=== PATIENT | female | born 1935 | race Hispanic/Latino ===

== ENCOUNTER 2017-02-15 15:05 | Observation (INO) | payer MEDICARE, OTHER ==
[2017-02-15 15:12] VITALS: BMI 25.4
[2017-02-15 16:07] LABS: ADD MANUAL DIFF? NO
--- NOTE | 2017-02-15 16:09 | ED PDOC ---
Arrival/HPI - General Historian: Patient - History of Present Illness Time/Duration: Other (2 weeks of cough) Symptom Onset: Gradual Symptom Course: Improving Severity Level: 3 - General Chief Complaint: Cough, Cold, Congestion Time Seen by Provider: 02/15/17 15:07 - History of Present Illness Narrative History of Present Illness (Text): 02/15/17 15:32 81YR old female presents today with 2 week history of productive cough, 3 day history of right ear pain and 1 week history of throat pain. no vomiting/ diarrhea. no abdominal pain. pt states she was feeling better but then today she felt for a brief moment that she couldnt catch her breath. c/o upper back pain left sided. pt also states she has been having intermittent pain to the left side of the chest that she attributes to her hx of post herpetic neuralgia. (Esther Garg) Past Medical History - Provider Review Nursing Documentation Reviewed: Yes - Travel History Have you recently traveled outside [place] w/in the past 3 mons?: No - Infectious Disease Hx of Infectious Diseases: None - Tetanus Immunization Tetanus Immunization: Unknown - Reproductive Menopause: Yes - Cardiac Hx Cardiac Disorders: Yes Hx Pacemaker: No - Pulmonary Hx Respiratory Disorders: Yes Hx Tuberculosis: Yes - Neurological Hx Neurological Disorder: No Hx Paralysis: No - HEENT Hx HEENT Disorder: Yes (pain in left ear) - Renal Hx Renal Disorder: No - Endocrine/Metabolic Hx Endocrine Disorders: Yes Hx Diabetes Mellitus Type 2: Yes Hx Hypothyroidism: Yes - Hematological/Oncological Hx Blood Transfusions: No Hx Blood Transfusion Reaction: No - Integumentary Hx Dermatological Disorder: Yes (lesion on nose removed, unsure if cancerous) - Musculoskeletal/Rheumatological Hx Musculoskeletal Disorders: No - Psychiatric Hx Emotional Abuse: No Hx Physical Abuse: No Hx Substance Use: No - Past Surgical History Past Surgical History: No Previous - Surgical History Other/Comment: sinus surgery - Anesthesia Hx Anesthesia: Yes Hx Anesthesia Reactions: No Hx Malignant Hyperthermia: No - Suicidal Assessment Feels Threatened In Home Enviroment: No Family/Social History - Physician Review Nursing Documentation Reviewed: Yes Family/Social History: Unknown Family HX Smoking Status: Never Smoked Hx Alcohol Use: No Hx Substance Use: No Hx Substance Use Treatment: No Allergies/Home Meds Allergies/Adverse Reactions: Allergies No Known Allergies Allergy (Verified 02/15/17 15:12) Home Medications: Home Meds Medication Instructions Recorded Confirmed Fenofibrate, Micronized 54 mg PO DAILY 07/29/12 02/15/17 [Fenofibrate Micronized] Levothyroxine Sodium 0.075 mg PO DAILY 07/29/12 02/15/17 Metformin Hydrochloride [Metformin 1,000 mg PO BID 07/29/12 02/15/17 HCl] Glimepiride 1 mg PO DAILY 07/15/14 02/15/17 Simvastatin 40 mg PO DAILY 07/15/14 02/15/17 Review of Systems - Review of Systems Constitutional: absent: Fatigue, Fevers ENT: Sore Throat, Sinus Congestion Respiratory: SOB, Cough Cardiovascular: absent: Chest Pain, Palpitations, Syncope Gastrointestinal: absent: Abdominal Pain, Nausea, Vomiting Musculoskeletal: absent: Arthralgias Skin: absent: Rash, Pruritis Neurological: absent: Headache, Dizziness Psychiatric: absent: Anxiety, Depression Physical Exam Vital Signs Reviewed: Yes Temperature: Afebrile Blood Pressure: Hypertensive Pulse: Regular Respiratory Rate: Normal Appearance: Positive for: Well-Appearing, Non-Toxic, Comfortable Pain Distress: None Mental Status: Positive for: Alert and Oriented X 3 - Systems Exam Head: Present: Atraumatic Conjunctiva: Present: Normal Ears: Present: Other (no mastoid tenderness or erythema .). No: Normal (B/l cerumen impactions. ) Mouth: Present: Moist Mucous Membranes, Normal Tounge, Normal Teeth. No: Drooling, Trismus Pharnyx: Present: Normal. No: ERYTHEMA, EXUDATE, TONSILS ENLARGED, Peritonsilar Swelling, Uvular Deviation, Muffled/Hoarse Voice, Strider Nose (External): Present: Atraumatic Nose (Internal): Present: Normal Inspection Neck: Present: Normal Range of Motion, Trachea Midline. No: Lymphadenopathy Respiratory/Chest: Present: Clear to Auscultation, Good Air Exchange. No: Respiratory Distress, Accessory Muscle Use, Wheezes, Retracting, Tachypneic Cardiovascular: Present: Regular Rate and Rhythm Abdomen: Present: Normal Bowel Sounds. No: Tenderness, Distention, Peritoneal Signs Neurological: Present: GCS=15 Skin: Present: Warm, Dry, Normal Color. No: Rashes Psychiatric: Present: Alert, Oriented x 3 Medical Decision Making ED Course and Treatment: 02/15/17 16:12 81yr old female with cough x 2 weeks with sore throat and earache. developed a moment of sob today. resolved. cxr:FINDINGS: LUNGS: Mild patchy opacities at the left lung base and right perihilar region. Please note that chest x-ray has limited sensitivity for the detection of pulmonary masses. PLEURA: No significant pleural effusion identified. No definite pneumothorax . CARDIOVASCULAR: Heart size appears within normal limits. Atherosclerotic calcifications of the aorta. OSSEOUS STRUCTURES: Degenerative changes. VISUALIZED UPPER ABDOMEN: Unremarkable. OTHER FINDINGS: None. IMPRESSION: Mild patchy opacities at the left lung base and right perihilar region. Developing infiltrate cannot be excluded. cbc: wnl cmp: glucose; 58, ca; 11.5 trop: wnl BNP: 512 ekg;normal sinus rhythm at 86 bpm normal intervals no ST elevations normal axis 02/15/17 18:01 pt reassessment; feeling better; discussed all results with patient in depth; will admit patient observational status for CP, SOB, abnormal xray, elevated bnp. will add rocephin and zithromax to cover for developing Infiltrate as patient with cough x 2 weeks. case discussed with dr. sanchez in depth. PT's PMD; dr. dodd. case discussed with dr. pena covering for dr. beaulieu; accepts observational status admission; she would like CT of chest without contrast. impression; Chest pain, shortness of breath, elevated bnp, abnormal xray admit observational status to tele; (Esther Garg) - Lab Interpretations Lab Results: 02/15/17 16:00 02/15/17 16:00 Lab Results 02/15/17 18:40: Urine Color Yellow, Urine Appearance Clear, Urine pH 6.0, Ur Specific [place] 1.025, Urine Protein Negative, Urine Glucose (UA) Negative, Urine Ketones Negative, Urine Blood Trace-intact H, Urine Nitrate Negative, Urine Bilirubin Negative, Urine Urobilinogen 0.2, Ur Leukocyte Esterase Trace H , Urine RBC 0 - 2, Urine WBC 5 - 10, Ur Epithelial Cells 0 - 2, Urine Bacteria Small 02/15/17 16:00: WBC 9.7 D, RBC 3.98, Hgb 13.1, Hct 38.7, MCV 97.2, MCH 32.9, MCHC 33.9, RDW 12.3, Plt Count 275, MPV 9.3, Gran % 65.1, Lymph % (Auto) 25.8, [place] % (Auto) 8.2 H, Eos % (Auto) 0.8 L, Baso % (Auto) 0.1, Gran # 6.31, Lymph # 2.5, [place] # 0.8 H, Eos # 0.1, Baso # 0.01 02/15/17 16:00: Sodium 141, Potassium 4.3, Chloride 104, Carbon Dioxide 28, Anion Gap 13, BUN 19, Creatinine 0.9, Est GFR ( Amer) > 60, Est GFR (Non- Af Amer) 60, Random Glucose 58 L, Calcium 11.5 H, Total Bilirubin 0.5, AST 41 H , ALT 31, Alkaline Phosphatase 67, Lactate Dehydrogenase 403, Total Creatine Kinase 54, Troponin I < 0.01, NT-Pro-B Natriuret Pep 512 H, Total Protein 8.3, Albumin 4.4, Globulin 3.8, Albumin/Globulin Ratio 1.2 - RAD Interpretation Radiology Orders: 02/15/17 15:31 CHEST TWO VIEWS (PA/LAT) [RAD] Stat 02/15/17 18:34 CHEST W/O CONTRAST [CT] Stat - Medication Orders Current Medication Orders: Acetaminophen (Tylenol 325mg Tab) 650 mg PO Q6H PRN PRN Reason: Fever >100.4 F Albuterol/Ipratropium (Duoneb 3 Mg/0.5 Mg (3 Ml) Ud) 3 ml IH [id number] [facility] Last Admin: 02/15/17 20:30 Dose: 3 ml Aspirin (Aspirin Chewable) 81 mg PO DAILY GRACE Atorvastatin Calcium (Lipitor) 20 mg PO HS GRACE Fenofibrate (Tricor) 48 mg PO DAILY GRACE Glimepiride (Amaryl) 1 mg PO BRK [facility] Ceftriaxone Sodium (Rocephin 1 Gram Ivpb) 1 g in 100 mls @ 100 mls/hr IVPB DAILY GRACE PRN Reason: Protocol Azithromycin (Zithromax 500mg In Ns) 500 mg in 250 mls @ 167 mls/hr IVPB DAILY GRACE PRN Reason: Protocol Insulin Human Regular (Humulin R Med) 0 units SC ACHS GRACE PRN Reason: Protocol Levothyroxine Sodium (Synthroid) 75 mcg PO ACB GRACE Metoprolol Succinate (Toprol Xl) 25 mg PO BRK GRACE Last Admin: 02/15/17 20:29 Dose: 25 mg Non-Formulary Medication (Metformin Hydrochloride [Metformin Hcl]) 1,000 mg PO BRKDIN GRACE Pantoprazole Sodium (Protonix Ec Tab) 40 mg PO 0630 GRACE Discontinued Medications Aspirin (Aspirin) 325 mg PO STAT STA Stop: 02/15/17 17:59 Last Admin: 02/15/17 19:41 Dose: 325 mg Ceftriaxone Sodium (Rocephin 1 Gram Ivpb) 1 g in 100 mls @ 200 mls/hr IVPB STAT STA PRN Reason: Protocol Stop: 02/15/17 18:26 Last Admin: 02/15/17 19:21 Dose: 200 mls/hr Azithromycin (Zithromax 500mg In Ns) 500 mg in 250 mls @ 167 mls/hr IVPB STAT STA PRN Reason: Protocol Stop: 02/15/17 19:26 Disposition/Present on Arrival - Present on Arrival Any Indicators Present on Arrival: No History of DVT/PE: No History of Uncontrolled Diabetes: No Urinary Catheter: No History of Decub. Ulcer: No History Surgical Site Infection Following: None - Disposition Have Diagnosis and Disposition been Completed?: Yes Disposition Time: 18:05 Patient Plan: Observation - Disposition Diagnosis: Chest pain, Abnormal chest x-ray, Elevated brain natriuretic peptide (BNP) level, Cough Disposition: HOSPITALIZED Patient Problems: Current Active Problems Problem Status Onset Abnormal chest x-ray Acute Chest pain Acute Cough Acute Elevated brain natriuretic peptide (BNP) level Acute Condition: FAIR
[2017-02-15 16:25] LABS: BASO # 0.01 K/mm3 (0.0-2.0); BASO % 0.1 % (0.0-3.0); EOS # 0.1 (0.0-0.7); EOS % 0.8 % (1.5-5.0); GRAN # 6.31 (1.4-6.5); GRAN % 65.1 % (50.0-68.0); HEMATOCRIT 38.7 % (36.0-48.0); LYMPH # 2.5 (1.2-3.4); LYMPH % 25.8 % (22.0-35.0); MEAN CELL VOLUME 97.2 fL (80.0-105.0); MEAN CORPUSCULAR HEMOGLOBIN 32.9 pg (25.0-35.0); MEAN CORPUSCULAR HGB CONC 33.9 g/dl (31.0-37.0); MEAN PLATELET VOLUME 9.3 fl (7.0-11.0); MONO # 0.8 (0.1-0.6); MONO % 8.2 % (1.0-6.0); PLATELET COUNT 275 10^3/uL (120.0-450.0); RED CELL DISTRIBUTION WIDTH 12.3 % (11.5-14.5); WHITE BLOOD COUNT 9.7 10^3/ul (4.5-11.0)
[2017-02-15 16:34] LABS: ALB/GLOB RATIO 1.2 (1.1-1.8); ALKALINE PHOSPHATASE 67 U/L (38-133); ALT/SGPT 31 U/L (7-56); AST/SGOT 41 U/L (15-39); BILIRUBIN,TOTAL 0.5 mg/dL (0.2-1.3); BLOOD UREA NITROGEN 19 mg/dL (7-21); CALCIUM 11.5 mg/dL (8.4-10.5); CARBON DIOXIDE 28 mmol/L (21-33); CHLORIDE 104 mmol/L (98-107); GFR AFRICAN-AMERICAN > 60; GLUCOSE,RANDOM 58 mg/dL (70-110); POTASSIUM 4.3 mmol/L (3.6-5.0); SODIUM 141 mmol/L (132-148); TOTAL PROTEIN 8.3 g/dL (5.8-8.3)
--- NOTE | 2017-02-15 16:57 | RAD ---
HISTORY: COUGH COMPARISON: Chest x-ray performed 07/15/14 TECHNIQUE: Chest PA and lateral FINDINGS: LUNGS: Mild patchy opacities at the left lung base and right perihilar region. Please note that chest x-ray has limited sensitivity for the detection of pulmonary masses. PLEURA: No significant pleural effusion identified. No definite pneumothorax . CARDIOVASCULAR: Heart size appears within normal limits. Atherosclerotic calcifications of the aorta. OSSEOUS STRUCTURES: Degenerative changes. VISUALIZED UPPER ABDOMEN: Unremarkable. OTHER FINDINGS: None. IMPRESSION: Mild patchy opacities at the left lung base and right perihilar region. Developing infiltrate cannot be excluded.
[2017-02-15 17:07] LABS: TROPONIN I < 0.01 ng/mL
[2017-02-15] MEDS ORDERED: cefTRIAXone 1 gm 1 G/100 ML BAG IVPB STA (17:57)
[2017-02-15] MEDS ORDERED: Azithromycin 500MG/NS 250ml 500 MG/250 ML BAG IVPB STA (17:57)
[2017-02-15 18:57] LABS: URINE APPEARANCE CLEAR (CLEAR); URINE BILIRUBIN NEGATIVE (NEGATIVE); URINE BLOOD TRACE-INTACT (NEGATIVE); URINE COLOR YELLOW (YELLOW); URINE GLUCOSE (UA) NEGATIVE (NEGATIVE); URINE KETONE NEGATIVE (NEGATIVE); URINE LEUKOCYTE ESTERASE TRACE Leu/uL (NEGATIVE); URINE PROTEIN NEGATIVE mg/dL (<30 mg/dL); URINE UROBILINOGEN 0.2 E.U./dL (<1 E.U./dL)
[2017-02-15 19:21] LABS: URINE BACTERIA SMALL (NEG); URINE EPITHELIAL CELLS 0 - 2 /hpf (0-5); URINE RBC 0 - 2 /hpf (0-2)
--- NOTE | 2017-02-15 19:50 | CT ---
EXAM: CT Chest Without Intravenous Contrast CLINICAL HISTORY: 81 years old, female; Abnormal findings; Abnormal radiologic exam of lung or chest; Additional info: Cough/ R/O infiltrate TECHNIQUE: Axial computed tomography images of the chest without intravenous contrast. This CT exam was performed using one or more of the following dose reduction techniques: automated exposure control, adjustment of the mA and/or kV according to patient size, and/or use of iterative reconstruction technique. MIP reconstructed images were created and reviewed. Coronal and sagittal reformatted images were created and reviewed. EXAM DATE/TIME: 02/15/2017 6:34 PM COMPARISON: CR - CHEST TWO VIEWS (PA/LAT) 02/15/2017 4:22:35 PM FINDINGS: Lungs and pleural spaces: Trachea and main bronchi are patent. There is apical scarring bilaterally left greater than right. There asymmetric groundglass opacities bilaterally. There is dependent atelectasis greatest in the lower lobes and at the lung bases. There is atelectasis/scarring in the lingula. There is a peripheral nodular opacity in the lingula, 9 x 14 mm. There is focal thickening of the minor fissure. There is no lobar or segmental consolidation. There are small blebs at the left base. There are no effusions Heart and vasculature: Heart size is normal.There is fluid in the pericardial recesses. There is mild prominence of the aortic root, 3.8 cm in diameter. There is tapering in the ascending aorta and arch. There the arch and great vessels. Main pulmonary artery is normal in caliber. Mediastinum: The esophagus is unremarkable. There is a small hiatal hernia. There are shotty mediastinal nodes.Love are not optimally evaluated without contrast material. Thyroid: Thyroid is not optimally demonstrated. Bones/joints: There are no acute osseous abnormalities Soft tissues: unremarkable Upper abdomen: There are no acute abnormalities in the visualized portion of the abdomen. There are multiple small calcifications in the liver. IMPRESSION: No lobar or segmental consolidation; atelectasis and scarring greatest at the lung bases; 9 x 14 mm nodular opacity in the lingula scarring versus true nodule; mildly dilated aortic root Additional findings as described above. Footer: As per Fleischner Society guidelines for follow-up and management of pulmonary nodules: Recommend initial follow-up chest CT at 3, 9 and 24 months. Consider contrast enhanced chest CT, PET scan and/or biopsy as clinically warranted.
[2017-02-15] MEDS: Metoprolol Succinate 25 mg XL Tab PO SCH (20:29)
[2017-02-15] MEDS: Albuterol-Ipratrop 3 mg / 0.5 (3 ml) UD IH SCH (20:30)
[2017-02-15] MEDS ORDERED: Pneumococcal 23-Valent Vaccine IM ONE (22:41)
--- NOTE | 2017-02-15 23:27 | HP ---
HISTORY OF PRESENT ILLNESS: The patient is an 81-year-old female who came to Emergency Room because of cough, congestion, shortness of breath, chest pain, back pain, sinus pressure and she has been hav ing sore throat. This morning developed chest pain that was radiating towards the back, so she got c oncerned. Because her shortness of breath increased, she came to Emergency Room for further evaluati on. She states the pain has been intermittent, more so on the left side of the chest. Denies any he moptysis, no hematemesis. Does have a history of shingles in the remote past and intermittently gets chest discomfort on the left side herpetic neuralgia. PAST MEDICAL HISTORY: Is significant for: 1. Non-insulin dependent diabetes. 2. Hypertension. 3. Hyperparathyroidism. 4. Hypothyroidism. 5. Hypercalcemia. ALLERGIES: She is not allergic to any medication. SOCIAL HISTORY: She denies smoking, drinking or alcohol use. FAMILY HISTORY: Not relevant. MEDICATIONS AT HOME: She is on simvastatin 40 mg daily, metformin 1000 twice a day, levothyroxine 75 mcg daily, glimepiride 1 mg daily, fenofibrate 145 mg daily. REVIEW OF SYSTEMS: Significant for chest discomfort, cough, congestion and back pain. PHYSICAL EXAMINATION: GENERAL: She is awake and alert, communicative. VITAL SIGNS: She is afebrile, pulse 89, respirations 19, blood pressure 154/89. LUNGS: Bilateral fair airflow, no rhonchi or crackle. HEART: S1, S2 audible. ABDOMEN: Soft, nontender, no rebound, no guarding. NEUROLOGIC: She is awake and alert, communicative. LABORATORY DATA: WBC is 9.7, hemoglobin 13, hematocrit 38, platelet 275. Chemistry: Sodium 141, po tassium 4.3, chloride 104, CO2 of 28, BUN 19, creatinine 0.9, blood sugar was , was given D50; calcium is 11.5, AST 41, ALT 31. BNP 512, troponin 0.01. X-ray of chest was done that shows mild pa tchy opacity in the left lung base and right perihilar region, possible developing infiltrate. ASSESSMENT AND PLAN: 1. Chest pain, rule out coronary artery disease, rule out underlying pneumonia. 2. History of hypertension. 3. Hyperlipidemia. 4. Non-insulin dependent diabetes. 5. Hypothyroidism. PLAN: The patient will be admitted on telemetry. Will start IV antibiotic. Blood culture and urine cultures are sent. Empirically start her on antibiotic, nebulizer treatment and will resume her med ications. Follow up blood sugar and order for CT scan of the chest and will make further recommendat ion once that is available. aCmpbell Pruett MD cc: [phone] TT: 02/15/2017 23:26:21 dn
[2017-02-15] MEDS: Insulin Reg-MEDIUM-Coverage SC SCH (23:28)
[2017-02-16] MEDS: Pantoprazole 40 mg EC Tab PO SCH (05:55)
[2017-02-16 06:55] LABS: ADD MANUAL DIFF? NO
[2017-02-16 07:12] LABS: ALB/GLOB RATIO 1.1 (1.1-1.8); ALKALINE PHOSPHATASE 69 U/L (38-133); ALT/SGPT 32 U/L (7-56); AST/SGOT 38 U/L (15-39); BILIRUBIN,TOTAL 0.3 mg/dL (0.2-1.3); BLOOD UREA NITROGEN 16 mg/dL (7-21); CALCIUM 10.7 mg/dL (8.4-10.5); CARBON DIOXIDE 27 mmol/L (21-33); CHLORIDE 106 mmol/L (98-107); GFR AFRICAN-AMERICAN > 60; GLUCOSE,RANDOM 82 mg/dL (70-110); MAGNESIUM 1.8 mg/dL (1.7-2.2); PHOSPHOROUS 2.8 mg/dL (2.5-4.5); POTASSIUM 4.7 mmol/L (3.6-5.0); SODIUM 141 mmol/L (132-148); TOTAL PROTEIN 7.5 g/dL (5.8-8.3)
[2017-02-16 07:19] LABS: BASO # 0.01 K/mm3 (0.0-2.0); BASO % 0.1 % (0.0-3.0); EOS # 0.1 (0.0-0.7); EOS % 1.3 % (1.5-5.0); GRAN # 6.28 (1.4-6.5); GRAN % 67.5 % (50.0-68.0); HEMATOCRIT 37.5 % (36.0-48.0); LYMPH % 21.5 % (22.0-35.0); MEAN CELL VOLUME 96.6 fL (80.0-105.0); MEAN CORPUSCULAR HEMOGLOBIN 32.5 pg (25.0-35.0); MEAN CORPUSCULAR HGB CONC 33.6 g/dl (31.0-37.0); MEAN PLATELET VOLUME 9.4 fl (7.0-11.0); MONO # 0.9 (0.1-0.6); MONO % 9.6 % (1.0-6.0); PLATELET COUNT 284 10^3/uL (120.0-450.0); RED CELL DISTRIBUTION WIDTH 12.4 % (11.5-14.5); WHITE BLOOD COUNT 9.3 10^3/ul (4.5-11.0)
[2017-02-16 07:25] LABS: FREE T4 1.11 ng/dL (0.78-2.19)
[2017-02-16] MEDS: Albuterol-Ipratrop 3 mg / 0.5 (3 ml) UD IH SCH ×3 (07:35→19:14)
[2017-02-16 07:39] LABS: THYROID STIMULATING HORMONE 1.58 mIU/mL (0.46-4.68)
[2017-02-16] MEDS: Insulin Reg-MEDIUM-Coverage SC SCH ×4 (08:37→22:24)
[2017-02-16] MEDS: METFORMIN HYDROCHLORIDE 1000 MG PO SCH ×2 (09:02→17:41)
[2017-02-16] MEDS: Levothyroxine 75 MCG TAB PO SCH (09:03)
[2017-02-16] MEDS: Azithromycin 500MG/NS 250ml 500 MG/250 ML BAG IVPB SCH (09:03)
[2017-02-16] MEDS: Metoprolol Succinate 25 mg XL Tab PO SCH (09:03)
[2017-02-16] MEDS: cefTRIAXone 1 gm 1 G/100 ML BAG IVPB SCH (09:03)
--- NOTE | 2017-02-16 11:59 | PN ---
DATE: 02/16/2017 SUBJECTIVE: The patient is an 81-year-old who was brought in because of cough, congestion, chest dis comfort. The patient states she feels a lot better since she came last night. PHYSICAL EXAMINATION: VITAL SIGNS: She is afebrile. Pulse 70, respirations 20, blood pressure 158/74. LUNGS: Bilateral fair airflow, no rhonchi or crackle. HEART: S1, S2 audible. ABDOMEN: Soft, obese, nontender, no rebound, no guarding. NEUROLOGIC: The patient is awake and alert. Able to communicate. No focal deficit. EXTREMITIES: Bilateral leg, no edema. LABORATORY EXAM: Sodium 141, potassium 4.7, chloride 106, CO2 of 27, BUN 16, creatinine 0.8, blood s ugar 182, calcium is 10.7. LFTs are within normal limits. Urinalysis is unremarkable. Cultures are pending. CT scan of the chest was done that shows low lobar segmental consolidation, atelectasis an d scarring, greatest in the lung base. There is a 9 14 mm nodular opacity in the lingular scar ring versus pulmonary nodule, mildly dilated aortic root and additional finding as described above. ASSESSMENT AND PLAN: 1. Chest pain seems to be noncardiac. 2. Asthmatic bronchitis. 3. History of hypertension. 4. Insulin-dependent diabetes. 5. Hyperlipidemia. 6. Hypothyroidism. PLAN: Currently patient is asymptomatic. Continue to monitor the blood pressure. She has been empi rically started on antibiotic because initially impressions on x-ray was possible pneumonia; however, CT scan is negative. I will request for cardiology evaluation. At this point, did not seem to be h ad chest pain, did not seem to be coronary ischemia. We will follow up her troponin and I will reque st for cardiology evaluation. If patient is cleared from cardiology point of view, she can be discha rged on oral antibiotic at home. Campbell Pruett MD cc: [phone] TT: 02/16/2017 11:58:22 Confirmation # [id number] Dictation # [id number] shelbie
--- NOTE | 2017-02-16 16:11 | CON ---
DATE: 02/16/2017 REASON FOR CONSULTATION: Chest pain. HISTORY OF PRESENT ILLNESS: The patient is a 81-year-old female who stated that she has no prior car diac history. She has suffered a herpes zoster infection recently in the left lower abdominal wall q uadrant. She presented because of what she described to me as pain between the shoulder blades. The patient denies any diaphoresis or chest pain. The patient reported to the ER physician that she has a history of a sore throat and right ear pain. The patient was very uncooperative during the histor y taking. SOCIAL HISTORY: The patient is a nonsmoker, nondrinker. She lost her after an open heart avalos rgery recently. MEDICATIONS: Amaryl 1 mg p.o. once a day, aspirin 81 mg once a day, albuterol inhaler q. 6 hours, Li pitor 20 mg once a day, metformin 1 gram twice a day, Protonix 40 mg once a day, Rocephin 1 g daily, Synthroid 75 mcg daily, Toprol-XL 25 mg once a day, Tricor 48 mg once a day, Zithromax 500 mg intrave nously daily. REVIEW OF SYSTEMS: No nausea or vomiting. No fever or chills. The patient does report a recurrence of left lower abdominal pain related to her recent shingles. PHYSICAL EXAMINATION: GENERAL: The patient is an elderly female who does not appear to be in any distress. VITAL SIGNS: Blood pressure 132/70, heart rate 77, temperature 97.1, respirations 20. HEENT: Normocephalic. NECK: No JVD. CHEST: Clear. HEART: S1, S2 regular. EXTREMITIES: No edema. EKG revealed sinus rhythm, LVH by voltage. Chest x-ray revealed normal cardiac silhouette, prominent bronchovascular markings. LABORATORY DATA: Hemoglobin and hematocrit 12.6 and 37.5, white count and platelet count are within normal limits. SMA-7 is within normal limits. Calcium on admission was 11.5 and today is 10.7. Two sets of troponins are negative. TSH level and free T4 were within normal limits. Chest CT scan wit hout contrast revealed apical scarring bilaterally, left greater than right. There is asymmetric pinky und glass opacity bilaterally. There is dependent atelectasis, greatest in the lower lobe at the ashley g bases. There is atelectasis/scarring in the lingula, and there is peripheral irregular opacity in the lingula 9 mm x 14 mm. There is focal thickening of the minor fissure and there is no lobar or seg mental consolidation. There are small blebs at the left base, no effusion. ASSESSMENT: 1. Chest pain, myocardial infarction is ruled out. 2. Hypercalcemia. 3. Bilateral ground-glass opacities on chest CT scan as well as apical scarring and peripheral lung nodule. 4. Hypothyroidism. 5. Diabetes mellitus and hypertension. RECOMMENDATIONS: Continue current aspirin 81 mg once a day, Lipitor 20 mg once a day, Synthroid 75 m cg once a day. Continue IV Rocephin and IV Zithromax. Continue Tricor at 40 mg daily. Obtain an ec hocardiogram. Optimize intravenous hydration in view of hypercalcemia and workup for hypercalcemia s hould be initiated keeping in mind ruling out malignancy. Sohail Emerson MD cc: [id number] TT: 02/16/2017 16:10:24 Confirmation # [id number] Dictation # [id number] mn
--- NOTE | 2017-02-16 22:11 | CARD ---
APPROVED REPORT EKG Measurement Heart [id number] <Conclusion> Normal sinus rhythm Voltage criteria for left ventricular hypertrophy ST abnormality, possible digitalis effect Abnormal ECG
[2017-02-17] MEDS: Albuterol-Ipratrop 3 mg / 0.5 (3 ml) UD IH SCH ×3 (02:44→14:03)
[2017-02-17] MEDS: Pantoprazole 40 mg EC Tab PO SCH (05:39)
[2017-02-17 06:12] VITALS: O2SAT 97
[2017-02-17 07:16] LABS: TROPONIN I < 0.01 ng/mL
[2017-02-17 07:21] LABS: ALB/GLOB RATIO 1.1 (1.1-1.8); ALKALINE PHOSPHATASE 67 U/L (38-133); ALT/SGPT 28 U/L (7-56); AST/SGOT 37 U/L (15-39); BILIRUBIN,TOTAL 0.4 mg/dL (0.2-1.3); BLOOD UREA NITROGEN 20 mg/dL (7-21); CALCIUM 11.1 mg/dL (8.4-10.5); CARBON DIOXIDE 26 mmol/L (21-33); CHLORIDE 108 mmol/L (98-107); GFR AFRICAN-AMERICAN > 60; GLUCOSE,RANDOM 97 mg/dL (70-110); POTASSIUM 4.9 mmol/L (3.6-5.0); SODIUM 143 mmol/L (132-148); TOTAL PROTEIN 7.4 g/dL (5.8-8.3)
[2017-02-17] MEDS: Insulin Reg-MEDIUM-Coverage SC SCH ×2 (07:45→12:50)
[2017-02-17] MEDS ORDERED: Budesonide 0.5 mg/2 ml Inhal Susp UD IH SCH (08:00)
--- NOTE | 2017-02-17 08:15 | CON ---
DATE: 02/17/2017 REASON FOR PULMONARY CONSULTATION: Pulmonary nodule. REFERRING PHYSICIAN: Dr. Stephane Ortiz. HISTORY OF PRESENT ILLNESS: The patient is an 81-year-old female, with past medical history significant for nbd-tuohdzj-rtraxmeyw diabetes mellitus, hypertension, hyperparathyroidism, hypothyroidism, who presented to [facility] - originally on 02/15/2017 - with main complaints of dyspnea on exertion, cough, and sputum production for the past week. The patient is not short of breath at rest. After repeated questioning, the patient denies chest pain, coughing up of blood or chest pain - made worse with deep respirations. The patient does state to some mid upper back pain - resolved at this point in time. There is no history of temperatures, chills or infectious exposure. There is no history of night sweats, weight loss or appetite change prior to the above events. No history of leg or calf pains. No history of syncope or diaphoresis. No history of recent travel or trauma. REVIEW OF SYSTEMS: No history of nausea, vomiting or diarrhea. No acute urinary symptoms. No new neurological complaints. Rest of the review of systems is negative. ALLERGIES: No known allergies. SOCIAL HISTORY: Negative for tobacco, negative for alcohol. FAMILY HISTORY: No inheritable diseases. HOME MEDICATIONS: Include simvastatin, Glucophage, levothyroxine, glimepiride, Tricor. PHYSICAL EXAMINATION: GENERAL: The patient is comfortable at rest. She is not short of breath. She is not using accessory muscles for breathing. VITAL SIGNS: Temperature is 98.4, pulse 69, respirations 18, blood pressure 157 /89. Oxygen saturation on room air is 97%. HEENT: Normocephalic, atraumatic. NECK: No JVD. CARDIOVASCULAR: Systolic ejection murmur at the lower left sternal border. No S3 gallop. LUNGS: Decreased breath sounds at the bases. Minimal bilateral rhonchi. No wheezing. EXTREMITIES: No clubbing, cyanosis, or edema. Calves are nontender to palpation. GASTROINTESTINAL: Abdomen is soft, nontender, nondistended. Bowel sounds are positive. SKIN: No acute rash. NEUROLOGIC: Limited at the present time. PERTINENT LABORATORY DATA: CAT scan of the chest was done on 02/15/2017. There are minimal, chronic appearing, ground glass changes bilaterally. There is also scarring at the lung apices. There is also some scarring/chronic appearing changes noted at both bases. Lastly, there is a small peripheral lingular nodular opacity. There is no significant lymphadenopathy. CBC: White count 9.3, hemoglobin 12.6, hematocrit 37.5, platelets of 284. Complete metabolic profile: Calcium 10.7. Rest of the metabolic profile is within normal limits. Procalcitonin level done on 02/15/2017 - negative - less than 0.05. IMPRESSION: 1. Acute bronchitis. 2. Left lingular nodule. 3. Back pain - resolved. 4. Diabetes mellitus. PLAN: The patient presents to [facility] with increasing pulmonary symptoms for the past week. The patient also stated to upper back pain - which is now resolved. I did review the CAT scan of the chest - as above. There is some minimal chronic appearing ground glass changes bilaterally. There is also scarring at the apices and probably also at the lung bases. Lastly, there is a small nodular density - peripherally in the left lingular lobe. There is no significant lymphadenopathy. On physical exam, the patient is in mild bronchospasm. There is no significant alveolar arterial gradient. Oxygen saturation on room air is now 97%. I will continue with the current nebulizer treatments and add inhaled steroids this morning. The patient is also on intravenous antibiotic therapy. Given the negative procalcitonin, and above CAT scan, we can probably de-escalate the antibiotic coverage at this point in time. Input by cardiology - Dr. Emerson - is also noted. I did discuss the CAT scan with the patient at length. I also gave her my card/information to follow up with me - as an outpatient. She fully agrees. Additional pulmonary intervention will be based on the clinical status of the patient. I will discuss the above with Dr. Ortiz this morning. Thank you very much for this pulmonary consultation. Ede Gilbert MD cc: [id number] TT: 02/17/2017 08:14:43 Confirmation # [id number] Dictation # [id number] mahnaz STONE
[2017-02-17] MEDS: cefTRIAXone 1 gm 1 G/100 ML BAG IVPB SCH (09:46)
[2017-02-17] MEDS: Levothyroxine 75 MCG TAB PO SCH (09:46)
[2017-02-17] MEDS: Metoprolol Succinate 25 mg XL Tab PO SCH (09:46)
[2017-02-17] MEDS: Azithromycin 500MG/NS 250ml 500 MG/250 ML BAG IVPB SCH (09:47)
[2017-02-17 12:26] VITALS: BP 131/82; PULSE 75; RESP 19; TEMP 97.1
[2017-02-17] MEDS ORDERED: Pneumococcal 23-Valent Vaccine IM ONE (13:38)
--- NOTE | 2017-02-17 16:10 | PN ---
DATE: 02/17/2017 REASON FOR CONSULTATION AND FOLLOWUP: Chest pain. BRIEF CLINICAL HISTORY: This is an 81-year-old female with no prior cardiac history who suffered her pes zoster infection recently, left lower quadrant. Presented because she described has pain in the shoulder blade. Denies any chest pain, denies any shortness of breath, denies any dyspnea on exertio n. PHYSICAL EXAMINATION: VITAL SIGNS: Temperature afebrile, heart rate 75, blood pressure 130/82. HEENT: PERRLA. Extraocular muscles intact. NECK: Supple. No carotid bruits. No thyromegaly. CHEST: Clear to auscultation. HEART: S1, S2 regular. ABDOMEN: Soft. EXTREMITIES: Clubbing and cyanosis negative. BLOOD WORKUP: As follows: WBC 9.3, hemoglobin 12.6, hematocrit 37.5, platelet count 284. Chemistry shows sodium 143, potassium 4.9, chloride 108, carbon dioxide 26, anion gap of 14, BUN 20, creatinin e 0.9, troponin 0.01. IMPRESSION: Atypical chest pain, no evidence of acute myocardial infarction, ____ bilateral opacitie s on the chest scan with apical scarring and peripheral lung nodule; hypothyroidism, diabetes, herpes zoster. RECOMMENDATION: Continue antibiotic. No evidence of acute [place]. Discussed with the patient, for risk stratification, suggest stress test as outpatient. Will follow with you. Thank you, Dr. Ortiz, for providing the opportunity in taking care of the patient. Bartolo Franklin MD cc: [id number] TT: 02/17/2017 16:09:39 Confirmation # [id number] Dictation # [id number] mn
--- NOTE | 2017-02-18 08:36 | DS ---
This is an 81-year-old female who came in to the hospital with chest pain. The patient was seen by tobi bender. She had troponins, which were negative. Her chest pain does not seem to be cardiac in or igin. She has no complaints of any chest pain, no shortness of breath, no nausea, no vomiting, no he adaches. She had a CT of the chest done that showed a 9 mm x 14 mm nodule opacity in the lingula. PHYSICAL EXAMINATION: VITAL SIGNS: Temperature is 98.4, pulse of 69. Blood pressure is 157/89, respirations 20, O2 satura tion 97. GENERAL: The patient is comfortable, in no acute distress. HEENT: Anicteric sclerae. Moist mucosa. NECK: No JVD or adenopathy. CARDIAC: S1/S2. No murmurs. No rubs. Regular. RESPIRATORY: Clear to auscultation bilaterally. No wheezes, rales, or rhonchi. Good air entry. ABDOMEN: Bowel sounds are positive, soft, nontender, and nondistended. EXTREMITIES: No edema. Has 1+ pulses. ASSESSMENT: 1. Chest pain, atypical. 2. A 9 mm x 14 mm nodular opacity. The patient advised to follow up with primary doctor for repeat chest CT in 3 months. 3. Asthma. 4. Hypertension. 5. Diabetes type 2. 6. Dyslipidemia. 7. Hypothyroidism. PLAN: The patient is currently comfortable. She had blood cultures, which were negative. Her TSH i s normal. She is going to be on her Lipitor for dyslipidemia. She is on aspirin. [facility] She is on Synthroid for hypothyroidism. She is on Tricor for her dysl ipidemia. She is on Rocephin for antibiotics. An echo has been ordered that is pending. She is on a heart-healthy diet. Stephane Ortiz MD cc: [id number] TT: 02/17/2017 09:16:47 shelbie
== END 2017-02-17 15:47 | disposition home or self-care (01) ==
LOC: ED 15:05 → ERH 18:41 → 2RNO 23:02
PROVIDERS: ADMIT Internal Medicine; ATTEND Internal Medicine Nephrology
DX: R07.89 Other chest pain (principal); I10 Essential (primary) hypertension; E11.9 Type 2 diabetes mellitus without complications; E78.5 Hyperlipidemia, unspecified; J45.909 Unspecified asthma, uncomplicated; E03.9 Hypothyroidism, unspecified; E83.52 Hypercalcemia; E21.3 Hyperparathyroidism, unspecified; J20.9 Acute bronchitis, unspecified; R91.1 Solitary pulmonary nodule; Z79.84 Long term (current) use of oral hypoglycemic drugs; B02.29 Other postherpetic nervous system involvement; M54.89 Other dorsalgia; Z23 Encounter for immunization
CPT/HCPCS: 36415; 71020; 71250; 80053; 81001; 82550; 82948; 83036; 83615; 83735; 83880; 83970; 84100; 84145; 84439; 84443; 84484; 85025; 87040; 87086; 90732; 93005; 94640; 94760; 96365; 97116; 97161; 99285; G0009; G0378; G8978; G8979; G8980; J0456; J0696

== ENCOUNTER 2017-04-08 12:04 | Inpatient (IN) | payer MEDICARE, OTHER ==
--- NOTE | 2017-04-08 12:46 | ED PDOC ---
Arrival/HPI - General Historian: Patient, Family - History of Present Illness Time/Duration: < week Quality: Aching Context: Home - General Chief Complaint: Back Pain Time Seen by Provider: 04/08/17 12:27 - History of Present Illness Narrative History of Present Illness (Text): 04/08/17 12:43 This 81 yo female with pmh dm, hyperparathyroididm and shingles, presents to this ED c/o right flank pain, and b/l lower back pain x 7 days. Patient stated pain initially improved, but pain has worsen last 2 days. Patient denies trauma , fever, weakness, paresthesias, GI/ incontinence, saddle anesthesia, urinary retention, urinary symptoms, or abnormal gait. Patient noted intermittent diarrhea for few weeks. (Klever Gonzalez) Past Medical History - Provider Review Nursing Documentation Reviewed: Yes - Infectious Disease Hx of Infectious Diseases: None - Tetanus Immunization Tetanus Immunization: Unknown - Cardiac Hx Cardiac Disorders: Yes Hx Hypertension: Yes - Pulmonary Hx Respiratory Disorders: Yes Hx Tuberculosis: Yes (62 years ago) - Neurological Hx Neurological Disorder: No Hx Paralysis: No - HEENT Hx HEENT Disorder: Yes (pain in left ear) - Renal Hx Renal Disorder: No - Endocrine/Metabolic Hx Endocrine Disorders: Yes Hx Diabetes Mellitus Type 2: Yes Hx Hypothyroidism: Yes - Hematological/Oncological Hx Blood Disorders: No Hx Blood Transfusions: No Hx Blood Transfusion Reaction: No - Integumentary Hx Dermatological Disorder: Yes (lesion on nose removed, unsure if cancerous) - Musculoskeletal/Rheumatological Hx Musculoskeletal Disorders: No - Gastrointestinal Hx Gastrointestinal Disorders: No - Genitourinary/Gynecological Hx Genitourinary Disorders: No - Psychiatric Hx Psychophysiologic Disorder: No Hx Emotional Abuse: No Hx Physical Abuse: No Hx Substance Use: No - Past Surgical History Past Surgical History: No Previous - Surgical History Other/Comment: sinus surgery - Anesthesia Hx Anesthesia: Yes Hx Anesthesia Reactions: No Hx Malignant Hyperthermia: No - Suicidal Assessment Feels Threatened In Home Enviroment: No Family/Social History - Physician Review Nursing Documentation Reviewed: Yes Family/Social History: No Known Family HX Smoking Status: Never Smoked Hx Alcohol Use: No Hx Substance Use: No Hx Substance Use Treatment: No Allergies/Home Meds Allergies/Adverse Reactions: Allergies No Known Allergies Allergy (Verified 04/08/17 12:19) Home Medications: Home Meds Medication Instructions Recorded Confirmed Levothyroxine Sodium 0.075 mg PO DAILY 07/29/12 04/08/17 Fenofibrate [Tricor] 54 mg PO DAILY 02/15/17 04/08/17 Glimepiride 1 mg PO DAILY 02/15/17 04/08/17 Metformin HCl [Glucophage] 1,000 mg PO BID 02/15/17 04/08/17 Simvastatin 40 mg PO DAILY 02/15/17 04/08/17 Review of Systems - Review of Systems Constitutional: Normal. absent: Fatigue, Weight Change, Fevers Eyes: Normal ENT: Normal Respiratory: Normal Cardiovascular: Normal Gastrointestinal: Abdominal Pain (right flank pain). absent: Nausea, Vomiting Genitourinary Female: Normal. absent: Dysuria Musculoskeletal: Back Pain Skin: Normal Neurological: Normal Endocrine: Normal Hemo/Lymphatic: Normal Psychiatric: Normal Physical Exam Temperature: Afebrile Blood Pressure: Normal Pulse: Regular Respiratory Rate: Normal Appearance: Positive for: Well-Appearing, Non-Toxic, Comfortable Pain Distress: None Mental Status: Positive for: Alert and Oriented X 3 - Systems Exam Head: Present: Atraumatic, Normocephalic Pupils: Present: PERRL Extroacular Muscles: Present: EOMI Conjunctiva: Present: Normal Mouth: Present: Moist Mucous Membranes Neck: Present: Normal Range of Motion Respiratory/Chest: Present: Clear to Auscultation, Good Air Exchange. No: Respiratory Distress, Accessory Muscle Use Cardiovascular: Present: Regular Rate and Rhythm, Normal S1, S2. No: Murmurs Abdomen: Present: Tenderness (mild tenderness on mid line of abdomen on deep palpation), Normal Bowel Sounds. No: Distention, Peritoneal Signs, Rebound, Guarding Back: Present: Normal Inspection, Paraspinal Tenderness (Mild right paravertebral tenderness. No vertebral point tenderness. No vertebtal step off.). No: CVA Tenderness, Midline Tenderness, Pain with Leg Raise Upper Extremity: Present: Normal Inspection, Normal ROM, NORMAL PULSES, Neurovascularly Intact, Capillary Refill < 2s. No: Cyanosis, Edema Lower Extremity: Present: Normal Inspection, NORMAL PULSES, Normal ROM, Neurovascularly Intact, Capillary Refill < 2 s. No: Edema, CALF TENDERNESS Neurological: Present: GCS=15, CN II-XII Intact, Speech Normal Skin: Present: Warm, Dry, Normal Color. No: Rashes Psychiatric: Present: Alert, Oriented x 3 Vital Signs Temp Pulse Resp BP Pulse Ox 04/08/17 12:22 98.0 F 95 H 19 150/90 97 Medical Decision Making Re-evaluation Time: 17:47 Reassessment Condition: Re-examined, Improving,but remains with symptoms - Lab Interpretations I have reviewed the lab results: Yes Interpretation: No clinic. lab abnormalty ED Course and Treatment: I was available for consultation during PA evaluation. The chart was reviewed by me, and I agree with disposition. The documented history was done by the physician cashier office. The documented physical exam was done by the physician cashier office. The documented procedures were done by the physician cashier office. (Randall Fatima) 04/08/17 14:[address] Daniel Minor regarding CT finding for abdominal dissection. He stated he will come to ED to examine patient. 04/08/17 17:[address] Daniel Minor. He reviewed the CT scan report. He said he will see patient very soon. He agrees with plan for observation. He said he will call Dr. Locke himself. 04/08/17 17:[address] Ortiz who is covering for Dr. Locke. I reviewed labs, and CT scan with him. I also informed Dr. Ortiz that Dr. Minor will be coming to ED to examine patient, and Dr. Garzon agrees with observation. Dr. Matute agreed with plan for observation. 04/08/17 18:12 Dr. Daniel Minor came to see patient. He stated patient may need Endovascular Stent Graft, possible tomorrow. He recommends Telemetry. NPO after midnight ( Gonzalez,Nahbrenda P) - Lab Interpretations Lab Results: 04/08/17 13:10 04/08/17 13:10 Lab Results 04/08/17 13:10: Sodium 143, Potassium 4.7, Chloride 104, Carbon Dioxide 27, Anion Gap 17, BUN 23 H, Creatinine 0.9, Est GFR ( Amer) > 60, Est GFR ( Non-Af Amer) 60, Random Glucose 75, Calcium 11.3 H, Total Bilirubin 0.5, AST 39 , ALT 27, Alkaline Phosphatase 58, Total Protein 8.5 H, Albumin 4.8, Globulin 3.7, Albumin/Globulin Ratio 1.3 04/08/17 13:10: WBC 7.8, RBC 4.27, Hgb 14.0, Hct 40.7, MCV 95.3, MCH 32.8, MCHC 34.4, RDW 12.6, Plt Count 262, MPV 9.4, Gran % 63.3, Lymph % (Auto) 27.9, Boyle % (Auto) 7.7 H, Eos % (Auto) 1.0 L, Baso % (Auto) 0.1, Gran # 4.93, Lymph # 2.2 , Boyle # 0.6, Eos # 0.1, Baso # 0.01 04/08/17 13:10: Urine Color Yellow, Urine Appearance Clear, Urine pH 6.0, Ur Specific [place] 1.020, Urine Protein Negative, Urine Glucose (UA) Negative, Urine Ketones Negative, Urine Blood Negative, Urine Nitrate Negative, Urine Bilirubin Negative, Urine Urobilinogen 0.2, Ur Leukocyte Esterase Negative - RAD Interpretation Narrative RAD Interpretations (Text): 04/08/17 16:33 Accession No. : [id number] Patient Name / ID : DIAMOND BAHENA / [id number] Exam Date : 04/08/2017 14:55:53 ( Approved ) Study Comment : Sex / Age : F / 81Y Creator : Daniel Burciaga MD Dictator : Daniel Burciaga MD Resistor Coater : Brand Protection Manager : Daniel Burciaga MD Approver2 : Report Date : 04/08/2017 16:07:28 My Comment : PROCEDURE: CT Abdomen and Pelvis with contrast HISTORY: dissection of abdominal artery COMPARISON: 04/08/[address] abdomen/pelvis TECHNIQUE: Contrast dose: 100 mL Visipaque 320 Please note that examination was performed with rapid bolus injection and acquired during the arteriographic phase. Radiation dose: Total exam DLP = 590.51 mGy-cm. This CT exam was performed using one or more of the following dose reduction techniques: Automated exposure control, adjustment of the mA and/or kV according to patient size, and/or use of iterative reconstruction technique. FINDINGS: LOWER THORAX: Unremarkable. LIVER: Unremarkable. No gross lesion or ductal dilatation. GALLBLADDER AND BILE DUCTS: Unremarkable. PANCREAS: There is a 6 mm low-density mass in the body of the pancreas, possibly a small cyst or cystic neoplasm common not directly adjacent to the pancreatic duct. There is no other pancreatic mass identified. There is no pancreatic ductal dilatation. There are multiple punctate pancreatic calcifications again identified. This may reflect chronic pancreatitis. SPLEEN: Unremarkable. ADRENALS: Unremarkable. No mass. KIDNEYS AND URETERS: Unremarkable. No hydronephrosis. No solid mass. VASCULATURE: There is what is either a short segment dissection of the abdominal aorta or a pseudoaneurysm of the infrarenal abdominal aorta along its left lateral aspect. This measures approximately 4 cm craniocaudal. The false lumen/aneurysm contains peripheral thrombus. There is no differential in enhancement between the true abdominal aortic lumen and the enhancing portion of the false lumen or aneurysm sac. There is no clear separate entry and exit point of contrast material into this false lumen. There is no fusiform abdominal aortic aneurysm. There is no stenosis of the celiac and superior mesenteric artery nor of the renal arteries. Common iliac, internal and external iliac arteries are all unremarkable in appearance. BOWEL: Descending and sigmoid diverticulosis without evidence diverticulitis. APPENDIX: Normal appendix. PERITONEUM: Unremarkable. No free fluid. No free air. LYMPH NODES: Unremarkable. No enlarged lymph nodes. BLADDER: Unremarkable. REPRODUCTIVE: Unremarkable uterus BONES: No acute fracture. OTHER FINDINGS: None. 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 Incidental 6 mm low-density mass in the pancreatic body, possibly a cyst or cystic neoplasm. Followup advised with contrast-enhanced CT. Additional minor findings as above. 04/08/17 18:20 CXR: NAD (Klever Gonzalez) Radiology Orders: 04/08/17 12:39 ABD & PELVIS W/O PO OR IV CONT [CT] Stat 04/08/17 14:31 ANGIO ABDOMEN & PELVIS W/CONT [CT] Stat - Medication Orders Current Medication Orders: Discontinued Medications Hydromorphone HCl (Dilaudid) 0.5 mg IVP STAT STA Stop: 04/08/17 15:48 Last Admin: 08/08/17 16:25 Dose: 0.5 mg Sodium Chloride (Sodium Chloride 0.9%) 500 mls @ 999 mls/hr IV .Q31M STA Stop: 04/08/17 15:02 Last Admin: 04/08/17 15:26 Dose: 999 mls/hr Iodixanol (Visipaque 320 Mg/Ml 100 Ml) Confirm Administered Dose 100 ml IV .STK- MED ONE Stop: 04/08/17 15:00 Morphine Sulfate (Morphine) 2 mg IVP STAT STA Stop: 04/08/17 14:39 Last Admin: 04/08/17 15:26 Dose: 2 mg Re-Assess: PAULA Pain Assessment Document 04/08/17 16:25 HI (Rec: 04/08/17 16:34 HI [id number]) Pain Reassessment Is this a pain reassessment? Yes Sleep Is patient sleeping during reassessment? No Presence of Pain Presence of Pain Yes Pain Scale Used Pain Scale Used Numeric Ondansetron HCl (Zofran Inj) 4 mg IVP STAT STA Stop: 04/08/17 14:39 Last Admin: 04/08/17 15:26 Dose: 4 mg Disposition/Present on Arrival - Present on Arrival Any Indicators Present on Arrival: No History of DVT/PE: No History of Uncontrolled Diabetes: No Urinary Catheter: No History of Decub. Ulcer: No History Surgical Site Infection Following: None - Disposition Have Diagnosis and Disposition been Completed?: Yes Disposition Time: 18:21 Patient Plan: Admission - Disposition Diagnosis: Dissecting AAA (abdominal aortic aneurysm), Intractable back pain Disposition: HOSPITALIZED Patient Problems: Current Active Problems Problem Status Onset Dissecting AAA (abdominal aortic aneurysm) Acute Intractable back pain Acute Condition: STABLE
[2017-04-08 13:33] LABS: URINE BILIRUBIN NEGATIVE (NEGATIVE); URINE BLOOD NEGATIVE (NEGATIVE); URINE GLUCOSE (UA) NEGATIVE (NEGATIVE); URINE LEUKOCYTE ESTERASE NEGATIVE Leu/uL (NEGATIVE); URINE NITRATE NEGATIVE (NEGATIVE); URINE PROTEIN NEGATIVE mg/dL (<30 mg/dL); URINE UROBILINOGEN 0.2 E.U./dL (<1 E.U./dL)
[2017-04-08 13:34] LABS: BASO # 0.01 K/mm3 (0.0-2.0); BASO % 0.1 % (0.0-3.0); EOS # 0.1 (0.0-0.7); GRAN # 4.93 (1.4-6.5); GRAN % 63.3 % (50.0-68.0); LYMPH # 2.2 (1.2-3.4); LYMPH % 27.9 % (22.0-35.0); MEAN CELL VOLUME 95.3 fl (80.0-105.0); MEAN CORPUSCULAR HEMOGLOBIN 32.8 pg (25.0-35.0); MEAN CORPUSCULAR HGB CONC 34.4 g/dl (31.0-37.0); MEAN PLATELET VOLUME 9.4 fl (7.0-11.0); MONO # 0.6 (0.1-0.6); MONO % 7.7 % (1.0-6.0); PLATELET COUNT 262 10^3/uL (120.0-450.0); RBC 4.27 10^6/uL (3.5-6.1); RED CELL DISTRIBUTION WIDTH 12.6 % (11.5-14.5); URINE APPEARANCE CLEAR (CLEAR); URINE COLOR YELLOW (YELLOW); WHITE BLOOD COUNT 7.8 10^3/ul (4.5-11.0)
[2017-04-08 13:43] LABS: ALB/GLOB RATIO 1.3 (1.1-1.8); ALBUMIN 4.8 g/dL (3.0-4.8); ALT/SGPT 27 U/L (7-56); AST/SGOT 39 U/L (15-39); BLOOD UREA NITROGEN 23 mg/dL (7-21); CALCIUM 11.3 mg/dL (8.4-10.5); GFR AFRICAN-AMERICAN > 60; GFR NON-AFRICAN AMERICAN 60
[2017-04-08] MEDS ORDERED: Sodium Chloride 0.9% 500 ML IV STA (14:32)
--- NOTE | 2017-04-08 14:32 | CT ---
PROCEDURE: CT Abdomen and Pelvis without intravenous contrast HISTORY: right flank pain COMPARISON: None. TECHNIQUE: Without contrast.. Contrast Dose: 0 Radiation dose: Total exam DLP = 553.82 mGy-cm. This CT exam was performed using one or more of the following dose reduction techniques: Automated exposure control, adjustment of the mA and/or kV according to patient size, and/or use of iterative reconstruction technique. FINDINGS: LOWER THORAX: Unremarkable. LIVER: Normal size and contour. Multiple punctate calcifications likely calcified granulomas. No mass. No biliary dilatation GALLBLADDER AND BILE DUCTS: Unremarkable. PANCREAS: No mass. Few punctate calcifications and coarse calcification in the pancreatic head, nonspecific. No pancreatic ductal dilatation. . SPLEEN: Unremarkable. ADRENALS: Unremarkable. No mass. KIDNEYS AND URETERS: No mass. 2 mm cortical calcification in the posterior mid left kidney. No renal calculus. No hydronephrosis. No hydroureter or ureteral calculus. VASCULATURE: Possible short-segment dissection of the infrarenal abdominal aorta with displaced calcified intima. The length of this possible dissection is 3.9 cm. No evidence of abdominal aortic aneurysm. Consider further evaluation with CT angiography of the abdominal aorta. Consider vascular surgery consultation. BOWEL: Sigmoid diverticulosis. No evidence of diverticulitis. Diverticulosis also involving the descending colon. No bowel obstruction. APPENDIX: Unremarkable. Normal appendix. PERITONEUM: Unremarkable. No free fluid. No free air. LYMPH NODES: Unremarkable. No enlarged lymph nodes. BLADDER: Nondistended. REPRODUCTIVE: Unremarkable uterus. BONES: No acute fracture. OTHER FINDINGS: None. IMPRESSION: Possible short-segment aortic dissection in the infrarenal abdominal aorta. No evidence of renal or ureteral calculus or urinary tract obstruction. Additional minor findings as above. This finding was discussed by telephone with ELISSA Montez at 2:30 p.m. on 04/08/2017.
[2017-04-08] MEDS ORDERED: Morphine 2 mg/ml ISec IVP STA (14:38)
[2017-04-08] MEDS ORDERED: Iodixanol 320 MG/ML 100 ML BOTTLE IV ONE (14:59)
[2017-04-08] MEDS ORDERED: HYDROmorphone 0.5 mg/0.5 ml ISec IVP STA (15:47)
--- NOTE | 2017-04-08 16:09 | CT ---
PROCEDURE: CT Abdomen and Pelvis with contrast HISTORY: dissection of abdominal artery COMPARISON: 04/08/[address] abdomen/pelvis TECHNIQUE: Contrast dose: 100 mL Visipaque 320 Please note that examination was performed with rapid bolus injection and acquired during the arteriographic phase. Radiation dose: Total exam DLP = 590.51 mGy-cm. This CT exam was performed using one or more of the following dose reduction techniques: Automated exposure control, adjustment of the mA and/or kV according to patient size, and/or use of iterative reconstruction technique. FINDINGS: LOWER THORAX: Unremarkable. LIVER: Unremarkable. No gross lesion or ductal dilatation. GALLBLADDER AND BILE DUCTS: Unremarkable. PANCREAS: There is a 6 mm low-density mass in the body of the pancreas, possibly a small cyst or cystic neoplasm common not directly adjacent to the pancreatic duct. There is no other pancreatic mass identified. There is no pancreatic ductal dilatation. There are multiple punctate pancreatic calcifications again identified. This may reflect chronic pancreatitis. SPLEEN: Unremarkable. ADRENALS: Unremarkable. No mass. KIDNEYS AND URETERS: Unremarkable. No hydronephrosis. No solid mass. VASCULATURE: There is what is either a short segment dissection of the abdominal aorta or a pseudoaneurysm of the infrarenal abdominal aorta along its left lateral aspect. This measures approximately 4 cm craniocaudal. The false lumen/aneurysm contains peripheral thrombus. There is no differential in enhancement between the true abdominal aortic lumen and the enhancing portion of the false lumen or aneurysm sac. There is no clear separate entry and exit point of contrast material into this false lumen. There is no fusiform abdominal aortic aneurysm. There is no stenosis of the celiac and superior mesenteric artery nor of the renal arteries. Common iliac, internal and external iliac arteries are all unremarkable in appearance. BOWEL: Descending and sigmoid diverticulosis without evidence diverticulitis. APPENDIX: Normal appendix. PERITONEUM: Unremarkable. No free fluid. No free air. LYMPH NODES: Unremarkable. No enlarged lymph nodes. BLADDER: Unremarkable. REPRODUCTIVE: Unremarkable uterus BONES: No acute fracture. OTHER FINDINGS: None. 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 Incidental 6 mm low-density mass in the pancreatic body, possibly a cyst or cystic neoplasm. Followup advised with contrast-enhanced CT. Additional minor findings as above.
--- NOTE | 2017-04-08 18:47 | RAD ---
HISTORY: Admission. Portable study 17:58. COMPARISON: 02/15/2017. FINDINGS: LUNGS: No active pulmonary disease. PLEURA: No significant pleural effusion identified, no pneumothorax apparent. CARDIOVASCULAR: No radiographic findings to suggest acute or significant cardiovascular disease. OSSEOUS STRUCTURES: No significant abnormalities. VISUALIZED UPPER ABDOMEN: Normal. OTHER FINDINGS: None. IMPRESSION: No active disease. No significant interval change compared to the prior examination(s). Concordant results with the preliminary interpretation rendered by the emergency department physician procedure.
[2017-04-08] MEDS ORDERED: Esmolol Hcl 2500mg/250ml NAC 250 ML IV SCH (20:15)
[2017-04-08] MEDS ORDERED: Sodium Chloride 0.45% 1,000 ML IV SCH (20:30)
[2017-04-08] MEDS ORDERED: HYDROmorphone 0.5 mg/0.5 ml ISec IVP PRN (20:45)
[2017-04-08] MEDS ORDERED: Nicardipine 20 MG/200 ML 20 MG/200 ML BAG IV PRN (22:18)
--- NOTE | 2017-04-08 22:52 | CP.PCM.CON ---
<Awa Xiong - Last Filed: 04/08/17 23:00> History of Present Illness - History of Present Illness History of Present Illness: ICU Consult Note 81 F with PMHx of DM, HLD, hypothyroidism, presenting to the [facility] [place] [facility] ED with complaints of diffuse low back pain radiating to the right flank. The pain started 7 days ago, intermittent in nature and exacerbated by sitting or lying flat and relieved mildly by standing and walking. Pt described the pain as becoming more frequent and more intense in nature which prompted her to seek medical attention. Pt denied any trauma to the area. 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 IR, Dr. Daniel Minor was consulted for Endovascular Stent Graft, possible tomorrow. At this time ICU was consulted to evaluate the pt for ICU admission. Pt was seen and examined at bedside with daughter present. Pt has complaints of diffuse low back pain. Pt is hypertensive with SBP in the 170s. Pt denied fever, chills, dizziness, sob, chest pains, palpitations, abdominal pains, n/v/d/c or urinary symptoms. PMHx: As above PSHx: hysterectomy, sinus surgery SHx: Denied tobacco/etoh/illicits abuse Family Hx; Noncontributory Meds: MAR reviewed Allergies: NKDA PMD: Dr. Locke/Dr. Matute covering Review of Systems - Review of Systems Review of Systems: as per hpi otherwise negative Past Patient History - Infectious Disease Hx of Infectious Diseases: None - Tetanus Immunizations Tetanus Immunization: Unknown - Past Social History Smoking Status: Never Smoked - CARDIAC Hx Cardiac Disorders: Yes Hx Hypertension: Yes - PULMONARY Hx Respiratory Disorders: Yes Hx Tuberculosis: Yes (62 years ago) - NEUROLOGICAL Hx Neurological Disorder: No Hx Paralysis: No - HEENT Hx HEENT Problems: Yes (pain in left ear) - RENAL Hx Chronic Kidney Disease: No - ENDOCRINE/METABOLIC Hx Endocrine Disorders: Yes Hx Diabetes Mellitus Type 2: Yes Hx Hypothyroidism: Yes - HEMATOLOGICAL/ONCOLOGICAL Hx Blood Disorders: No Hx Blood Transfusions: No Hx Blood Transfusion Reaction: No - INTEGUMENTARY Hx Dermatological Problems: Yes (lesion on nose removed, unsure if cancerous) - MUSCULOSKELETAL/RHEUMATOLOGICAL Hx Musculoskeletal Disorders: No - GASTROINTESTINAL Hx Gastrointestinal Disorders: No - GENITOURINARY/GYNECOLOGICAL Hx Genitourinary Disorders: No - PSYCHIATRIC Hx Psychophysiologic Disorder: No Hx Emotional Abuse: No Hx Physical Abuse: No Hx Substance Use: No - SURGICAL HISTORY Other/Comment: sinus surgery - ANESTHESIA Hx Anesthesia: Yes Hx Anesthesia Reactions: No Hx Malignant Hyperthermia: No Meds Allergies/Adverse Reactions: Allergies Allergy/AdvReac Type Severity Reaction Status Date / Time No Known Allergies Allergy Verified 04/08/17 12:19 - Medications Medications: Current Medications Hydralazine HCl (Apresoline) 5 mg IVP Q4H PRN PRN Reason: Systolic Blood Pressure Last Admin: 04/08/17 21:43 Dose: 5 mg Hydralazine HCl (Apresoline) 10 mg IVP Q4H PRN PRN Reason: Systolic Blood Pressure Hydromorphone HCl (Dilaudid) 0.5 mg IVP Q3H PRN PRN Reason: Pain, severe (8-10) Sodium Chloride (Sodium Chloride 0.45%) 1,000 mls @ 80 mls/hr IV .[id number] GRACE Famotidine 20 mg/ Sodium (Chloride) 52 mls @ 100 mls/hr IV DAILY GRACE Nicardipine HCl (Cardene Iv Premix) 20 mg in 200 mls @ 50 mls/hr IV .Q4H PRN; Protocol; 5 MG/HR PRN Reason: TITRATE PER MD ORDER Insulin Human Regular (Humulin R Low) 0 units SC ACHS GRACE PRN Reason: Protocol Levothyroxine Sodium (Synthroid) 37.5 mcg IVP DAILY GRACE Morphine Sulfate (Morphine) 2 mg IVP Q3H PRN PRN Reason: Pain, moderate (4-7) Ondansetron HCl (Zofran Inj) 4 mg IVP Q6H PRN PRN Reason: Nausea/Vomiting Physical Exam - Constitutional Appears: No Acute Distress - Head Exam Head Exam: ATRAUMATIC, NORMAL INSPECTION, NORMOCEPHALIC - Eye Exam Eye Exam: EOMI, Normal appearance, PERRL Pupil Exam: NORMAL ACCOMODATION, PERRL - ENT Exam ENT Exam: Mucous Membranes Moist, Normal Exam - Neck Exam Neck exam: Positive for: Normal Inspection - Respiratory Exam Respiratory Exam: Clear to Auscultation Bilateral, NORMAL BREATHING PATTERN - Cardiovascular Exam Cardiovascular Exam: REGULAR RHYTHM, +S1, +S2 - GI/Abdominal Exam GI & Abdominal Exam: Normal Bowel Sounds, Soft. absent: Tenderness - Extremities Exam Extremities exam: Positive for: normal inspection. Negative for: pedal edema, tenderness - Back Exam Back exam: NORMAL INSPECTION, paraspinal tenderness, tenderness - Neurological Exam Neurological exam: Alert, CN II-XII Intact, Normal Gait, Oriented x3, Reflexes Normal - Psychiatric Exam Psychiatric exam: Normal Affect, Normal Mood - Skin Skin Exam: Dry, Intact, Normal Color, Warm Results - Vital Signs Recent Vital Signs: Last Vital Signs Temp 98.0 F 04/08/17 12:22 Pulse 71 04/08/17 21:43 Resp 16 04/08/17 21:24 BP 171/95 H 04/08/17 21:43 Pulse Ox 96 04/08/17 21:24 - Labs Result Diagrams: 04/08/17 13:10 04/08/17 13:10 Assessment & Plan - Assessment and Plan (Free Text) Assessment: 81 F with PMHx of DM, hypothyroidism and HLD admitted to ICU for close HD monitoring in the setting of short segment abdominal aortic dissection. 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 IR, Dr. Daniel Minor was consulted for Endovascular Stent Graft, possible tomorrow Titrate cardene drip to Maintain SBP 110-150, hydralazine prn continue to monitor, IVF NS @80ml/hr Maintain MAP >65 q1 vital signs GI: NPO for Endovascular Stent Graft procedure in AM Pepcid Renal: stable continue to monitor renal fcn continue to monitor and replete electrolytes as needed strict I&Os Heme: Hgb stable cross and screen continue to monitor Endo: maintain bg 140-180 ISS low continue home synthroid, fu tsh, t4 GI DVT ppx reviewed seen reviewed and discussed with attending <Florentin Rosen Q - Last Filed: 04/08/17 23:52> Meds - Medications Medications: Current Medications Hydralazine HCl (Apresoline) 5 mg IVP Q4H PRN PRN Reason: Systolic Blood Pressure Last Admin: 04/08/17 21:43 Dose: 5 mg Hydralazine HCl (Apresoline) 10 mg IVP Q4H PRN PRN Reason: Systolic Blood Pressure Hydromorphone HCl (Dilaudid) 0.5 mg IVP Q3H PRN PRN Reason: Pain, severe (8-10) Sodium Chloride (Sodium Chloride 0.45%) 1,000 mls @ 80 mls/hr IV .[id number] GRACE Last Admin: 04/08/17 21:30 Dose: 80 mls/hr Famotidine 20 mg/ Sodium (Chloride) 52 mls @ 100 mls/hr IV DAILY GRACE Nicardipine HCl (Cardene Iv Premix) 20 mg in 200 mls @ 50 mls/hr IV .Q4H PRN; Protocol; 5 MG/HR PRN Reason: TITRATE PER MD ORDER Insulin Human Regular (Humulin R Low) 0 units SC ACHS GRACE PRN Reason: Protocol Levothyroxine Sodium (Synthroid) 37.5 mcg IVP DAILY GRACE Morphine Sulfate (Morphine) 2 mg IVP Q3H PRN PRN Reason: Pain, moderate (4-7) Ondansetron HCl (Zofran Inj) 4 mg IVP Q6H PRN PRN Reason: Nausea/Vomiting Results - Vital Signs Recent Vital Signs: Last Vital Signs Temp 98.0 F 04/08/17 12:22 Pulse 81 04/08/17 23:01 Resp 18 04/08/17 23:01 BP 144/77 04/08/17 23:01 Pulse Ox 95 04/08/17 23:01 - Labs Result Diagrams: 04/08/17 13:10 04/08/17 13:10 Attending/Attestation - Attestation I have personally seen and examined this patient.: Yes I have fully participated in the care of the patient.: Yes I have reviewed all pertinent clinical information: Yes Notes (Text): 04/08/17 23:48 I agree with the above mentioned note and exam by the Resident with the addition /exception of the following: Meds: synthroid 75mcg po daily metformin 1000mg po bid Simvasatin 40mg po qhs Tricor 54mg po daily glimepiride 1mg po daily 81 y/o female with hypothyroid/DM2 presented to the ED with 7-10days of lower back pain. CT found to have an infrarenal AAA. Patient is currently maintaining adequate hemodynamics. Initially planned to start her on an esmolol drip, however her HR is already in the high 60's, so she was placed on a cardene drip. Patient is hemodynamically stable at this time; will aim to keep her euvolemic and keep the SBP less than 140mmHg. Case discussed with Dr. Minor who plans on taking the patient for [facility]AR with a stent graft at 7am along with Vascular surgery. all labs and imaging available to me thus far has been reviewed personally total time of care: 45 minutes
[2017-04-09 00:46] LABS: INR 1.03 (0.93-1.08); MAGNESIUM 1.7 mg/dL (1.7-2.2); PARTIAL THROMBOPLASTIN TIME 25.8 Seconds (23.7-30.8); PROTHROMBIN TIME 11.1 Seconds (9.9-11.8)
[2017-04-09 01:02] LABS: TROPONIN I < 0.01 ng/mL
[2017-04-09 01:50] VITALS: BMI 24.7
--- NOTE | 2017-04-09 03:12 | CON ---
DATE: 04/08/2017 CHIEF COMPLAINT/HISTORY OF PRESENT ILLNESS: This is an 81-year-old healthy female who presents with a 7 day history of severe flank and abdominal pain. She has had some associated diarrhea. She denies fevers, sweats or chills. A CT scan with contrast reveals a dissection and penetrating ulcer versus pseudoaneurysm of the infrarenal abdominal aorta. The aneurysm measures 4 cm. The patient is tender to deep palpation of the abdominal aorta. Her lower extremity pulses are normal. She denies hypertension, but her blood pressure is 170/90. She denies chest pain or shortness of breath. PAST MEDICAL HISTORY: Significant for diabetes and hypothyroidism. She has had previous shingles. LABORATORY DATA: Unremarkable. ALLERGIES: SHE HAS NO KNOWN DRUG ALLERGIES. 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 She is currently hemodynamically stable. I explained at length the stent graft repair of the abdominal aortic aneurysm to the patient and her daughter. They wish to proceed. The risks and alternatives were explained. The patient's systolic blood pressure will be controlled over night and the patient observed in the ICU. Emergent stent graft repair will be performed in the a.m. Vascular surgery has been contacted. Daniel Minor MD MTDJennifer
[2017-04-09] MEDS ORDERED: Lidocaine 2% Inj (20ml) ONE (06:00)
[2017-04-09] MEDS ORDERED: Nitroglycerin 50mg in D5W 50 MG/250 ML BOTTLE IV ONE (06:01)
[2017-04-09] MEDS ORDERED: Iodixanol 320 MG/ML 100 ML BOTTLE IV ONE (06:01)
[2017-04-09] MEDS ORDERED: Iodixanol 320 MG/ML 200 ML BOTTLE IV ONE (06:01)
[2017-04-09] MEDS ORDERED: Etomidate 20 mg/10ml Inj IV ONE (06:46)
[2017-04-09] MEDS ORDERED: ePHEDrine 50 mg/ml Inj ONE (06:48)
[2017-04-09] MEDS: Midazolam 2 MG/2 ML VIAL ONE ×2 (06:53→10:26)
[2017-04-09 07:08] LABS: ALB/GLOB RATIO 1.3 (1.1-1.8); ALBUMIN 4.1 g/dL (3.0-4.8); ALT/SGPT 26 U/L (7-56); AST/SGOT 39 U/L (15-39); BASO # 0.02 K/mm3 (0.0-2.0); BASO % 0.2 % (0.0-3.0); BLOOD UREA NITROGEN 21 mg/dL (7-21); CALCIUM 10.4 mg/dL (8.4-10.5); EOS # 0.1 (0.0-0.7); EOS % 0.7 % (1.5-5.0); GFR AFRICAN-AMERICAN > 60; GFR NON-AFRICAN AMERICAN > 60; GRAN # 6.41 (1.4-6.5); GRAN % 71.1 % (50.0-68.0); HEMOGLOBIN 13.3 g/dL (12.0-16.0); LYMPH # 1.8 (1.2-3.4); LYMPH % 19.4 % (22.0-35.0); MEAN CELL VOLUME 95.6 fl (80.0-105.0); MEAN CORPUSCULAR HEMOGLOBIN 32.4 pg (25.0-35.0); MEAN CORPUSCULAR HGB CONC 33.8 g/dl (31.0-37.0); MEAN PLATELET VOLUME 9.4 fl (7.0-11.0); MONO # 0.8 (0.1-0.6); MONO % 8.6 % (1.0-6.0); PLATELET COUNT 233 10^3/uL (120.0-450.0); RBC 4.11 10^6/uL (3.5-6.1); RED CELL DISTRIBUTION WIDTH 12.8 % (11.5-14.5)
[2017-04-09 07:24] LABS: TROPONIN I < 0.01 ng/mL
[2017-04-09 07:38] LABS: FREE T4 1.29 ng/dL (0.78-2.19)
[2017-04-09] MEDS: Insulin Reg-LOW-Coverage SC SCH ×4 (08:00→22:47)
[2017-04-09] MEDS ORDERED: Midazolam 2 MG/2 ML VIAL ONE (08:26)
--- NOTE | 2017-04-09 09:22 | VASCULAR ---
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 PHYSICIAN(S): Daniel Minor MD. Darryl Fam MD TECHNIQUE: he relative risks and indications for the procedure were explained to the patient and her daughter and informed written consent obtained. The patient was placed supine on the arteriography table and the abdomen and groins prepped and draped in the usual sterile fashion. Conscious sedation and monitoring were provided throughout the procedure by the anesthesia department Two perclose devices were pre deployed at the right groin puncture site. The left groin was puncture percutaneously and a 7 Fr. sheath placed. The 17 Fr. sheath placed over a support guidewire. The 25-90-16-30 [employer] bifurcated main body was placed on the support wire. The sure pass wire was advanced through the right sheath and snared with a 30 mm vascular snare via the left groin. The main body was advanced in the abdominal aorta. The limbs of the graft were aligned with fluoroscopy and the entire system pulled down to the aortic bifurcation. The 0.014 guidewire was advanced through the sure pass wire and contralateral limb. The main body was deployed at the bifurcation. Angiography revealed persistent opacification of the penetrating ulcer. A CODA balloon was utilized at the proximal neck. The aneurysm remained opacified. It was elected to place a proximal extension. The delivery system was advanced to the renal arteries. The renal arteries were carefully localized with contrast via a flush catheter from the left groin. The 28-75 suprarenal aortic extension was deployed just below the renal arteries. Completion aortograms were obtain. No opacification of the penetrating ulcer was noted and the renal arteries and iliac arteries are patent with normal flow. The Perclose devices were utilized bilaterally and hemostasis was obtained. The patient tolerated the procedure well. IMPRESSION: 1) [employer]ologics bifurcated AAA stent graft repair as described above.
[2017-04-09] MEDS ORDERED: Levothyroxine 100 mcg (0.1 mg) Inj IVP SCH (10:00)
[2017-04-09] MEDS: Morphine 2 mg/ml ISec IVP PRN ×2 (10:22→14:29)
--- NOTE | 2017-04-09 14:04 | CP.PCM.PN ---
Subjective - Date & Time of Evaluation Date of Evaluation: 04/09/17 Time of Evaluation: 10:30 - Subjective Subjective: 81 y/o female with hypothyroid/DM2 presented to the ED with 7-10days of lower back pain. CT found to have an infrarenal AAA, s/p endovascular AAA stent graft repair. Patient seen and examined. Reports to be doing well. No major complaints. Reports back pain has resolved. Objective - Vital Signs/Intake and Output Vital Signs (last 24 hours): Temp Pulse Resp BP Pulse Ox 97.7 F 68 13 110/56 L 99 04/09/17 04:00 04/09/17 09:20 04/09/17 09:20 04/09/17 08:46 04/09/17 09:20 Intake and Output: 04/09/17 04/09/17 06:59 18:59 Intake Total 990 Output Total 200 Balance 790 - Medications Medications: Current Medications Amlodipine Besylate (Norvasc) 5 mg PO DAILY GRACE Famotidine (Pepcid) 20 mg PO 1000,2200 GRACE Hydromorphone HCl (Dilaudid) 0.5 mg IVP Q3H PRN PRN Reason: Pain, severe (8-10) Insulin Human Regular (Humulin R Low) 0 units SC ACHS GRACE PRN Reason: Protocol Levothyroxine Sodium (Synthroid) 75 mcg PO 0600 [facility]ACE Morphine Sulfate (Morphine) 2 mg IVP Q3H PRN PRN Reason: Pain, moderate (4-7) Last Admin: 04/09/17 10:22 Dose: 2 mg Ondansetron HCl (Zofran Inj) 4 mg IVP Q6H PRN PRN Reason: Nausea/Vomiting - Labs Labs: 04/09/17 06:00 04/09/17 06:00 PT 11.1 Seconds (9.9-11.8) 04/08/17 23:45 INR 1.03 (0.93-1.08) 04/08/17 23:45 APTT 25.8 Seconds (23.7-30.8) 04/08/17 23:45 - Constitutional Appears: Well - Head Exam Head Exam: ATRAUMATIC - Eye Exam Eye Exam: EOMI - Neck Exam Neck Exam: Full ROM - Respiratory Exam Respiratory Exam: Clear to Ausculation Bilateral - Cardiovascular Exam Cardiovascular Exam: RRR, +S1, +S2 - GI/Abdominal Exam GI & Abdominal Exam: Soft, Normal Bowel Sounds - Extremities Exam Extremities Exam: Normal Capillary Refill, Normal Inspection Assessment and Plan - Assessment and Plan (Free Text) Assessment: 81 y/o female with hypothyroid/DM2 presented to the ED with 7-10days of lower back pain. CT found to have an infrarenal AAA, s/p endovascular repair. - currently afebrile, HD stable, comfortable on room air, with no major complaints - SBP stable 120-130s off Cardene, last BP 133/65 - patient tolerated diet Infrarenal AAA s/p endovascular stent repair Hypothyroidism DM HTN Recommend: - cont with supp o2 - no resp issues - BP control, BP stable, would start Norvasc 5mg daily, patient not on any PO outpatient meds - insulin sliding scale - monitor renal function - resume diet - DC IVF - Synthroid 75mcg daily - DVT ppx
--- NOTE | 2017-04-09 16:26 | CP.PCM.PN ---
<MAYAYOBANI - Last Filed: 04/09/17 15:58> Subjective - Date & Time of Evaluation Date of Evaluation: 04/09/17 Time of Evaluation: 06:45 - Subjective Subjective: Yobani Griffin DO PGY1 - ICU Progress Note Patient seen and examined at bedside, after returning from vascular lab. No acute events reported overnight. Patient is s/p endovascular stenting for infrarenal aortic aneurysm. Patient is complaining of some mild/moderate back pain, but similar to chronic back pain which she has had for years, and dissimilar to the acute abdomen/back pain that brought her in to the hospital. She denies abdominal pain, n/v/d/c, CP, SOB. Objective - Vital Signs/Intake and Output Vital Signs (last 24 hours): Temp Pulse Resp BP Pulse Ox 97.7 F 74 13 134/69 99 04/09/17 04:00 04/09/17 15:16 04/09/17 09:20 04/09/17 15:16 04/09/17 09:20 Intake and Output: 04/09/17 04/09/17 06:59 18:59 Intake Total 990 Output Total 200 Balance 790 - Medications Medications: Current Medications Amlodipine Besylate (Norvasc) 5 mg PO DAILY GRACE Last Admin: 04/09/17 15:16 Dose: 5 mg Famotidine (Pepcid) 20 mg PO 1000,2200 [facility]ACE Hydromorphone HCl (Dilaudid) 0.5 mg IVP Q3H PRN PRN Reason: Pain, severe (8-10) Insulin Human Regular (Humulin R Low) 0 units SC ACHS GRACE PRN Reason: Protocol Last Admin: 04/09/17 11:30 Dose: Not Given Levothyroxine Sodium (Synthroid) 75 mcg PO 0600 [facility]ACE Morphine Sulfate (Morphine) 2 mg IVP Q3H PRN PRN Reason: Pain, moderate (4-7) Last Admin: 04/09/17 14:29 Dose: 2 mg Ondansetron HCl (Zofran Inj) 4 mg IVP Q6H PRN PRN Reason: Nausea/Vomiting - Labs Labs: 04/09/17 06:00 04/09/17 06:00 PT 11.1 Seconds (9.9-11.8) 04/08/17 23:45 INR 1.03 (0.93-1.08) 04/08/17 23:45 APTT 25.8 Seconds (23.7-30.8) 04/08/17 23:45 - Constitutional Appears: Non-toxic, No Acute Distress - Head Exam Head Exam: ATRAUMATIC, NORMOCEPHALIC - Eye Exam Eye Exam: EOMI, Normal appearance, PERRL - ENT Exam ENT Exam: Mucous Membranes Moist, Normal Exam - Respiratory Exam Respiratory Exam: Clear to Ausculation Bilateral. absent: Rales, Rhonchi, Wheezes - Cardiovascular Exam Cardiovascular Exam: RRR, +S1, +S2 Additional comments: Distal extremities pulses palpable bilaterally - GI/Abdominal Exam GI & Abdominal Exam: Soft. absent: Tenderness, Mass, Pulsatile Mass - Extremities Exam Extremities Exam: Full ROM. absent: Calf Tenderness, Pedal Edema - Back Exam Back Exam: paraspinal tenderness - Neurological Exam Neurological Exam: Alert, Awake, CN II-XII Intact, Oriented x3 - Psychiatric Exam Psychiatric exam: Normal Affect, Normal Mood - Skin Skin Exam: Dry, Intact, Normal Color Assessment and Plan - Assessment and Plan (Free Text) Assessment: 81 F with PMHx of DM, hypothyroidism and HLD admitted to ICU for close HD monitoring in the setting of short segment abdominal aortic dissection. Neuro: - AAOx3. 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 - s/p endovascular stent graft placement today, tolerated procedure well with no complications - d/c cardene drip, start norvasc 5 - continue to monitor, IVF NS @80ml/hr - Maintain MAP >65 - q1 vital signs GI: - Tolerating PO - Pepcid for GI ppx Renal: - stable - continue to monitor renal fcn - continue to monitor and replete electrolytes as needed - strict I&Os Heme: - Hgb stable - continue to monitor Endo: - maintain bg 140-180 - ISS low, accucheck ACHS - continue home synthroid GI DVT ppx seen reviewed and discussed with attending <Rodriguez Hanson - Last Filed: 04/09/17 18:04> Objective - Vital Signs/Intake and Output Vital Signs (last 24 hours): Temp Pulse Resp BP Pulse Ox 97.7 F 74 13 134/69 99 04/09/17 04:00 04/09/17 15:16 04/09/17 09:20 04/09/17 15:16 04/09/17 09:20 - Medications Medications: Current Medications Amlodipine Besylate (Norvasc) 5 mg PO DAILY [facility] Last Admin: 04/09/17 15:16 Dose: 5 mg Famotidine (Pepcid) 20 mg PO 1000,2200 [facility]ACE Hydromorphone HCl (Dilaudid) 0.5 mg IVP Q3H PRN PRN Reason: Pain, severe (8-10) Insulin Human Regular (Humulin R Low) 0 units SC ACHS GRACE PRN Reason: Protocol Last Admin: 04/09/17 11:30 Dose: Not Given Levothyroxine Sodium (Synthroid) 75 mcg PO 0600 [facility] Morphine Sulfate (Morphine) 2 mg IVP Q3H PRN PRN Reason: Pain, moderate (4-7) Last Admin: 04/09/17 14:29 Dose: 2 mg Ondansetron HCl (Zofran Inj) 4 mg IVP Q6H PRN PRN Reason: Nausea/Vomiting - Labs Labs: PT 11.1 Seconds (9.9-11.8) 04/08/17 23:45 INR 1.03 (0.93-1.08) 04/08/17 23:45 APTT 25.8 Seconds (23.7-30.8) 04/08/17 23:45 Assessment and Plan - Assessment and Plan (Free Text) Assessment: Please see my note for the day
[2017-04-09] MEDS ORDERED: Oxycodone/Acetaminophen 5/325 mg Tab PO PRN (19:27)
--- NOTE | 2017-04-10 01:10 | CARD ---
APPROVED REPORT EKG Measurement Heart [id number] <Conclusion> Normal sinus rhythm ST abnormality, possible digitalis effect Abnormal ECG
[2017-04-10] MEDS: Levothyroxine 75 MCG TAB PO SCH (06:06)
[2017-04-10 06:54] LABS: EOS % 0.1 % (1.5-5.0); GRAN # 7.98 (1.4-6.5); LYMPH # 0.7 (1.2-3.4); MEAN CELL VOLUME 94.1 fl (80.0-105.0); MEAN PLATELET VOLUME 9.3 fl (7.0-11.0); MONO # 0.6 (0.1-0.6); MONO % 5.9 % (1.0-6.0); PLATELET COUNT 199 10^3/uL (120.0-450.0); RBC 3.75 10^6/uL (3.5-6.1); RED CELL DISTRIBUTION WIDTH 12.6 % (11.5-14.5); WHITE BLOOD COUNT 9.3 10^3/ul (4.5-11.0)
[2017-04-10 07:08] LABS: ALB/GLOB RATIO 1.2 (1.1-1.8); ALBUMIN 3.7 g/dL (3.0-4.8); ALT/SGPT 26 U/L (7-56); AST/SGOT 37 U/L (15-39); BLOOD UREA NITROGEN 17 mg/dL (7-21); CALCIUM 9.8 mg/dL (8.4-10.5); GFR AFRICAN-AMERICAN > 60; GFR NON-AFRICAN AMERICAN > 60
--- NOTE | 2017-04-10 07:16 | CP.PCM.HP ---
<Magda Hess - Last Filed: 04/10/17 09:14> History of Present Illness - History of Present Illness History of Present Illness: CC: Back pain and flank pain Patient is an 81 y/o with pmh of NIDDM2, hypothyroidism, htn, h/o shingles, h/o back pain whom [place] [facility] [place] with worsening back pain and flank pain for 7 days, along with an episode of diarrhea. Patient at the time denies fever, chills, nausea or vomiting. Patient was hypertensive on presentation, but denied h/o htn. CT scan in the ED revealed possible short-segment aortic dissection in the infrarenal abdominal aorta. 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 Incidental 6 mm low-density mass in the pancreatic body, possibly a cyst or cystic neoplasm. IR, Dr Daniel Minor was consulted, whom recommended BP control and endovascular procedure. Patient was admitted to ICU for monitoring. Patient underwent successful endovascular repair of the AAA with stent graft yesterday, and is currently feeling better. Patient states she was giving morphine last night, and had an episode of vomiting afterward. Patient c/o constipation, no bowel movement for almost a week. Patient c/o back pain, patient states it has improved overall. Patient denies fever, chills, no n.v.d at this moment. Denies cp, sob, dizziness, headache or lightheadedness. PMH: NIDDM2, Hypothyroidism, hld, h/o shingles, basal cell carcinoma s/p surgery PSH: Basal cell carcinoma repair, 2 years ago. Social: denies any h/o tobacco, alcohol or illicit drug use. Present on Admission - Present on Admission Any Indicators Present on Admission: No History of DVT/PE: No History of Uncontrolled Diabetes: No Urinary Catheter: No Decubitus Ulcer Present: No History Surgical Site Infection Following: None Review of Systems - Review of Systems All systems: reviewed and no additional remarkable complaints except Review of Systems: 12 point ROS reviewed, all negative except as per HPI. Past Patient History - Infectious Disease Hx of Infectious Diseases: None - Tetanus Immunizations Tetanus Immunization: Unknown - Past Social History Smoking Status: Never Smoked Alcohol: None Drugs: Denies Home Situation {Lives}: With Family - CARDIAC Hx Cardiac Disorders: Yes Hx Hypertension: Yes - PULMONARY Hx Respiratory Disorders: Yes Hx Tuberculosis: Yes (62 years ago) - NEUROLOGICAL Hx Neurological Disorder: No - HEENT Hx HEENT Problems: Yes (pain in left ear) - RENAL Hx Chronic Kidney Disease: No - ENDOCRINE/METABOLIC Hx Endocrine Disorders: Yes Hx Diabetes Mellitus Type 2: Yes Hx Hypothyroidism: Yes - HEMATOLOGICAL/ONCOLOGICAL Hx Blood Disorders: No - INTEGUMENTARY Hx Dermatological Problems: Yes (lesion on nose removed, unsure if cancerous) - MUSCULOSKELETAL/RHEUMATOLOGICAL Hx Falls: No - GASTROINTESTINAL Hx Gastrointestinal Disorders: No - GENITOURINARY/GYNECOLOGICAL Hx Genitourinary Disorders: No - PSYCHIATRIC Hx Psychophysiologic Disorder: No Hx Emotional Abuse: No Hx Physical Abuse: No - SURGICAL HISTORY Other/Comment: sinus surgery - ANESTHESIA Hx Anesthesia: Yes Hx Anesthesia Reactions: No Hx Malignant Hyperthermia: No Meds Allergies/Adverse Reactions: Allergies Allergy/AdvReac Type Severity Reaction Status Date / Time No Known Allergies Allergy Verified 04/08/17 12:19 Physical Exam - Constitutional Appears: No Acute Distress - Head Exam Head Exam: ATRAUMATIC, NORMAL INSPECTION, NORMOCEPHALIC - Eye Exam Eye Exam: EOMI, Normal appearance, PERRL. absent: Scleral icterus Pupil Exam: NORMAL ACCOMODATION, PERRL - ENT Exam ENT Exam: Mucous Membranes Moist - Neck Exam Neck exam: Positive for: Normal Inspection - Respiratory Exam Respiratory Exam: Clear to Auscultation Bilateral, NORMAL BREATHING PATTERN. absent: Rales, Rhonchi, Wheezes, Respiratory Distress, Stridor - Cardiovascular Exam Cardiovascular Exam: REGULAR RHYTHM, +S1, +S2. absent: Bradycardia, Tachycardia - GI/Abdominal Exam GI & Abdominal Exam: Normal Bowel Sounds, Soft. absent: Distended, Firm, Guarding, Rigid, Tenderness - Extremities Exam Extremities exam: Positive for: normal inspection. Negative for: pedal edema Additional comments: + 2 dorsalis pedis and posterior tibial; pulses b/l. - Back Exam Back exam: NORMAL INSPECTION - Neurological Exam Neurological exam: Alert, CN II-XII Intact, Oriented x3, Reflexes Normal - Psychiatric Exam Psychiatric exam: Normal Affect, Normal Mood - Skin Skin Exam: Dry, Intact, Normal Color, Warm Results - Vital Signs Recent Vital Signs: Last Vital Signs Temp 98.5 F 04/10/17 04:00 Pulse 86 04/10/17 04:00 Resp 12 04/10/17 04:00 BP 146/79 04/10/17 02:27 Pulse Ox 95 04/10/17 04:00 - Labs Result Diagrams: 04/10/17 05:30 04/10/17 05:30 Labs: Laboratory Results - last 24 hr 04/09/17 04/09/17 04/10/17 18:31 22:35 05:30 WBC 9.3 RBC 3.75 Hgb 12.0 Hct 35.3 L MCV 94.1 MCH 32.0 MCHC 34.0 RDW 12.6 Plt Count 199 MPV 9.3 Gran % 86.0 H Lymph % (Auto) 8.0 L [place] % (Auto) 5.9 Eos % (Auto) 0.1 L Baso % (Auto) 0.0 Gran # 7.98 H Lymph # 0.7 L [place] # 0.6 Eos # 0.0 Baso # 0.00 Sodium Potassium Chloride Carbon Dioxide Anion Gap BUN Creatinine Est GFR ( Amer) Est GFR (Non-Af Amer) POC Glucose (mg/dL) 162 H 210 H Random Glucose Calcium Total Bilirubin AST ALT Alkaline Phosphatase Total Protein Albumin Globulin Albumin/Globulin Ratio 04/10/17 05:30 WBC RBC Hgb Hct MCV MCH MCHC RDW Plt Count MPV Gran % Lymph % (Auto) [place] % (Auto) Eos % (Auto) Baso % (Auto) Gran # Lymph # [place] # Eos # Baso # Sodium 139 Potassium 4.2 Chloride 105 Carbon Dioxide 25 Anion Gap 13 BUN 17 Creatinine 0.8 Est GFR ( Amer) > 60 Est GFR (Non-Af Amer) > 60 POC Glucose (mg/dL) Random Glucose 139 H Calcium 9.8 Total Bilirubin 0.5 AST 37 ALT 26 Alkaline Phosphatase 46 Total Protein 6.7 Albumin 3.7 Globulin 3.0 Albumin/Globulin Ratio 1.2 Assessment & Plan - Assessment and Plan (Free Text) Assessment: 1) Infrarenal AAA s/p endovascular repair day 1. 2) HTN 3) Constipation 4) Hypothyroidism 5) HLD 6) NIDDM2 7) Pancreatic cyst on CT 8) Back pain Plan: Patient to be transferred out of ICU to tele floor. PT for deconditioning state. Will give miralax for constipation. Will continue Norvasc for htn, zofran prn for nausea, synthroid for hypothyroidism, ISS for DM. Patient is on Pepcid for Gi prophyalxis and SCDs for dvt prophylaxis. Will add lipid panel and hgba1c to the am lab. Patient seen, examined and case discussed with Dr Ortiz. - Date & Time Date: 04/10/17 Time: 07:30 <Stephane Ortiz S - Last Filed: 04/10/17 16:50> Results - Vital Signs Recent Vital Signs: Last Vital Signs Temp 97.3 F L 04/10/17 16:00 Pulse 74 04/10/17 16:30 Resp 21 04/10/17 16:30 BP 130/89 04/10/17 16:27 Pulse Ox 98 04/10/17 16:30 - Labs Result Diagrams: 04/10/17 05:30 04/10/17 05:30 Labs: Laboratory Results - last 24 hr 04/09/17 04/09/17 04/10/17 18:31 22:35 05:30 WBC 9.3 RBC 3.75 Hgb 12.0 Hct 35.3 L MCV 94.1 MCH 32.0 MCHC 34.0 RDW 12.6 Plt Count 199 MPV 9.3 Gran % 86.0 H Lymph % (Auto) 8.0 L [place] % (Auto) 5.9 Eos % (Auto) 0.1 L Baso % (Auto) 0.0 Gran # 7.98 H Lymph # 0.7 L [place] # 0.6 Eos # 0.0 Baso # 0.00 Sodium Potassium Chloride Carbon Dioxide Anion Gap BUN Creatinine Est GFR ( Amer) Est GFR (Non-Af Amer) POC Glucose (mg/dL) 162 H 210 H Random Glucose Hemoglobin A1c Calcium Total Bilirubin AST ALT Alkaline Phosphatase Total Protein Albumin Globulin Albumin/Globulin Ratio Triglycerides Cholesterol LDL Cholesterol Direct HDL Cholesterol 04/10/17 04/10/17 04/10/17 05:30 05:30 05:30 WBC RBC Hgb Hct MCV MCH MCHC RDW Plt Count MPV Gran % Lymph % (Auto) [place] % (Auto) Eos % (Auto) Baso % (Auto) Gran # Lymph # [place] # Eos # Baso # Sodium 139 Potassium 4.2 Chloride 105 Carbon Dioxide 25 Anion Gap 13 BUN 17 Creatinine 0.8 Est GFR ( Amer) > 60 Est GFR (Non-Af Amer) > 60 POC Glucose (mg/dL) Random Glucose 139 H Hemoglobin A1c 5.7 Calcium 9.8 Total Bilirubin 0.5 AST 37 ALT 26 Alkaline Phosphatase 46 Total Protein 6.7 Albumin 3.7 Globulin 3.0 Albumin/Globulin Ratio 1.2 Triglycerides 142 Cholesterol 116 L LDL Cholesterol Direct 57 HDL Cholesterol 34 04/10/17 04/10/17 04/10/17 08:12 11:18 16:02 WBC RBC Hgb Hct MCV MCH MCHC RDW Plt Count MPV Gran % Lymph % (Auto) [place] % (Auto) Eos % (Auto) Baso % (Auto) Gran # Lymph # [place] # Eos # Baso # Sodium Potassium Chloride Carbon Dioxide Anion Gap BUN Creatinine Est GFR ( Amer) Est GFR (Non-Af Amer) POC Glucose (mg/dL) 115 H 129 H 171 H Random Glucose Hemoglobin A1c Calcium Total Bilirubin AST ALT Alkaline Phosphatase Total Protein Albumin Globulin Albumin/Globulin Ratio Triglycerides Cholesterol LDL Cholesterol Direct HDL Cholesterol Assessment & Plan - Assessment and Plan (Free Text) Plan: Pt seen and examined. Resident note reviewed and agree with. I evaluated the pt myself and discussed it with the resident. She is going to be transferred out of the ICU. I was not able to see her yesterday as she was on the table for the AAA graft insertion. I was able to speak to Dr Daniel Minor just prior to the procedure.
[2017-04-10] MEDS: Insulin Reg-LOW-Coverage SC SCH ×3 (08:21→22:55)
[2017-04-10] MEDS: POLYETHYLENE GLYCOL 3350 17 GM/Dose PACKET PO SCH (09:51)
[2017-04-10 10:09] LABS: HDL CHOLESTEROL 34 mg/dL (29-60)
[2017-04-10 10:19] LABS: LDL CHOLESTEROL 57 mg/dL (0-129)
--- NOTE | 2017-04-10 11:18 | CP.PCM.PN ---
Subjective - Date & Time of Evaluation Date of Evaluation: 04/10/17 Time of Evaluation: 11:16 - Subjective Subjective: Patient seen and examined. Reports improving back pain, and mild nausea without vomiting. Otherwise doing well. Objective - Vital Signs/Intake and Output Vital Signs (last 24 hours): Temp Pulse Resp BP Pulse Ox 98.2 F 86 18 149/73 98 04/10/17 08:00 04/10/17 11:00 04/10/17 09:50 04/10/17 09:27 04/10/17 09:50 Intake and Output: 04/10/17 04/10/17 06:59 18:59 Intake Total 200 Output Total 150 Balance 50 - Medications Medications: Current Medications Amlodipine Besylate (Norvasc) 5 mg PO DAILY [facility] Last Admin: 04/10/17 09:51 Dose: Not Given Famotidine (Pepcid) 20 mg PO 1000,2200 [facility] Last Admin: 04/10/17 09:51 Dose: Not Given Insulin Human Regular (Humulin R Low) 0 units SC ACHS [facility] PRN Reason: Protocol Last Admin: 04/10/17 08:21 Dose: Not Given Levothyroxine Sodium (Synthroid) 75 mcg PO 0600 [facility] Last Admin: 04/10/17 06:06 Dose: 75 mcg Ondansetron HCl (Zofran Inj) 4 mg IVP Q4H PRN PRN Reason: Nausea/Vomiting Last Admin: 04/10/17 06:06 Dose: 4 mg Oxycodone/Acetaminophen (Percocet 5/325 Mg Tab) 1 tab PO Q6H PRN PRN Reason: Pain, moderate (4-7) Stop: 04/12/17 19:28 Polyethylene Glycol (Miralax) 17 gm PO DAILY [facility] Last Admin: 04/10/17 09:51 Dose: 17 gm - Labs Labs: 04/10/17 05:30 04/10/17 05:30 PT 11.1 Seconds (9.9-11.8) 04/08/17 23:45 INR 1.03 (0.93-1.08) 04/08/17 23:45 APTT 25.8 Seconds (23.7-30.8) 04/08/17 23:45 - Constitutional Appears: Well - Head Exam Head Exam: ATRAUMATIC - Eye Exam Eye Exam: Normal appearance - Respiratory Exam Respiratory Exam: Clear to Ausculation Bilateral, NORMAL BREATHING PATTERN - Cardiovascular Exam Cardiovascular Exam: REGULAR RHYTHM, +S1, +S2 - GI/Abdominal Exam GI & Abdominal Exam: Normal Bowel Sounds - Extremities Exam Extremities Exam: Normal Inspection Assessment and Plan - Assessment and Plan (Free Text) Assessment: 81 y/o female with hypothyroid/DM2 presented to the ED with 7-10days of lower back pain. CT found to have an infrarenal AAA, s/p endovascular repair. - currently afebrile, HD stable, comfortable on room air, - BP stable Infrarenal AAA s/p endovascular stent repair Hypothyroidism DM HTN Recommend: - no resp issues - BP control, BP stable, continue Norvasc 5mg daily - insulin sliding scale - Synthroid 75mcg daily - DVT ppx - transfer to regular medical floor
[2017-04-10 18:05] VITALS: RESP 20
[2017-04-11] MEDS: Levothyroxine 75 MCG TAB PO SCH (05:13)
[2017-04-11 07:54] LABS: BASO # 0.01 K/mm3 (0.0-2.0); BASO % 0.1 % (0.0-3.0); EOS # 0.1 (0.0-0.7); GRAN # 5.39 (1.4-6.5); GRAN % 70.2 % (50.0-68.0); HEMOGLOBIN 11.6 g/dL (12.0-16.0); LYMPH # 1.4 (1.2-3.4); LYMPH % 18.6 % (22.0-35.0); MEAN CELL VOLUME 95.6 fl (80.0-105.0); MEAN CORPUSCULAR HEMOGLOBIN 32.1 pg (25.0-35.0); MEAN CORPUSCULAR HGB CONC 33.6 g/dl (31.0-37.0); MEAN PLATELET VOLUME 9.5 fl (7.0-11.0); MONO # 0.8 (0.1-0.6); MONO % 10.1 % (1.0-6.0); PLATELET COUNT 187 10^3/uL (120.0-450.0); RBC 3.61 10^6/uL (3.5-6.1); RED CELL DISTRIBUTION WIDTH 12.6 % (11.5-14.5); WHITE BLOOD COUNT 7.7 10^3/ul (4.5-11.0)
[2017-04-11 08:06] LABS: ALB/GLOB RATIO 1.2 (1.1-1.8); ALBUMIN 3.6 g/dL (3.0-4.8); ALT/SGPT 25 U/L (7-56); AST/SGOT 34 U/L (15-39); BLOOD UREA NITROGEN 18 mg/dL (7-21); CALCIUM 10.2 mg/dL (8.4-10.5); GFR AFRICAN-AMERICAN > 60; GFR NON-AFRICAN AMERICAN 60
[2017-04-11] MEDS: Insulin Reg-LOW-Coverage SC SCH ×4 (09:13→22:10)
[2017-04-11] MEDS: Lidocaine 5% Patch TD SCH (09:14)
[2017-04-11] MEDS: POLYETHYLENE GLYCOL 3350 17 GM/Dose PACKET PO SCH (09:14)
--- NOTE | 2017-04-11 09:30 | CP.PCM.PN ---
<Magda Hess - Last Filed: 04/11/17 09:27> Subjective - Date & Time of Evaluation Date of Evaluation: 04/11/17 Time of Evaluation: 07:15 - Subjective Subjective: Progress note for Dr Ortiz service Patient c/o right sided hip pain, states this is new. Patient denied h/o falls. Patient denied radiation to the lower extremities. Admits to constipation, denies abdominal pain, denies n.v.d, denies fever or chills. No cp or sob. Objective - Vital Signs/Intake and Output Vital Signs (last 24 hours): Temp Pulse Resp BP Pulse Ox 97.9 F 79 20 145/70 97 04/11/17 08:10 04/11/17 09:14 04/11/17 08:10 04/11/17 09:14 04/11/17 08:10 Intake and Output: 04/11/17 04/11/17 06:59 18:59 Intake Total 360 Output Total 600 Balance -240 - Medications Medications: Current Medications Amlodipine Besylate (Norvasc) 5 mg PO DAILY [facility] Last Admin: 04/11/17 09:14 Dose: 5 mg Famotidine (Pepcid) 20 mg PO 1000,2200 [facility] Last Admin: 04/11/17 09:15 Dose: 20 mg Insulin Human Regular (Humulin R Low) 0 units SC ACHS [facility] PRN Reason: Protocol Last Admin: 04/11/17 09:13 Dose: Not Given Levothyroxine Sodium (Synthroid) 75 mcg PO 0600 [facility] Last Admin: 04/11/17 05:13 Dose: 75 mcg Lidocaine (Lidoderm) 1 ea TD DAILY [facility] Last Admin: 04/11/17 09:14 Dose: 1 ea Ondansetron HCl (Zofran Inj) 4 mg IVP Q4H PRN PRN Reason: Nausea/Vomiting Last Admin: 04/10/17 06:06 Dose: 4 mg Oxycodone/Acetaminophen (Percocet 5/325 Mg Tab) 1 tab PO Q6H PRN PRN Reason: Pain, moderate (4-7) Stop: 04/12/17 19:28 Polyethylene Glycol (Miralax) 17 gm PO DAILY [facility] Last Admin: 04/11/17 09:14 Dose: 17 gm - Labs Labs: 04/11/17 07:00 04/11/17 07:00 PT 11.1 Seconds (9.9-11.8) 04/08/17 23:45 INR 1.03 (0.93-1.08) 04/08/17 23:45 APTT 25.8 Seconds (23.7-30.8) 04/08/17 23:45 - Constitutional Appears: No Acute Distress - Head Exam Head Exam: ATRAUMATIC, NORMAL INSPECTION, NORMOCEPHALIC - Eye Exam Eye Exam: EOMI, Normal appearance, PERRL. absent: Scleral icterus - ENT Exam ENT Exam: Mucous Membranes Moist - Neck Exam Neck Exam: Full ROM, Normal Inspection - Respiratory Exam Respiratory Exam: Clear to Ausculation Bilateral, NORMAL BREATHING PATTERN. absent: Rales, Rhonchi, Wheezes, Respiratory Distress, Stridor - Cardiovascular Exam Cardiovascular Exam: REGULAR RHYTHM, +S1, +S2. absent: Murmur - GI/Abdominal Exam GI & Abdominal Exam: Soft, Normal Bowel Sounds. absent: Distended, Firm, Guarding, Rigid, Tenderness Additional comments: + 2 femoral pulses b/l. - Back Exam Back Exam: NORMAL INSPECTION, tenderness. absent: muscle spasm, paraspinal tenderness, rash noted, vertebral tenderness Additional comments: No rashes noted, patient is tender at the right hip. - Neurological Exam Neurological Exam: Alert, Awake, Oriented x3 Neuro motor strength exam: Left Upper Extremity: 5, Right Upper Extremity: 5, Left Lower Extremity: 5, Right Lower Extremity: 5 - Psychiatric Exam Psychiatric exam: Normal Affect, Normal Mood - Skin Skin Exam: Dry, Intact, Warm Additional comments: a growth on the right middle finger. Assessment and Plan - Assessment and Plan (Free Text) Assessment: 1) Infrarenal AAA s/p endovascular repair day 2. 2) HTN 3) Constipation 4) Hypothyroidism 5) HLD 6) NIDDM2 7) Pancreatic cyst on CT 8) Right hip pain 9) Deconditioned state. Plan: Will give lidoderm patch for right hip pain, miralax for constipation. On Norvasc for htn, ISS for DM, synthroid for hypothyroidism. Patient also has prn zofran for n/v, and percocet for pain. Pending TCU eval and transfer for PT. Patient seen, and examined, case discussed with Dr Ortiz. <Stephane Ortiz S - Last Filed: 04/12/17 18:38> Objective - Vital Signs/Intake and Output Vital Signs (last 24 hours): Temp Pulse Resp BP Pulse Ox 98 F 79 20 157/94 H 99 04/12/17 08:23 04/12/17 09:04 04/12/17 08:23 04/12/17 09:04 04/12/17 08:23 Intake and Output: 04/12/17 04/12/17 06:59 18:59 Intake Total 0 Balance 0 - Labs Labs: 04/12/17 06:10 04/12/17 06:10 PT 11.1 Seconds (9.9-11.8) 04/08/17 23:45 INR 1.03 (0.93-1.08) 04/08/17 23:45 APTT 25.8 Seconds (23.7-30.8) 04/08/17 23:45 Assessment and Plan - Assessment and Plan (Free Text) Plan: Pt was seen and examined. Resident note reviewed and I agree with. The case was discussed with the resident. Pt has no pain. PT eval. meds reviewed
--- NOTE | 2017-04-11 11:43 | CP.PCM.CON ---
<Estrellita Banerjee - Last Filed: 04/11/17 11:44> History of Present Illness - History of Present Illness History of Present Illness: Seen and examined at the bedside, chart was reviewed. Request for consult is for pancreatic mass. HPI: This is an 82-year-old female with a past medical history of diabetes mellitus type 2, hypothyroidism, shingles and hypertension came to the emergency room complaining of worsening pain for past several for at least 7 days and episodes of diarrhea. On admission the patient had a CT scan in the emergency room which reported a possible short segment aortic dissection in the infrarenal abdominal aorta. 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 Also found a 6 mm low-density mass in the pancreatic body, possibly a cyst or cystic neoplasm. The patient recently underwent a endovascular repair of the abdominal aortic aneurysm with stent graft on . She she does report weight loss over a year ago about 10 pounds when she moved in with her daughter, currently her weight is 146 and has been steady. She complains of occasional nausea but mainly secondary to the morphine that she was given, several episodes of vomiting. She still reports no bowel movement for the past 4 days, denies passing any flatus. She normally moves her bowels regularly and consumes a diet high in fiber. No reports of any melena or bright red blood per rectum. Denies ever having endoscopy or colonoscopy. Currently she does complain of lower back pain mostly right-sided and describes it as spasms. Patient does report a good appetite. No complaints of shortness of breath, chest pain, fever or chills. PMH: [id number] diabetes mellitus type 2, history of shingles, hyperlipidemia, hypothyroidism, basal cell carcinoma status post surgery PSH:basal cell carcinoma repair, denies abdominal or cardiac procedures Social history: Denies smoking, EtOH or substance abuse. Family history: Denies contributing factors Allergies: No known drug allergies Medications: Reviewed as per MAR ROS: Systems reviewed a positive finding see HPI. Past Patient History - Infectious Disease Hx of Infectious Diseases: None - Tetanus Immunizations Tetanus Immunization: Unknown - Past Social History Smoking Status: Never Smoked Alcohol: None Drugs: Denies Home Situation {Lives}: With Family - CARDIAC Hx Cardiac Disorders: Yes Hx Hypertension: Yes - PULMONARY Hx Respiratory Disorders: Yes Hx Tuberculosis: Yes (62 years ago) - NEUROLOGICAL Hx Neurological Disorder: No - HEENT Hx HEENT Problems: Yes (pain in left ear) - RENAL Hx Chronic Kidney Disease: No - ENDOCRINE/METABOLIC Hx Endocrine Disorders: Yes Hx Diabetes Mellitus Type 2: Yes Hx Hypothyroidism: Yes - HEMATOLOGICAL/ONCOLOGICAL Hx Blood Disorders: No - INTEGUMENTARY Hx Dermatological Problems: Yes (lesion on nose removed, unsure if cancerous) - MUSCULOSKELETAL/RHEUMATOLOGICAL Hx Falls: No - GASTROINTESTINAL Hx Gastrointestinal Disorders: No - GENITOURINARY/GYNECOLOGICAL Hx Genitourinary Disorders: No - PSYCHIATRIC Hx Psychophysiologic Disorder: No Hx Emotional Abuse: No Hx Physical Abuse: No - SURGICAL HISTORY Other/Comment: sinus surgery - ANESTHESIA Hx Anesthesia: Yes Hx Anesthesia Reactions: No Hx Malignant Hyperthermia: No Meds Allergies/Adverse Reactions: Allergies Allergy/AdvReac Type Severity Reaction Status Date / Time No Known Allergies Allergy Verified 04/08/17 12:19 - Medications Medications: Current Medications Amlodipine Besylate (Norvasc) 5 mg PO DAILY [facility] Last Admin: 04/11/17 09:14 Dose: 5 mg Famotidine (Pepcid) 20 mg PO 1000,2200 [facility] Last Admin: 04/11/17 09:15 Dose: 20 mg Insulin Human Regular (Humulin R Low) 0 units SC ACHS [facility] PRN Reason: Protocol Last Admin: 04/11/17 09:13 Dose: Not Given Levothyroxine Sodium (Synthroid) 75 mcg PO 0600 [facility] Last Admin: 04/11/17 05:13 Dose: 75 mcg Lidocaine (Lidoderm) 1 ea TD DAILY [facility] Last Admin: 04/11/17 09:14 Dose: 1 ea Ondansetron HCl (Zofran Inj) 4 mg IVP Q4H PRN PRN Reason: Nausea/Vomiting Last Admin: 04/10/17 06:06 Dose: 4 mg Oxycodone/Acetaminophen (Percocet 5/325 Mg Tab) 1 tab PO Q6H PRN PRN Reason: Pain, moderate (4-7) Stop: 04/12/17 19:28 Polyethylene Glycol (Miralax) 17 gm PO DAILY [facility] Last Admin: 04/11/17 09:14 Dose: 17 gm Physical Exam - Constitutional Appears: No Acute Distress - Head Exam Head Exam: NORMOCEPHALIC - Eye Exam Eye Exam: absent: Scleral icterus - ENT Exam ENT Exam: Mucous Membranes Moist - Neck Exam Neck exam: Positive for: Normal Inspection - Respiratory Exam Respiratory Exam: Decreased Breath Sounds, NORMAL BREATHING PATTERN. absent: Rales, Wheezes - Cardiovascular Exam Cardiovascular Exam: +S1, +S2 - GI/Abdominal Exam GI & Abdominal Exam: Normal Bowel Sounds, Soft. absent: Distended, Guarding, Organomegaly, Rebound, Tenderness - Extremities Exam Extremities exam: Positive for: pedal pulses present. Negative for: calf tenderness, pedal edema - Back Exam Back exam: absent: CVA tenderness (L), CVA tenderness (R), paraspinal tenderness - Neurological Exam Neurological exam: Alert, Oriented x3 - Skin Skin Exam: Dry, Warm Results - Vital Signs Recent Vital Signs: Last Vital Signs Temp 97.9 F 04/11/17 08:10 Pulse 79 04/11/17 09:14 Resp 20 04/11/17 08:10 BP 145/70 04/11/17 09:14 Pulse Ox 97 04/11/17 08:10 - Labs Result Diagrams: 04/11/17 07:00 04/11/17 07:00 Labs: Laboratory Results - last 24 hr 04/10/17 04/10/17 04/10/17 05:30 11:18 16:02 WBC RBC Hgb Hct MCV MCH MCHC RDW Plt Count MPV Gran % Lymph % (Auto) [place] % (Auto) Eos % (Auto) Baso % (Auto) Gran # Lymph # [place] # Eos # Baso # Sodium Potassium Chloride Carbon Dioxide Anion Gap BUN Creatinine Est GFR ( Amer) Est GFR (Non-Af Amer) POC Glucose (mg/dL) 129 H 171 H Random Glucose Hemoglobin A1c 5.7 Calcium Total Bilirubin AST ALT Alkaline Phosphatase Total Protein Albumin Globulin Albumin/Globulin Ratio 04/10/17 04/11/17 04/11/17 22:42 07:00 07:00 WBC 7.7 RBC 3.61 Hgb 11.6 L Hct 34.5 L MCV 95.6 MCH 32.1 MCHC 33.6 RDW 12.6 Plt Count 187 MPV 9.5 Gran % 70.2 H Lymph % (Auto) 18.6 L Sol[place] % (Auto) 10.1 H Eos % (Auto) 1.0 L Baso % (Auto) 0.1 Gran # 5.39 Lymph # 1.4 Solano # 0.8 H Eos # 0.1 Baso # 0.01 Sodium 142 Potassium 4.2 Chloride 107 Carbon Dioxide 26 Anion Gap 13 BUN 18 Creatinine 0.9 Est GFR ( Amer) > 60 Est GFR (Non-Af Amer) 60 POC Glucose (mg/dL) 148 H Random Glucose 117 H Hemoglobin A1c Calcium 10.2 Total Bilirubin 0.5 AST 34 ALT 25 Alkaline Phosphatase 51 Total Protein 6.7 Albumin 3.6 Globulin 3.1 Albumin/Globulin Ratio 1.2 04/11/17 07:23 WBC RBC Hgb Hct MCV MCH MCHC RDW Plt Count MPV Gran % Lymph % (Auto) Sol[place] % (Auto) Eos % (Auto) Baso % (Auto) Gran # Lymph # Sol[place] # Eos # Baso # Sodium Potassium Chloride Carbon Dioxide Anion Gap BUN Creatinine Est GFR ( Amer) Est GFR (Non-Af Amer) POC Glucose (mg/dL) 126 H Random Glucose Hemoglobin A1c Calcium Total Bilirubin AST ALT Alkaline Phosphatase Total Protein Albumin Globulin Albumin/Globulin Ratio Assessment & Plan - Assessment and Plan (Free Text) Assessment: Assessment: Infrarenal abdominal aortic aneurysm status post endovascular stent graft Constipation Pancreatic cyst on CT, r/o neoplasm Diabetes mellitus type 2 Hypertension Hypothyroidism History of shingles Plan: Continue MiraLAX daily Will give dose of Dulcolax suppository Request for MRCP with and without contrast with MRI further evaluate pancreatic cyst on heart healthy Continue Pepcid DVT prophylaxis, has SCDs and patient is out of bed Thank you for this consult and for allowing us to participate in your patient's care, we will make further recommendations based upon clinical course. Seen and discussed with Dr. Servin. <Brandi Servin V - Last Filed: 04/12/17 00:47> Meds - Medications Medications: Current Medications Amlodipine Besylate (Norvasc) 5 mg PO DAILY [facility] Last Admin: 04/11/17 09:14 Dose: 5 mg Famotidine (Pepcid) 20 mg PO 1000,2200 [facility] Last Admin: 04/11/17 21:32 Dose: 20 mg Insulin Human Regular (Humulin R Low) 0 units SC ACHS [facility] PRN Reason: Protocol Last Admin: 04/11/17 17:07 Dose: 2 units Levothyroxine Sodium (Synthroid) 75 mcg PO 0600 [facility] Last Admin: 04/11/17 05:13 Dose: 75 mcg Lidocaine (Lidoderm) 1 ea TD DAILY [facility] Last Admin: 04/11/17 09:14 Dose: 1 ea Ondansetron HCl (Zofran Inj) 4 mg IVP Q4H PRN PRN Reason: Nausea/Vomiting Last Admin: 04/10/17 06:06 Dose: 4 mg Oxycodone/Acetaminophen (Percocet 5/325 Mg Tab) 1 tab PO Q6H PRN PRN Reason: Pain, moderate (4-7) Stop: 04/12/17 19:28 Polyethylene Glycol (Miralax) 17 gm PO DAILY [facility] Last Admin: 04/11/17 09:14 Dose: 17 gm Results - Vital Signs Recent Vital Signs: Last Vital Signs Temp 98.7 F 04/11/17 16:30 Pulse 85 04/11/17 16:30 Resp 20 04/11/17 16:30 BP 157/87 H 04/11/17 16:30 Pulse Ox 97 04/11/17 16:30 - Labs Result Diagrams: 04/11/17 07:00 04/11/17 07:00 Labs: Laboratory Results - last 24 hr 04/11/17 04/11/17 04/11/17 07:00 07:00 07:23 WBC 7.7 RBC 3.61 Hgb 11.6 L Hct 34.5 L MCV 95.6 MCH 32.1 MCHC 33.6 RDW 12.6 Plt Count 187 MPV 9.5 Gran % 70.2 H Lymph % (Auto) 18.6 L [place] % (Auto) 10.1 H Eos % (Auto) 1.0 L Baso % (Auto) 0.1 Gran # 5.39 Lymph # 1.4 Solano # 0.8 H Eos # 0.1 Baso # 0.01 Sodium 142 Potassium 4.2 Chloride 107 Carbon Dioxide 26 Anion Gap 13 BUN 18 Creatinine 0.9 Est GFR ( Amer) > 60 Est GFR (Non-Af Amer) 60 POC Glucose (mg/dL) 126 H Random Glucose 117 H Calcium 10.2 Total Bilirubin 0.5 AST 34 ALT 25 Alkaline Phosphatase 51 Total Protein 6.7 Albumin 3.6 Globulin 3.1 Albumin/Globulin Ratio 1.2 04/11/17 04/11/17 04/11/17 11:21 16:46 22:23 WBC RBC Hgb Hct MCV MCH MCHC RDW Plt Count MPV Gran % Lymph % (Auto) [place] % (Auto) Eos % (Auto) Baso % (Auto) Gran # Lymph # Sol[place] # Eos # Baso # Sodium Potassium Chloride Carbon Dioxide Anion Gap BUN Creatinine Est GFR ( Amer) Est GFR (Non-Af Amer) POC Glucose (mg/dL) 182 H 234 H 211 H Random Glucose Calcium Total Bilirubin AST ALT Alkaline Phosphatase Total Protein Albumin Globulin Albumin/Globulin Ratio Attending/Attestation - Attestation I have personally seen and examined this patient.: Yes I have fully participated in the care of the patient.: Yes I have reviewed all pertinent clinical information: Yes Notes (Text): p
--- NOTE | 2017-04-11 20:09 | CON ---
DATE: 04/11/2017 INDICATIONS: Status post abdominal aortic aneurysm endo stenting. HISTORY OF PRESENT ILLNESS: This is an 81-year-old woman admitted on the with a one week history of back and flank pain, found have an infrarenal aortic dissection, which was evaluated by Dr. Minor. She underwent successful endovascular repair on the . She was recovered in the intensive care unit and currently residing on [facility]. She still has mild residual left flank discomfort, but she states that the symptoms are much improved. There is no chest pain, shortness of breath, orthopnea, PND, syncope, presyncope, lightheadedness, dizziness, vertigo, palpations, edema, fever, chills, cough, sputum production, hemoptysis, abdominal pain, nausea, vomiting, diarrhea, constipation, or melena. Prior to the procedure, she did have diarrhea, and there was an episode of vomiting at one point, possibly related to morphine. PAST MEDICAL HISTORY: Notable for diabetes, hyperlipidemia. She was hypertensive pre-procedure. She has a history of sinus surgery and a hysterectomy. She has a history of shingles and basal cell carcinoma with surgery. CT scanning also disclosed a 6 mm pancreatic mass which will be evaluated. There is no history of rheumatic fever, myocardial infraction, angina, congestive heart failure, arrhythmia, stroke, TIA, or gout. MEDICATION: At this time include amlodipine, insulin, Pepcid, Percocet, Synthroid, and Zofran. There are no known medication allergies. SOCIAL HISTORY: She lives at home. She does smokes cigarettes. She denied drinking alcohol significantly. She is ambulatory. FAMILY HISTORY: Noncontributory. REVIEW OF SYSTEMS: A 10-point review of systems, otherwise unremarkable except as noted above. PHYSICAL EXAMINATION: GENERAL: She is a well-developed woman, lying in her bed on 3-R, in no acute distress. VITAL SIGNS: Notable for a pulse of 79. She is afebrile. Blood pressure 145/70, respirations 20, and O2 sat 97% on room air. HEENT: Reveals no neck pain, distention, thyromegaly or carotid bruits. Mucous membranes moist. Conjunctivae pink. Neck is supple. LUNGS: Lung miller are clear. HEART: Revealed normal first and second heart sounds. ABDOMEN: Soft. Bowel sounds are present. No mass, organomegaly, tenderness, rebound, or guarding. EXTREMITIES: Reveals no cyanosis, clubbing, or edema. NEUROLOGIC: She is awake, alert, and oriented. PSYCHIATRIC: Normal as to mood and affect. LABORATORY AND IMAGING: A portable chest x-ray revealed no active disease. EKG revealed regular sinus rhythm, poor R wave progression, mild nonspecific ST wave changes. CT scanning of the abdomen and pelvis are noted. Interventional report is noted. White count normal. Platelet count normal. Hemoglobin 11.6, hematocrit 34.5, PT/INR and PTT unremarkable. Electrolytes, BUN, creatinine, blood sugar, LFTs unremarkable. Total cholesterol 116, triglycerides 142, HDL 34, and LDL 57. Thyroid function is unremarkable. IMPRESSION: Liv Benítez is an 81-year-old woman who presented with back and flank pain, was found to have an infrarenal abdominal aortic aneurysm, which was endo stented by Dr. Minor on the . She was intermittently hypertensive but her blood pressure is currently well controlled with amlodipine. At this time, I agree with current plans. Her blood pressure medication cane be titrated. She can be out of bed and ambulate. There is residual back pain, which will be evaluated and there was a 6 mm pancreatic mass noted on the CT scanning, which will also of the evaluated. I will follow along with you while she is in the hospital. Agustin Sahu MD [facility]
[2017-04-12] MEDS: Levothyroxine 75 MCG TAB PO SCH (05:11)
[2017-04-12 06:27] LABS: BASO # 0.01 K/mm3 (0.0-2.0); BASO % 0.1 % (0.0-3.0); EOS # 0.1 (0.0-0.7); EOS % 1.3 % (1.5-5.0); GRAN # 5.35 (1.4-6.5); GRAN % 62.3 % (50.0-68.0); HEMOGLOBIN 12.3 g/dL (12.0-16.0); LYMPH # 2.2 (1.2-3.4); MEAN CELL VOLUME 95.7 fl (80.0-105.0); MEAN CORPUSCULAR HEMOGLOBIN 32.7 pg (25.0-35.0); MEAN CORPUSCULAR HGB CONC 34.2 g/dl (31.0-37.0); MEAN PLATELET VOLUME 9.5 fl (7.0-11.0); MONO # 0.9 (0.1-0.6); MONO % 10.3 % (1.0-6.0); PLATELET COUNT 203 10^3/uL (120.0-450.0); RBC 3.76 10^6/uL (3.5-6.1); RED CELL DISTRIBUTION WIDTH 12.5 % (11.5-14.5); WHITE BLOOD COUNT 8.6 10^3/ul (4.5-11.0)
[2017-04-12 06:34] LABS: ALB/GLOB RATIO 1.3 (1.1-1.8); ALT/SGPT 33 U/L (7-56); AST/SGOT 40 U/L (15-39); BLOOD UREA NITROGEN 21 mg/dL (7-21); CALCIUM 10.9 mg/dL (8.4-10.5); GFR AFRICAN-AMERICAN > 60; GFR NON-AFRICAN AMERICAN 60
[2017-04-12] MEDS: Insulin Reg-LOW-Coverage SC SCH ×2 (07:57→12:06)
[2017-04-12 08:24] VITALS: BP 157/94; PULSE 79; TEMP 98; O2SAT 99
[2017-04-12] MEDS: POLYETHYLENE GLYCOL 3350 17 GM/Dose PACKET PO SCH (09:07)
[2017-04-12] MEDS: Lidocaine 5% Patch TD SCH (09:07)
--- NOTE | 2017-04-12 13:48 | PN ---
DATE: 04/12/2017 SUBJECTIVE: The patient is seen lying in bed on 3R. She is resting comfortably. She does state she continues to have some right gluteal discomfort. She denies any abdominal pain. CURRENT MEDICATIONS: Include insulin coverage, Lidoderm patch, MiraLax, Norvasc 5 mg daily, Pepcid, Percocet p.r.n., and Synthroid. OBJECTIVE: GENERAL: She is an elderly woman who is comfortable at rest. VITAL SIGNS: Her blood pressure is 156/86 with pulse of 80 and regular, respirations are 16, and she is afebrile. HEENT: No JVD. CHEST: Few scattered rhonchi heard. HEART: Soft systolic murmur left sternal border. ABDOMEN: Soft and nontender with bowel sounds. EXTREMITIES: No edema. DIAGNOSTIC DATA: Potassium 4.1, BUN and creatinine 21 and 0.9, hemoglobin and hematocrit 12.3 and 36.0, white count of 8.6, platelet count 203,000, and glucose is 134. IMPRESSION: 1. Infrarenal abdominal aortic aneurysm, status post endovascular stent graft, clinically stable, flank pain appears more neuropathic in nature. 2. History of hypertension and diabetes. 3. Pancreatic cyst evaluation in progress. RECOMMENDATIONS: Continue the hypertension control as advised. No specific cardiac evaluation is necessary at this point. We will be happy to follow along as needed. Armand Mclain MD
--- NOTE | 2017-04-13 01:27 | DS ---
HISTORY OF PRESENT ILLNESS: The patient is comfortable. She was initially admitted to the hospital because she had a AAA that was repaired endovascularly, she did well. She has no complaints of any headaches or dizziness. The initial back pain that she was have has improved significantly. She is able to ambulate. She was seen by physical therapy and she did not require subacute or transitional care unit rehab. She is able to walk around. She does have assistance at home. According to her, she has no headaches or dizziness. No nausea or vomiting. She was seen by Dr. Sahu yesterday. PHYSICAL EXAMINATION: VITAL SIGNS: Temperature of 98, pulse of 79, blood pressure 157/94, respirations 20 and O2 saturation 99%. GENERAL: The patient is lying in bed, flat, comfortable. HEENT: No oral lesion. Anicteric sclerae. Moist mucosa. NECK: No JVD, adenopathy, or thyromegaly. CARDIOVASCULAR: S1 and S2, regular. No murmurs, rubs, or gallops. LUNGS: Clear to auscultation bilaterally. No wheeze, rales, or rhonchi. ABDOMEN: Bowel sounds are positive, soft, nontender and nondistended. EXTREMITIES: No cyanosis, clubbing or edema. ASSESSMENT: 1. Infrarenal abdominal aortic aneurysm, status post endovascular repair, day #3. 2. Pancreatic cyst on CT. 3. Hypertension. 4. Constipation. 5. Hypothyroidism. 6. Dyslipidemia. 7. Hypercalcemia. PLAN: The patient is currently comfortable. She is on Dulcolax for constipation and MiraLax. She is going to be on Synthroid for her hypothyroidism. The patient is going to be discharge home. She is going to need followup with Dr. Servin and also Dr. Locke to evaluate the renal cyst. She is on Synthroid for her hypothyroidism. She is also on metformin and glyburide for her diabetes type 2. She is on simvastatin for her dyslipidemia. We will place on lisinopril for her hypertension. Stephane Ortiz MD
--- NOTE | 2017-04-14 14:34 | PQF GENQUE ---
04/14/17 Dr. Ortiz, Please see urine culture dated 04/08/17. Any diagnosis pertaining to this result? Thank you. No new diagnosis Clarification of your documentation is requested to better reflect the severity of illness and intensity of treatment of your patient. Indicators present [] Specify: [] [] Specify: [] [] Specify: [] [] Specify: [] Location in the medical record that reflects the above clinical findings: [] Treatment Provided: [] PHYSICIAN'S RESPONSE Based on your medical judgment of the clinical indicators outlined above please clarify the following: [] Practitioner response [] If unable to determine, please check the box, sign and date. Present On Admission (POA) Indicator: [] Present at the time of admission [] Not present at the time of admission [] Clinically Undetermined In responding to this query, please exercise your independent professional judgment. The fact that a question is asked does not imply that any particular answer is desired or expected. Thank you for your clarification on this documentation. If you have any questions please call:[ ] * Thank you, [ ] steel manager [facility]
== END 2017-04-12 13:13 | disposition home or self-care (01) | DRG 269 ==
LOC: ED 12:04 → ERH 17:41 → CCU 23:33 → OBSVTOIN 04-09 15:11 → 3RNO 04-10 18:00
PROVIDERS: ADMIT Internal Medicine Nephrology; ATTEND Internal Medicine Nephrology
PROC: 04V03D6 (ICD-10-PCS; principal; 2017-04-09)
DX: I71.4 Abdominal aortic aneurysm, without rupture (principal); K86.2 Cyst of pancreas; E83.52 Hypercalcemia; N28.1 Cyst of kidney, acquired; E11.9 Type 2 diabetes mellitus without complications; I10 Essential (primary) hypertension; K59.00 Constipation, unspecified; E03.9 Hypothyroidism, unspecified; E78.5 Hyperlipidemia, unspecified; F17.210 Nicotine dependence, cigarettes, uncomplicated; Z79.84 Long term (current) use of oral hypoglycemic drugs; Z79.899 Other long term (current) drug therapy; Z85.828 Personal history of other malignant neoplasm of skin; Z86.11 Personal history of tuberculosis; Z86.19 Personal history of other infectious and parasitic diseases; M25.551 Pain in right hip; R53.81 Other malaise; M79.2 Neuralgia and neuritis, unspecified; E21.3 Hyperparathyroidism, unspecified; R40.2412 Glasgow coma scale score 13-15, at arrival to emergency department

== ENCOUNTER 2017-05-27 10:02 | Day surgery (SDC) | payer MEDICARE, OTHER ==
[2017-05-19 11:29] VITALS: BMI 26.6
[2017-05-27 10:48] LABS: BASO # 0.01 K/mm3 (0.0-2.0); BASO % 0.1 % (0.0-3.0); EOS # 0.1 (0.0-0.7); EOS % 1.3 % (1.5-5.0); GRAN # 4.6 (1.4-6.5); HEMATOCRIT 38.3 % (36.0-48.0); LYMPH # 2.1 (1.2-3.4); LYMPH % 28.9 % (22.0-35.0); MEAN CELL VOLUME 95.8 fl (80.0-105.0); MEAN CORPUSCULAR HEMOGLOBIN 32.3 pg (25.0-35.0); MEAN CORPUSCULAR HGB CONC 33.7 g/dl (31.0-37.0); MEAN PLATELET VOLUME 9.3 fl (7.0-11.0); MONO # 0.4 (0.1-0.6); MONO % 5.7 % (1.0-6.0); RED CELL DISTRIBUTION WIDTH 12.7 % (11.5-14.5); WHITE BLOOD COUNT 7.2 10^3/ul (4.5-11.0)
[2017-05-27 10:53] LABS: INR 0.99 (0.93-1.08)
[2017-05-27 10:54] LABS: ALB/GLOB RATIO 1.3 (1.1-1.8); ALKALINE PHOSPHATASE 59 U/L (38-126); ALT/SGPT 32 U/L (7-56); AMYLASE 109 U/L (35-125); AST/SGOT 45 U/L (14-36); BILIRUBIN,TOTAL 0.4 mg/dL (0.2-1.3); BLOOD UREA NITROGEN 26 mg/dL (7-21); CALCIUM 10.9 mg/dL (8.4-10.5); CARBON DIOXIDE 29 mmol/L (21-33); CHLORIDE 105 mmol/L (95-110); GFR AFRICAN-AMERICAN > 60; GLUCOSE,RANDOM 92 mg/dL (70-110); LIPASE 320 U/L (23-300); POTASSIUM 4.8 mmol/L (3.6-5.0); SODIUM 145 mmol/L (132-148); TOTAL PROTEIN 7.9 g/dL (5.8-8.3)
[2017-05-27] MEDS ORDERED: Propofol 10 mg/ml Inj (20 ML) ONE (12:53)
[2017-05-27] MEDS ORDERED: Phenylephrine 10 mg/ml Inj ONE (12:58)
[2017-05-27] MEDS ORDERED: Neostigmine Methylsulfate 3mg/3ml Syringe IV ONE (14:06)
[2017-05-27] MEDS ORDERED: Sodium Chloride 0.9% 1,000 ML IV SCH (14:30)
[2017-05-27 14:58] VITALS: RESP 16
[2017-05-27 16:49] VITALS: BP 154/81; PULSE 69; TEMP 98.7; O2SAT 94
== END 2017-05-27 16:05 | disposition home or self-care (01) ==
LOC: ENDO 10:02
PROVIDERS: ATTEND Internal Medicine Gastroenterology
DX: D13.1 Benign neoplasm of stomach (principal); K86.2 Cyst of pancreas; E11.9 Type 2 diabetes mellitus without complications; Z79.84 Long term (current) use of oral hypoglycemic drugs
CPT/HCPCS: 36415; 43237; 43251; 80053; 82150; 82977; 83690; 85025; 85610; 85730; 88305; 88342; J2001; J2370; J2405; J2704; J2710; J3010; J7030; J7040

== ENCOUNTER 2017-09-23 09:47 | Emergency (ER) | payer MEDICARE ==
[2017-09-23 09:48] VITALS: BMI 27.1
[2017-09-23 09:59] VITALS: TEMP 98.1
--- NOTE | 2017-09-23 12:05 | ED PDOC ---
Arrival/HPI - General Historian: Patient, Family - History of Present Illness Symptom Onset: Sudden Symptom Course: Unchanged, Intermittent Quality: Stabbing, Burning Severity Level: Moderate Activities at Onset: Rest, Light, Sleeping Context: Sitting, Standing, Walking <Mariah Giordano - Last Filed: 09/23/17 18:25> <Enzo Ibrahim - Last Filed: 09/23/17 18:41> - General Chief Complaint: Back Pain Time Seen by Provider: 09/23/17 10:45 - Critical Care Narrative Critical Care (Text): 09/23/17 11:45 Pt is an 82 yo F who presents to the ED c/o of back pain x 2 days. Pt reports the pain as sharp and burning that starts in the lumbar spine and moves up tot he neck. PMH includes shingles and and post herpetic neuralgia 1-2 times per year. Pain is described as sharp, stabbing as well as pins and needles in the neck and general back, bilateral. Daughter is at bedside and added that her mother has been reading with her head down for extended periods thus leading to the neck pain. Pt was scheduled to get an abdominal polyp removed today but cancelled due to the back pain. Denies ALBERTO, nausea, vomiting, diarrhea, fever, chills, syncope, trauma. (Mariah Giordano) Past Medical History - Provider Review Nursing Documentation Reviewed: Yes - Travel History Have you recently traveled outside [place] w/in the past 3 mons?: Yes - Infectious Disease Hx of Infectious Diseases: None - Tetanus Immunization Tetanus Immunization: Unknown - Cardiac Hx Pacemaker: No - Pulmonary Hx Respiratory Disorders: Yes Hx Tuberculosis: Yes (62 years ago) - Neurological Hx Paralysis: No - HEENT Hx HEENT Disorder: Yes (pain in left ear) - Renal Hx Renal Disorder: No - Endocrine/Metabolic Hx Diabetes Mellitus Type 2: Yes Hx Hypothyroidism: Yes - Hematological/Oncological Hx Blood Transfusions: No - Integumentary Hx Dermatological Disorder: Yes (lesion on nose removed, unsure if cancerous) - Musculoskeletal/Rheumatological Hx Musculoskeletal Disorders: No - Gastrointestinal Hx Gastrointestinal Disorders: No - Genitourinary/Gynecological Hx Genitourinary Disorders: No - Psychiatric Hx Emotional Abuse: No Hx Physical Abuse: No Hx Substance Use: No - Past Surgical History Past Surgical History: No Previous - Surgical History Other/Comment: Skin CA removal - Anesthesia Hx Anesthesia Reactions: No Hx Malignant Hyperthermia: No - Suicidal Assessment Feels Threatened In Home Enviroment: No <Mariah Giordano - Last Filed: 09/23/17 18:25> Family/Social History - Physician Review Nursing Documentation Reviewed: Yes Family/Social History: Unknown Family HX, Hypertension Smoking Status: Never Smoked Hx Alcohol Use: No Hx Substance Use: No Hx Substance Use Treatment: No <Mariah Giordano - Last Filed: 09/23/17 18:25> Allergies/Home Meds <Mariah Giordano - Last Filed: 09/23/17 18:25> <Nolberto Ibrahimoper - Last Filed: 09/23/17 18:41> Allergies/Adverse Reactions: Allergies No Known Allergies Allergy (Verified 09/23/17 09:59) Home Medications: Home Meds Medication Instructions Recorded Confirmed Levothyroxine Sodium 0.075 mg PO DAILY 07/29/12 09/23/17 Glimepiride 1 mg PO DAILY 02/15/17 09/23/17 Metformin HCl [Glucophage] 1,000 mg PO BID 02/15/17 09/23/17 Simvastatin 40 mg PO DAILY 02/15/17 09/23/17 Fenofibrate [Fenofibrate] 54 mg PO DAILY 09/16/17 09/23/17 Review of Systems - Review of Systems Constitutional: Normal Eyes: Normal Respiratory: Normal Cardiovascular: Normal Gastrointestinal: Normal Musculoskeletal: Arthralgias, Back Pain, Neck Pain Skin: Normal Neurological: Normal Psychiatric: Normal <Mariah Giordano - Last Filed: 09/23/17 18:25> Physical Exam Vital Signs Reviewed: Yes Temperature: Afebrile Blood Pressure: Hypertensive Pulse: Regular Respiratory Rate: Normal Appearance: Positive for: Non-Toxic, Comfortable Pain Distress: Mild Mental Status: Positive for: Alert and Oriented X 3 - Systems Exam Head: Present: Atraumatic, Normocephalic Pupils: Present: PERRL Conjunctiva: Present: Normal Respiratory/Chest: Present: Clear to Auscultation, Good Air Exchange. No: Respiratory Distress, Accessory Muscle Use Cardiovascular: Present: Regular Rate and Rhythm, Normal S1, S2. No: Murmurs Abdomen: Present: Normal Bowel Sounds. No: Tenderness, Distention, Peritoneal Signs Upper Extremity: Present: Normal Inspection, Normal ROM, NORMAL PULSES. No: Cyanosis, Edema Lower Extremity: Present: Normal Inspection, NORMAL PULSES, Normal ROM. No: Edema Neurological: Present: Speech Normal, Motor Func Grossly Intact, Normal Sensory Function, Norm Deep Tendon Reflexes Skin: Present: Warm, Dry, Normal Color. No: Rashes Psychiatric: Present: Alert, Oriented x 3, Normal Insight, Normal Concentration <Mariah Giordano - Last Filed: 09/23/17 18:25> Vital Signs Temp Pulse Resp BP Pulse Ox 09/23/17 15:45 82 16 159/76 H 99 09/23/17 14:37 98.1 F 83 16 159/73 H 98 09/23/17 09:56 98.1 F 96 H 17 180/86 H 98 09/23/17 09:48 98.1 F 96 H 17 180/86 H 98 Medical Decision Making <Mariah Giordano - Last Filed: 09/23/17 18:25> <Enzo Ibrahim - Last Filed: 09/23/17 18:41> ED Course and Treatment: 09/23/17 12:10 Pt is an 82 yo F who presents to the ED c/o of back pain x 2 days. Pt reports the pain as sharp and burning that starts in the lumbar spine and moves up tot he neck.On exam, pt exhibits good ROM cervical to lumbar spine with very mild point tenderness along the spine. No meningeal signs, and sensation is intact throughput. Plan: Cervical, thoracic and lumbar views ordered to r/o fracture/dislocation Tylenol 650 mg po once for pain Discussed w pt need to follow up with Primary if pain continues; more than likely is a muscle strain of the back due to posture Pt reassessed and dispo'd home with Tramadol 50 mg BID x 5 days; advised pt of possible side effects and cautions Pt was stable and ambulated well out of the ED. (Mariah Giordano) - Lab Interpretations Lab Results: 09/23/17 11:52 09/23/17 11:52 Lab Results 09/23/17 11:52: Urine Color Yellow, Urine Appearance Clear, Urine pH 6.0, Ur Specific [place] >= 1.030, Urine Protein Trace H, Urine Glucose (UA) Negative, Urine Ketones Trace H, Urine Blood Negative, Urine Nitrate Negative, Urine Bilirubin Small H, Urine Urobilinogen 0.2, Ur Leukocyte Esterase Trace H, Urine RBC 0 - 2, Urine WBC 5 - 10, Ur Epithelial Cells 6 - 8, Amorphous Sediment Few, Urine Bacteria Many, Coarse Granular Casts Trace H, Urine Other Uyeast 09/23/17 11:52: Sodium 144, Potassium 4.8, Chloride 108 H, Carbon Dioxide 25, Anion Gap 17, BUN 26 H, Creatinine 0.9, Est GFR ( Amer) > 60, Est GFR ( Non-Af Amer) 60, Random Glucose 104, Calcium 11.4 H, Total Bilirubin 0.4, AST 44 H, ALT 42, Alkaline Phosphatase 60, Total Protein 7.9, Albumin 4.5, Globulin 3.4, Albumin/Globulin Ratio 1.3 09/23/17 11:52: WBC 6.7, RBC 4.46, Hgb 14.2, Hct 42.9, MCV 96.2, MCH 31.8, MCHC 33.1, RDW 13.1, Plt Count 259, MPV 9.8 - RAD Interpretation Radiology Orders: 09/23/17 11:40 CERVICAL SPINE AP & LATERAL [RAD] Stat THORACIC SPINE [DORSAL (THORACIC) SPINE] [RAD] Stat 09/23/17 11:41 LS SPINE AP/LAT [RAD] Stat - Medication Orders Current Medication Orders: Discontinued Medications Acetaminophen (Tylenol 325mg Tab) 650 mg PO STAT STA Stop: 09/23/17 14:13 Last Admin: 09/23/17 14:23 Dose: 650 mg MAR Pain/Vitals Document 09/23/17 14:23 MS (Rec: 09/23/17 14:25 [facility] [place]-[id number]) Pain Reassessment Is This A Pain ReAssessment? No Sleep Is patient sleeping during reassessment? No Presence of Pain Presence of Pain Yes Pain Scale Used Pain Scale Used Numeric Location Upper or Lower Lower Pain Location Body Site Back Description Constant Intensity 7 Scale Used Numeric Pain Behavior Guarding Grasping Site Facial Grimacing - PA / BUCKET TURNER / Resident Statement MD/DO has examined the patient and agrees with the treatment plan. <Enzo Ibrahim - Last Filed: 09/23/17 18:41> Disposition/Present on Arrival - Present on Arrival Any Indicators Present on Arrival: No History of DVT/PE: No History of Uncontrolled Diabetes: No Urinary Catheter: No History of Decub. Ulcer: No History Surgical Site Infection Following: None - Disposition Have Diagnosis and Disposition been Completed?: Yes Disposition Time: 14:12 Patient Plan: Discharge <Mariah Giordano - Last Filed: 09/23/17 18:25> <Enzo Ibrahim - Last Filed: 09/23/17 18:41> - Disposition Diagnosis: Muscle ache, Back pain Disposition: HOME/ ROUTINE Condition: STABLE Additional Instructions: If you experience worsening of symptoms such as high fever, shortness of breath , chest pain or bleeding, return to the ED for further evaluation. Please follow the handouts provided and have a speedy recovery. Follow up with your doctor in the next few days. Prescriptions: traMADol [Ultram] 50 mg PO BID #10 tab Referrals: Samir Locke MD [Primary Care Provider] - Follow up with primary Forms: [employer] (Cameroonian)
[2017-09-23 12:13] LABS: HEMOGLOBIN 14.2 g/dL (12.0-16.0); MEAN CELL VOLUME 96.2 fl (80.0-105.0); MEAN CORPUSCULAR HEMOGLOBIN 31.8 pg (25.0-35.0); MEAN CORPUSCULAR HGB CONC 33.1 g/dl (31.0-37.0); MEAN PLATELET VOLUME 9.8 fl (7.0-11.0); RBC 4.46 10^6/uL (3.5-6.1); RED CELL DISTRIBUTION WIDTH 13.1 % (11.5-14.5); WHITE BLOOD COUNT 6.7 10^3/ul (4.5-11.0)
[2017-09-23 12:26] LABS: ALB/GLOB RATIO 1.3 (1.1-1.8); ALBUMIN 4.5 g/dL (3.0-4.8); ALT/SGPT 42 U/L (7-56); AST/SGOT 44 U/L (14-36); BLOOD UREA NITROGEN 26 mg/dL (7-21); CALCIUM 11.4 mg/dL (8.4-10.5); GFR AFRICAN-AMERICAN > 60; GFR NON-AFRICAN AMERICAN 60
[2017-09-23 12:39] LABS: URINE BILIRUBIN SMALL (NEGATIVE); URINE BLOOD NEGATIVE (NEGATIVE); URINE GLUCOSE (UA) NEGATIVE (NEGATIVE); URINE LEUKOCYTE ESTERASE TRACE Leu/uL (NEGATIVE); URINE NITRATE NEGATIVE (NEGATIVE); URINE PROTEIN TRACE mg/dL (<30 mg/dL); URINE UROBILINOGEN 0.2 E.U./dL (<1 E.U./dL)
[2017-09-23 12:40] LABS: URINE APPEARANCE CLEAR (CLEAR); URINE COLOR YELLOW (YELLOW)
[2017-09-23 12:50] LABS: URINE RBC 0 - 2 /hpf (0-2)
[2017-09-23 12:51] LABS: URINE AMORPHOUS SEDIMENT FEW; URINE BACTERIA MANY (NEG); URINE COARSE GRANULAR CAST TRACE /hpf (0-2)
--- NOTE | 2017-09-23 13:18 | RAD ---
PROCEDURE: Radiographs of the Lumbar Spine. HISTORY: back pain COMPARISON: No prior. FINDINGS: BONES: Vertebral bodies maintained in height. Normal alignment maintained. Normal alignment. No listhesis. No fracture. DISC SPACES: Unremarkable. OTHER FINDINGS: Aortoiliac stent identified. IMPRESSION: Unremarkable radiographs of the lumbar spine.
--- NOTE | 2017-09-23 14:05 | RAD ---
HISTORY: back pain COMPARISON: No prior. FINDINGS: BONES: Alignment maintained. No fracture. DISC SPACES: Normal. SOFT TISSUES: Normal. OTHER FINDINGS: None. IMPRESSION: Normal radiographs of the thoracic spine.
--- NOTE | 2017-09-23 14:06 | RAD ---
PROCEDURE: Cervical Spine Radiographs. HISTORY: Pain. COMPARISON: None. FINDINGS: BONES: Technically limited examination. Upper cervical spine is obscured by patient's mandible in the frontal projection. The vertebral bodies are maintained in height. Normal alignment is maintained. DISC SPACES: Normal. SOFT TISSUES: Normal. No prevertebral soft tissue swelling. OTHER FINDINGS: None. IMPRESSION: Technically limited examination. No evidence of fracture or degenerative disc disease.
[2017-09-23 14:38] VITALS: RESP 16
[2017-09-23 15:47] VITALS: BP 159/76; PULSE 82; O2SAT 99
== END 2017-09-23 15:00 | disposition home or self-care (01) ==
LOC: ED 09:47
DX: M54.9 Dorsalgia, unspecified (principal); R52 Pain, unspecified; E11.9 Type 2 diabetes mellitus without complications; E03.9 Hypothyroidism, unspecified

== ENCOUNTER 2017-10-28 08:27 | Day surgery (SDC) | payer MEDICARE ==
[2017-09-16 11:42] VITALS: BMI 27.1
[2017-10-28] MEDS ORDERED: Methylene Blue 10 mg/mL(10ml) IV ONE (11:47)
[2017-10-28] MEDS ORDERED: Propofol 10 mg/ml Inj (20 ML) ONE ×2 (12:26→12:36)
[2017-10-28 13:55] VITALS: PULSE 70
[2017-10-28] MEDS ORDERED: Lactated Ringer's 1,000 ML IV SCH (14:00)
[2017-10-28 14:19] VITALS: BP 154/82; RESP 15; TEMP 97.6; O2SAT 96
== END 2017-10-28 15:10 | disposition home or self-care (01) ==
LOC: ENDO 08:27
PROVIDERS: ATTEND Internal Medicine Gastroenterology
DX: D13.1 Benign neoplasm of stomach (principal); K31.7 Polyp of stomach and duodenum; K29.50 Unspecified chronic gastritis without bleeding
CPT/HCPCS: 43236; 43251; 82948; 88305; 88342; J2001; J2704; J3010; J7040; J7120

== ENCOUNTER 2018-03-03 10:53 | Day surgery (SDC) | payer MEDICARE, OTHER ==
[2018-03-03 11:31] LABS: BASO # 0.01 K/mm3 (0.0-2.0); BASO % 0.1 % (0.0-3.0); EOS # 0.1 (0.0-0.7); EOS % 1.1 % (1.5-5.0); GRAN # 4.74 (1.4-6.5); GRAN % 63.6 % (50.0-68.0); HEMOGLOBIN 12.8 g/dL (12.0-16.0); LYMPH # 2.1 (1.2-3.4); LYMPH % 28.1 % (22.0-35.0); MEAN CELL VOLUME 92.8 fl (80.0-105.0); MEAN CORPUSCULAR HEMOGLOBIN 31.8 pg (25.0-35.0); MEAN CORPUSCULAR HGB CONC 34.2 g/dl (31.0-37.0); MEAN PLATELET VOLUME 9.6 fl (7.0-11.0); MONO # 0.5 (0.1-0.6); MONO % 7.1 % (1.0-6.0); RBC 4.03 10^6/uL (3.5-6.1); RED CELL DISTRIBUTION WIDTH 12.5 % (11.5-14.5); WHITE BLOOD COUNT 7.5 10^3/ul (4.5-11.0)
[2018-03-03 11:39] LABS: ALB/GLOB RATIO 1.4 (1.1-1.8); ALBUMIN 4.5 g/dL (3.0-4.8); ALT/SGPT 47 U/L (7-56); AMYLASE 91 U/L (35-125); AST/SGOT 51 U/L (14-36); BLOOD UREA NITROGEN 23 mg/dL (7-21); CALCIUM 10.3 mg/dL (8.4-10.5); GAMMA GLUTAMYL TRANSPEPTIDASE 26 U/L (8-78); GFR AFRICAN-AMERICAN > 60; GFR NON-AFRICAN AMERICAN 60; LIPASE 264 U/L (23-300)
[2018-03-03 11:49] LABS: INR 0.97 (0.93-1.08); PARTIAL THROMBOPLASTIN TIME 29.1 Seconds (25.1-36.5); PROTHROMBIN TIME 11.1 SECONDS (9.4-12.5)
[2018-03-03] MEDS ORDERED: Propofol 10 mg/ml Inj (20 ML) ONE ×3 (13:07→14:23)
[2018-03-03] MEDS ORDERED: Etomidate 20 mg/10ml Inj IV ONE (13:08)
[2018-03-03] MEDS ORDERED: Sodium Chloride 0.9% 1,000 ML IV SCH (14:45)
[2018-03-03 14:57] VITALS: TEMP 98.1
[2018-03-03 15:29] VITALS: BP 169/78; PULSE 64; RESP 16; O2SAT 96
== END 2018-03-03 16:09 | disposition home or self-care (01) ==
LOC: ENDO 10:53
PROVIDERS: ATTEND Internal Medicine Gastroenterology
DX: C16.2 Malignant neoplasm of body of stomach (principal); K31.7 Polyp of stomach and duodenum; K86.2 Cyst of pancreas
CPT/HCPCS: 36415; 43237; 43254; 80053; 82150; 82977; 83690; 85025; 85610; 85730; 88305; 88342; J2704; J3010; J7030; J7040

== ENCOUNTER 2018-11-16 11:37 | Emergency (ER) | payer MEDICARE ==
[2018-11-16 11:38] VITALS: BMI 27.1
[2018-11-16] MEDS ORDERED: DiphenhydrAMINE 50 mg/ml Inj IVP STA (12:17)
[2018-11-16] MEDS ORDERED: Sodium Chloride 0.9% 1,000 ML IV STA (12:17)
--- NOTE | 2018-11-16 12:39 | ED PDOC ---
Arrival/HPI - General Chief Complaint: Headache Time Seen by Provider: 11/16/18 11:39 Historian: Patient - History of Present Illness Narrative History of Present Illness (Text): 11/16/18 12:16 83 year old female, with past medical history of diabetes and shingles, presents to the ED for evaluation of posterior headache and neck pain since 2 weeks. Patient reports mechanical trip and fell last week but denies any head injury or loss of consciousness at the time. In contrast to triage comments, patient denies any dizziness or lightheadedness but reports feeling tired and decreased energy. Patient reports taking 2 Tylenol at home with mild improvement to symptoms. Patient denies any other associated somatic complaints. Patient denies any fevers, chills, vision changes, dizziness, chest pain, shortness of breath, dyspnea on exertion, cough, abdominal pain, nausea, vomiting, diarrhea, back pain, or any other complaints. Time/Duration: > week Symptom Onset: Gradual Symptom Course: Unchanged Activities at Onset: Light Context: Home Past Medical History - Provider Review Nursing Documentation Reviewed: Yes - Infectious Disease Hx of Infectious Diseases: None - Tetanus Immunization Tetanus Immunization: Unknown - Cardiac Hx Pacemaker: No - Pulmonary Hx Respiratory Disorders: Yes Hx Tuberculosis: Yes (62 years ago) - Neurological Hx Paralysis: No - HEENT Hx HEENT Disorder: Yes (pain in left ear) - Renal Hx Renal Disorder: No - Endocrine/Metabolic Hx Diabetes Mellitus Type 2: Yes Hx Hypothyroidism: Yes - Hematological/Oncological Hx Blood Transfusions: No - Integumentary Hx Dermatological Disorder: Yes (lesion on nose removed, unsure if cancerous) - Musculoskeletal/Rheumatological Hx Musculoskeletal Disorders: No - Gastrointestinal Hx Gastrointestinal Disorders: No - Genitourinary/Gynecological Hx Genitourinary Disorders: No - Psychiatric Hx Emotional Abuse: No Hx Physical Abuse: No Hx Substance Use: No - Past Surgical History Past Surgical History: No Previous - Surgical History Other/Comment: Skin CA removal - Anesthesia Hx Anesthesia: Yes Hx Anesthesia Reactions: No Hx Malignant Hyperthermia: No - Suicidal Assessment Feels Threatened In Home Enviroment: No Family/Social History - Physician Review Nursing Documentation Reviewed: Yes Family/Social History: Unknown Family HX Smoking Status: Never Smoked Hx Alcohol Use: No Hx Substance Use: No Hx Substance Use Treatment: No Allergies/Home Meds Allergies/Adverse Reactions: Allergies No Known Allergies Allergy (Verified 09/23/17 09:59) Home Medications: Home Meds Medication Instructions Recorded Confirmed Levothyroxine Sodium 0.075 mg PO DAILY 07/29/12 03/03/18 Metformin HCl [Glucophage] 1,000 mg PO BID 02/15/17 03/03/18 Simvastatin 40 mg PO DAILY 02/15/17 03/03/18 Fenofibrate 54 mg PO DAILY 09/16/17 03/03/18 Omeprazole 20 mg PO DAILY 10/28/17 03/03/18 Cyanocobalamin [Vitamin B12 1000 1,000 mcg IM Q30D 02/24/18 03/03/18 mcg/ml Inj] Review of Systems - Review of Systems Constitutional: absent: Fevers Eyes: absent: Vision Changes Respiratory: absent: SOB, Cough Gastrointestinal: absent: Abdominal Pain, Constipation, Diarrhea, Nausea, Vomiting Genitourinary Female: absent: Dysuria, Urine Output Changes Musculoskeletal: Neck Pain. absent: Back Pain Neurological: Headache. absent: Dizziness, Focal Weakness Endocrine: absent: Diaphoresis Psychiatric: absent: Anxiety Physical Exam Vital Signs Reviewed: Yes Vital Signs Temp Pulse Resp BP Pulse Ox 11/16/18 11:38 98.1 F 88 18 202/118 H 98 Temperature: Afebrile Blood Pressure: Hypertensive Pulse: Regular Respiratory Rate: Normal Appearance: Positive for: Well-Appearing, Non-Toxic, Comfortable Pain Distress: None Mental Status: Positive for: Alert and Oriented X 3 - Systems Exam Head: Present: Atraumatic, Normocephalic Pupils: Present: PERRL Extroacular Muscles: Present: EOMI Conjunctiva: Present: Normal Mouth: Present: Moist Mucous Membranes Neck: Present: Normal Range of Motion. No: MIDLINE TENDERNESS, Paraspinal Tenderness Respiratory/Chest: Present: Clear to Auscultation, Good Air Exchange. No: Respiratory Distress, Accessory Muscle Use Cardiovascular: Present: Regular Rate and Rhythm, Normal S1, S2. No: Murmurs Abdomen: No: Tenderness, Distention, Peritoneal Signs Back: Present: Normal Inspection. No: Midline Tenderness, Paraspinal Tenderness Upper Extremity: Present: Normal Inspection. No: Cyanosis, Edema Lower Extremity: Present: Normal Inspection. No: Edema Neurological: Present: GCS=15, CN II-XII Intact, Speech Normal Skin: Present: Warm, Dry Psychiatric: Present: Alert, Oriented x 3, Normal Insight, Normal Concentration Medical Decision Making ED Course and Treatment: 11/16/18 12:16 Impression: 83 year old female presents to the ED for evaluation of headache and neck pain. Plan: -- CT of Cervical Spine -- CT of Head -- Labs -- EKG -- CXR -- Benadryl -- Decadron -- Reglan -- Tylenol -- Reassess and disposition Prior Visits: Notes and results from previous visits were reviewed. Progress Notes: 11/16/18 13:01 CXR reviewed by radiologist, shows no active disease. 11/16/18 13:01 EKG reviewed, shows NSR at 79 bpm, LVH, isolated T wave inversion in Lead III. 11/16/18 13:10 On reassessment, patient's blood pressure improved 25% by MAP with treatment for headache. 11/16/18 13:55 CT of head reviewed by radiologist, shows no acute intracranial findings. CT of cervical spine reviewed by radiologist, shows undermarkable CT. 11/16/18 14:02 Headache resolved. Labs grossly normal. Instructed on importance of following up with Dr. Locke in 2 days for repeat BP check and further evaluation of headaches. Call placed to Dr. Locke to make him aware that patient was in ER. - RAD Interpretation Radiology Orders: 11/16/18 12:16 CERVICAL SPINE W/O CONTRAST [CT] Stat HEAD W/O CONTRAST [CT] Stat 11/16/18 12:19 CHEST PORTABLE [RAD] Stat Chemical Laboratory Scientist: Radiologist - EKG Interpretation Interpreted by ED Physician: Yes Type: 12 lead EKG - Medication Orders Current Medication Orders: Discontinued Medications Acetaminophen (Tylenol 325mg Tab) 650 mg PO STAT STA Stop: 11/16/18 12:18 Last Admin: 11/16/18 12:37 Dose: 650 mg MAR Pain/Vitals Document 11/16/18 12:37 MA (Rec: 11/16/18 12:38 MA [id number]) Pain Reassessment Is This A Pain ReAssessment? Yes Sleep Is patient sleeping during reassessment? No Presence of Pain Presence of Pain Yes Pain Scale Used Protocol: PSCALES Pain Scale Used Numeric Location Pain Location Body Project Associate Description Constant Intensity 4 Scale Used Numeric Pain Behavior Grasping Site Rubbing Site Aggravating Factors Changing Position Dexamethasone (Decadron Inj) 10 mg IVP STAT STA Stop: 03/18/19 12:18 Last Admin: 11/16/18 12:37 Dose: 10 mg IVP Administration Document 11/16/18 12:37 MA (Rec: 11/16/18 12:37 [id number] Charges for Administration # of IVP Administrations 1 Diphenhydramine HCl (Benadryl) 25 mg IVP STAT STA Stop: 11/16/18 12:18 Last Admin: 11/16/18 12:36 Dose: 25 mg IVP Administration Document 11/16/18 12:36 MA (Rec: 11/16/18 12:36 MA [id number]) Charges for Administration # of IVP Administrations 1 Metoclopramide HCl (Reglan) 10 mg IVP STAT STA Stop: 11/16/18 12:18 Last Admin: 11/16/18 12:36 Dose: 10 mg IVP Administration Document 11/16/18 12:36 MA (Rec: 11/16/18 12:36 [id number] Charges for Administration # of IVP Administrations 1 - Scribe Statement The provider has reviewed the documentation as recorded by the Scribe Brayan Taylor. All medical record entries made by the Scribe were at my direction and personally dictated by me. I have reviewed the chart and agree that the record accurately reflects my personal performance of the history, physical exam, medical decision making, and the department course for this patient. I have also personally directed, reviewed, and agree with the discharge instructions and disposition. Disposition/Present on Arrival - Present on Arrival Any Indicators Present on Arrival: No History of DVT/PE: No History of Uncontrolled Diabetes: No Urinary Catheter: No History of Decub. Ulcer: No History Surgical Site Infection Following: None - Disposition Have Diagnosis and Disposition been Completed?: Yes Diagnosis: Hypertension, Headache Disposition: HOME/ ROUTINE Disposition Time: 13:12 Patient Plan: Discharge Patient Problems: Current Active Problems Problem Status Onset Hypertension Acute Headache Acute Condition: GOOD Discharge Instructions (ExitCare): Tension Headache, Controlling Your Blood Pressure Through Lifestyle Additional Instructions: Follow-up with Dr. Locke within 2 days for evaluation and recheck of BP. Return immediately to ED if condition worsens. Forms: [employer] (Libyan)
[2018-11-16 12:43] LABS: BASO # 0.02 K/mm3 (0.0-2.0); BASO % 0.3 % (0.0-3.0); EOS # 0.1 (0.0-0.7); HEMOGLOBIN 12.9 g/dL (12.0-16.0); LYMPH % 25.2 % (22.0-35.0); MEAN CELL VOLUME 96.5 fl (80.0-105.0); MEAN CORPUSCULAR HGB CONC 33.2 g/dl (31.0-37.0); MEAN PLATELET VOLUME 9.7 fl (7.0-11.0); MONO # 0.5 (0.1-0.6); MONO % 6.2 % (1.0-6.0); RBC 4.03 10^6/uL (3.5-6.1); RED CELL DISTRIBUTION WIDTH 12.5 % (11.5-14.5); WHITE BLOOD COUNT 7.8 10^3/uL (4.5-11.0)
[2018-11-16 12:48] LABS: ALB/GLOB RATIO 1.2 (1.1-1.8); ALBUMIN 4.5 g/dL (3.0-4.8); ALT/SGPT 16 U/L (7-56); AST/SGOT 38 U/L (14-36); BLOOD UREA NITROGEN 29 mg/dL (7-21); CALCIUM 11.4 mg/dL (8.4-10.5); GFR NON-AFRICAN AMERICAN 53
--- NOTE | 2018-11-16 12:54 | RAD ---
Date of service: 11/16/2018 HISTORY: htn COMPARISON: 04/08/2017 FINDINGS: LUNGS: No active pulmonary disease. PLEURA: No significant pleural effusion identified, no pneumothorax apparent. CARDIOVASCULAR: Aortic calcification Normal cardiac size. No pulmonary vascular congestion. OSSEOUS STRUCTURES: No significant abnormalities. VISUALIZED UPPER ABDOMEN: Normal. OTHER FINDINGS: None. IMPRESSION: No active disease.
[2018-11-16 12:59] LABS: TROPONIN I < 0.01 ng/mL
--- NOTE | 2018-11-16 13:43 | CT ---
Date of service: 11/16/2018 PROCEDURE: CT HEAD WITHOUT CONTRAST. HISTORY: headache COMPARISON: 01/08/2013 TECHNIQUE: Axial computed tomography images were obtained through the head/brain without intravenous contrast. Radiation dose: Total exam DLP = 938.06 mGy-cm. This CT exam was performed using one or more of the following dose reduction techniques: Automated exposure control, adjustment of the mA and/or kV according to patient size, and/or use of iterative reconstruction technique. FINDINGS: HEMORRHAGE: No intracranial hemorrhage. BRAIN: No mass effect or edema. No atrophy or chronic microvascular ischemic changes. VENTRICLES: Unremarkable. No hydrocephalus. CALVARIUM: Unremarkable. PARANASAL SINUSES: Unremarkable as visualized. No significant inflammatory changes. MASTOID AIR CELLS: Unremarkable as visualized. No inflammatory changes. OTHER FINDINGS: None. IMPRESSION: No acute intracranial findings
--- NOTE | 2018-11-16 13:45 | CT ---
Date of service: 11/16/2018 PROCEDURE: CT Cervical Spine without contrast HISTORY: neck pain and headache COMPARISON: None available. TECHNIQUE: Axial computed tomography images were obtained of the cervical spine without the use of intravenous contrast. Coronal and sagittal reformatted images were created and reviewed. Radiation dose: Total exam DLP = 420.26 mGy-cm. This CT exam was performed using one or more of the following dose reduction techniques: Automated exposure control, adjustment of the mA and/or kV according to patient size, and/or use of iterative reconstruction technique. FINDINGS: VERTEBRAE: No fracture. Normal alignment. No destructive bony lesion. DISCS/SPINAL CANAL/NEURAL FORAMINA: No significant central canal or neural foraminal stenosis. Discs heights are grossly preserved. PARASPINAL SOFT TISSUES: Unremarkable. OTHER FINDINGS: None. IMPRESSION: Unremarkable CT of the cervical spine.
[2018-11-16 14:02] VITALS: RESP 18
[2018-11-16 14:40] VITALS: BP 156/75; PULSE 78; TEMP 98.4; O2SAT 100
--- NOTE | 2018-11-16 22:40 | CARD ---
APPROVED REPORT Date of service: 11/16/2018 EKG Measurement Heart [id number] <Conclusion> Normal sinus rhythm Left ventricular hypertrophy with repolarization abnormality Abnormal ECG
== END 2018-11-16 14:38 | disposition home or self-care (01) ==
LOC: ED 11:37
DX: I10 Essential (primary) hypertension (principal); R51 Headache; E11.9 Type 2 diabetes mellitus without complications
CPT/HCPCS: 70450; 71045; 72125; 80053; 84484; 85025; 93005; 96374; 96375; 99284; J1100; J1200; J2765

== ENCOUNTER 2018-12-18 07:35 | Day surgery (SDC) | payer MEDICARE ==
[2018-12-14 15:07] VITALS: BMI 24.0
[2018-12-18] MEDS ORDERED: Propofol 10 mg/ml Inj (20 ML) ONE ×2 (09:13→09:46)
[2018-12-18] MEDS ORDERED: Sodium Chloride 0.9% 1,000 ML IV SCH (10:45)
[2018-12-18 10:53] VITALS: O2SAT 97
[2018-12-18 11:12] VITALS: PULSE 71; RESP 18; TEMP 97.5
[2018-12-18 11:31] VITALS: BP 130/62
== END 2018-12-18 11:41 | disposition home or self-care (01) ==
LOC: ENDO 07:35
PROVIDERS: ATTEND Internal Medicine Gastroenterology
DX: C16.9 Malignant neoplasm of stomach, unspecified (principal); K31.7 Polyp of stomach and duodenum; D12.2 Benign neoplasm of ascending colon; K63.5 Polyp of colon; K57.30 Diverticulosis of large intestine without perforation or abscess without bleeding; K64.8 Other hemorrhoids; E11.9 Type 2 diabetes mellitus without complications; Z79.84 Long term (current) use of oral hypoglycemic drugs; Z86.010 Personal history of colon polyps
CPT/HCPCS: 43236; 43251; 45385; 82948; 88305; 88342; J2001; J2704; J3010; J7030

== ENCOUNTER 2019-02-01 15:46 | Observation (INO) | payer MEDICARE, OTHER ==
[2019-02-01 16:03] VITALS: O2SAT 99
[2019-02-01 16:42] LABS: BASO # 0.02 K/mm3 (0.0-2.0); BASO % 0.2 % (0.0-3.0); EOS # 0.1 (0.0-0.7); EOS % 1.1 % (1.5-5.0); HEMOGLOBIN 12.4 g/dL (12.0-16.0); LYMPH # 2.7 (1.2-3.4); LYMPH % 29.1 % (22.0-35.0); MEAN CELL VOLUME 95.9 fl (80.0-105.0); MEAN CORPUSCULAR HEMOGLOBIN 31.6 pg (25.0-35.0); MEAN PLATELET VOLUME 9.3 fl (7.0-11.0); MONO # 0.7 (0.1-0.6); MONO % 7.7 % (1.0-6.0); RBC 3.92 10^6/uL (3.5-6.1); RED CELL DISTRIBUTION WIDTH 13.1 % (11.5-14.5); WHITE BLOOD COUNT 9.1 10^3/uL (4.5-11.0)
--- NOTE | 2019-02-01 16:43 | ED PDOC ---
Arrival/HPI - General Chief Complaint: Trauma Time Seen by Provider: 02/01/19 15:47 Historian: Patient - History of Present Illness Narrative History of Present Illness (Text): 02/01/19 16:40 Patient is a 83 year old feamle whose past medical history includes hypertension, who presents to the ED after falling earlier today while shopping hitting her head, specifically lips and teeth. Patient reports that she is unable to describe the reason for her fall, but states that she felt dizzy and then fell down. Reports ?LOC. Patient is complaining of L hand pain. Patient denies fevers, chills, cough, shortness of breath, chest pain, abdominal pain, nausea, vomiting, diarrhea, dysuria, headache, or any other complaint. Time/Duration: Prior to Arrival Symptom Onset: Sudden Activities at Onset: Light Context: Walking Past Medical History - Provider Review Nursing Documentation Reviewed: Yes Primary Care Provider: Samir Locke - Infectious Disease Hx of Infectious Diseases: None - Tetanus Immunization Tetanus Immunization: Unknown - Cardiac Hx Hypertension: Yes Hx Pacemaker: No - Pulmonary Hx Respiratory Disorders: Yes Hx Tuberculosis: Yes (62 years ago) - Neurological Hx Paralysis: No - HEENT Hx HEENT Disorder: Yes (pain in left ear) - Renal Hx Renal Disorder: No - Endocrine/Metabolic Hx Diabetes Mellitus Type 2: Yes Hx Hypothyroidism: Yes - Hematological/Oncological Hx Blood Transfusions: No Hx Blood Transfusion Reaction: No - Integumentary Hx Dermatological Disorder: Yes (lesion on nose removed, unsure if cancerous) - Musculoskeletal/Rheumatological Hx Musculoskeletal Disorders: No - Gastrointestinal Hx Gastrointestinal Disorders: Yes Other/Comment: "digestive problems". "something in stomach" - Genitourinary/Gynecological Hx Genitourinary Disorders: No - Psychiatric Hx Emotional Abuse: No Hx Physical Abuse: No Hx Substance Use: No - Past Surgical History Past Surgical History: No Previous - Surgical History Hx Coronary Stent: Yes Other/Comment: "bowel surgery" - Anesthesia Hx Anesthesia: No Hx Anesthesia Reactions: No Hx Malignant Hyperthermia: No - Suicidal Assessment Feels Threatened In Home Enviroment: No Family/Social History Family/Social History: No Known Family HX Smoking Status: Never Smoked Hx Alcohol Use: No Hx Substance Use: No Hx Substance Use Treatment: No Allergies/Home Meds Allergies/Adverse Reactions: Allergies No Known Allergies Allergy (Verified 02/01/19 15:51) Home Medications: Home Meds Medication Instructions Recorded Confirmed Unobtainable 02/01/19 02/01/19 Review of Systems - Review of Systems Constitutional: absent: Fevers ENT: absent: Sore Throat Respiratory: absent: SOB, Cough Cardiovascular: absent: Chest Pain Gastrointestinal: absent: Abdominal Pain, Constipation, Diarrhea, Nausea, Vomiting Genitourinary Female: absent: Dysuria Musculoskeletal: absent: Back Pain Skin: absent: Rash Neurological: Dizziness. absent: Headache, Focal Weakness, Gait Changes Psychiatric: absent: Suicidal Ideation Physical Exam Vital Signs Reviewed: Yes Vital Signs Pulse Resp BP Pulse Ox 02/01/19 16:00 67 18 157/80 H 99 Temperature: Afebrile Blood Pressure: Hypertensive Pulse: Regular Respiratory Rate: Normal Appearance: Positive for: Well-Appearing, Non-Toxic, Comfortable Mental Status: Positive for: Alert and Oriented X 3 - Systems Exam Head: Present: Atraumatic, Normocephalic Pupils: Present: PERRL Extroacular Muscles: Present: EOMI Conjunctiva: Present: Normal Mouth: Present: Moist Mucous Membranes, Other (patient is missing teeth, but no newly missing teeth) Nose (External): Present: Other (abrasions to nose) Neck: Present: Normal Range of Motion. No: MIDLINE TENDERNESS Respiratory/Chest: Present: Clear to Auscultation, Good Air Exchange. No: Res piratory Distress, Accessory Muscle Use Cardiovascular: Present: Regular Rate and Rhythm, Normal S1, S2. No: Murmurs Abdomen: No: Tenderness, Distention, Peritoneal Signs Back: Present: Normal Inspection Upper Extremity: Present: Swelling (Left hand swelling at base of 4th and 5th digits.). No: Cyanosis Lower Extremity: Present: Other (abrasion to right knee). No: Edema Neurological: Present: GCS=15, CN II-XII Intact, Speech Normal Skin: Present: Warm, Dry, Normal Color. No: Rashes Psychiatric: Present: Alert, Oriented x 3, Normal Insight, Normal Concentration Medical Decision Making ED Course and Treatment: 02/01/19 16:49 Impression: 83 year old female who presents to the ED s/p fall. Plan: -- Head CT without contrast -- Left hand and right knee X-ray -- Cardiac enzymes -- Blood work -- Labs -- EKG -- Urinalysis -- Tylenol -- Reassess and disposition Prior Visits: Notes and results from previous visits were reviewed. Progress Notes: 02/01/19 17:06 EKG shows NSR at 84bpm with non-specific st changes 02/01/19 17:48 IMPRESSION: No acute intracranial pathology. Age-related changes. No significant interval change. 02/01/19 17:55 Pending ua. Discussed patient's case with , who is aware of patient and wants for orthopedics, and accepts patient under his service for full admission. Splint applied by tech. - Lab Interpretations I have reviewed the lab results: Yes - RAD Interpretation Narrative RAD Interpretations (Text): 02/01/19 17:48 Left hand X-ray shows fracture of base of 5th metacarpal. interpreted by me. 02/01/19 17:[address] without contrast: Dictator : Blue Harrington MD. FINDINGS: HEMORRHAGE: No intracranial hemorrhage. BRAIN: No mass effect or edema. Atrophy. Chronic microvascular ischemic changes VENTRICLES: Unremarkable. No hydrocephalus. CALVARIUM: Unremarkable. PARANASAL SINUSES: Unremarkable as visualized. No significant inflammatory changes. MASTOID AIR CELLS: Unremarkable as visualized. No inflammatory changes. OTHER FINDINGS: None. IMPRESSION: No acute intracranial pathology. Age-related changes. No significant interval change. 02/01/19 17:58 Chest X-ray: Dictator : Reece Rinaldi MD FINDINGS: LUNGS: Clear. PLEURA: No pneumothorax or pleural fluid seen. CARDIOVASCULAR: Atherosclerotic calcification and mural plaque present. Finding s are seen throughout the aorta No radiographic findings to suggest acute or significant cardiovascular disease. OSSEOUS STRUCTURES: No significant abnormalities. VISUALIZED UPPER ABDOMEN: Normal. OTHER FINDINGS: None. IMPRESSION: No active disease.No significant interval change compared to the prior examination(s). Right Knee X-ray: Dictator : Blue Harrington MD FINDINGS: BONES: No acute fracture. JOINTS: Tricompartmental narrowing with degenerative spurring. JOINT EFFUSION: Small effusion. OTHER FINDINGS: None. IMPRESSION: No demonstrated fracture or dislocation. Degenerative changes. Radiology Orders: 02/01/19 16:10 HEAD W/O CONTRAST [CT] Stat HAND LEFT 3 VIEWS ROUTINE [RAD] Stat KNEE RIGHT 2 VIEWS (AP & LAT) [RAD] Stat 02/01/19 16:12 CHEST PORTABLE [RAD] Stat Appliance Technician: ED Physician, Radiologist - EKG Interpretation Interpreted by ED Physician: Yes Type: 12 lead EKG - Medication Orders Current Medication Orders: Acetaminophen (Tylenol 325mg Tab) 650 mg PO STAT STA Stop: 02/01/19 16:14 Last Admin: 02/01/19 16:32 Dose: 650 mg MAR Pain/Vitals Document 02/01/19 16:32 [email or web address] (Rec: 02/01/19 16:33 [email or web address] [id number]) Pain Reassessment Is This A Pain ReAssessment? No Sleep Is patient sleeping during reassessment? No Presence of Pain Presence of Pain Yes Pain Scale Used Protocol: PSCALES Pain Scale Used Numeric Location Pain Location Body Site Generalized Description Constant Intensity 8 Scale Used Numeric Pain Behavior Facial Grimacing Aggravating Factors Changing Position Alleviating Factors Medication - Scribe Statement The provider has reviewed the documentation as recorded by the Scribe Chip Chavez Provider Scribe Attestation: All medical record entries made by the Scribe were at my direction and personally dictated by me. I have reviewed the chart and agree that the record accurately reflects my personal performance of the history, physical exam, [facility] decision making, and the department course for this patient. I have also personally directed, reviewed, and agree with the discharge instructions and disposition. Disposition/Present on Arrival - Present on Arrival Any Indicators Present on Arrival: No History of DVT/PE: No History of Uncontrolled Diabetes: No Urinary Catheter: No History of Decub. Ulcer: No History Surgical Site Infection Following: None - Disposition Have Diagnosis and Disposition been Completed?: Yes Diagnosis: Syncope, Hand fracture Disposition: HOSPITALIZED Disposition Time: 17:50 Patient Plan: Admission Patient Problems: Current Active Problems Problem Status Onset Syncope Acute Hand fracture Acute Condition: FAIR
[2019-02-01 16:52] LABS: ALB/GLOB RATIO 1.4 (1.1-1.8); ALBUMIN 4.5 g/dL (3.0-4.8); ALT/SGPT 25 U/L (7-56); AST/SGOT 36 U/L (14-36); BLOOD UREA NITROGEN 32 mg/dL (7-21); CALCIUM 10.5 mg/dL (8.4-10.5); GFR NON-AFRICAN AMERICAN 47
[2019-02-01 17:03] LABS: TROPONIN I < 0.01 ng/mL
--- NOTE | 2019-02-01 17:48 | CT ---
Date of service: 02/01/2019 PROCEDURE: CT HEAD WITHOUT CONTRAST. HISTORY: head trauma, fall COMPARISON: CT head dated 11/16/2018. TECHNIQUE: Axial computed tomography images were obtained through the head/brain without intravenous contrast. Radiation dose: Total exam DLP = 1545.94 mGy-cm. This CT exam was performed using one or more of the following dose reduction techniques: Automated exposure control, adjustment of the mA and/or kV according to patient size, and/or use of iterative reconstruction technique. FINDINGS: HEMORRHAGE: No intracranial hemorrhage. BRAIN: No mass effect or edema. Atrophy. Chronic microvascular ischemic changes. VENTRICLES: Unremarkable. No hydrocephalus. CALVARIUM: Unremarkable. PARANASAL SINUSES: Unremarkable as visualized. No significant inflammatory changes. MASTOID AIR CELLS: Unremarkable as visualized. No inflammatory changes. OTHER FINDINGS: None. IMPRESSION: No acute intracranial pathology. Age-related changes. No significant interval change.
--- NOTE | 2019-02-01 17:57 | RAD ---
Date of service: 02/01/2019 PROCEDURE: CHEST RADIOGRAPH, 1 VIEW HISTORY: chest pain, fall COMPARISON: 11/16/2018. FINDINGS: LUNGS: Clear. PLEURA: No pneumothorax or pleural fluid seen. CARDIOVASCULAR: Atherosclerotic calcification and mural plaque present. Findings are seen throughout the aorta No radiographic findings to suggest acute or significant cardiovascular disease. OSSEOUS STRUCTURES: No significant abnormalities. VISUALIZED UPPER ABDOMEN: Normal. OTHER FINDINGS: None. IMPRESSION: No active disease.No significant interval change compared to the prior examination(s).
--- NOTE | 2019-02-01 17:57 | RAD ---
Date of service: 02/01/2019 PROCEDURE: Right Knee Radiographs. HISTORY: fall, abrasion to R knee COMPARISON: None. TECHNIQUE: 2 views obtained. FINDINGS: BONES: No acute fracture. JOINTS: Tricompartmental narrowing with degenerative spurring. JOINT EFFUSION: Small effusion. OTHER FINDINGS: None. IMPRESSION: No demonstrated fracture or dislocation. Degenerative changes.
--- NOTE | 2019-02-01 17:58 | RAD ---
PROCEDURE: Left Hand Radiographs. HISTORY: swelling base L 4th and 5tyh finger COMPARISON: None. TECHNIQUE: 3 views obtained. FINDINGS: BONES: No acute fracture. JOINTS: Degenerative changes. SOFT TISSUES: Normal. OTHER FINDINGS: None. IMPRESSION: No demonstrated fracture or dislocation. Degenerative changes.
[2019-02-01] MEDS: Insulin Reg-LOW-Coverage SC SCH (19:00)
[2019-02-01] MEDS: Levothyroxine 75 MCG TAB PO SCH ×2 (19:07→22:37)
[2019-02-01 21:14] LABS: URINE BILIRUBIN NEGATIVE (NEGATIVE); URINE BLOOD NEGATIVE (NEGATIVE); URINE GLUCOSE (UA) NEGATIVE (NEGATIVE); URINE LEUKOCYTE ESTERASE SMALL Leu/uL (NEGATIVE); URINE PROTEIN TRACE mg/dL (<30 mg/dL); URINE UROBILINOGEN 0.2 E.U./dL (<1 E.U./dL)
[2019-02-01 21:15] LABS: URINE APPEARANCE CLEAR (CLEAR); URINE COLOR YELLOW (YELLOW)
[2019-02-01 21:22] LABS: URINE CALCIUM OXALATE CRYSTALS SMALL /hpf; URINE EPITHELIAL CELLS 0 - 2 /hpf (0-5)
[2019-02-01] MEDS ORDERED: Non Formulary Medication (Simvastatin [Simvastatin] 40 MG) PO SCH (22:00)
[2019-02-02 01:31] VITALS: BMI 26.4
--- NOTE | 2019-02-02 07:30 | CP.PCM.HP ---
<Pushpa Marquez - Last Filed: 02/02/19 13:38> History of Present Illness - History of Present Illness History of Present Illness: PGY-3 H&P for Dr. Ortiz 83 yo female with PMH of HTN, hypothyroidism, diabetes, hyperlipidemia presents after fall. Patient states that she was walking to the shop when she fell and hit her face. She denies loss of consciousness. She also denies dizziness, lig htheadedness, sob, chest pain or palpitation at the time. She repeats a previous fall a few months ago but denies hitting her head, loss of consciousness or dizziness at that time. She report pain in her left head and right knee but states that she is able to tolerate it. Currently she states that she is feeling well and denies headaches, dizzinesss. 12 point ROS was negative except as stated. PMH: HTN, hypothyroidism, diabetes,, hyperlipidemia, basal cell carcinoma s/p surgery PSH: surgery for basal cell carcinoma, infrarenal aortic dissection repair social history: lives with daughter, denies smoking, alcohol use, illicit drug use allergy: NKDA Present on Admission - Present on Admission Any Indicators Present on Admission: No Review of Systems - Review of Systems All systems: reviewed and no additional remarkable complaints except Past Patient History - Infectious Disease Hx of Infectious Diseases: None - Tetanus Immunizations Tetanus Immunization: Unknown - Past Social History Smoking Status: Never Smoked - CARDIAC Hx Cardiac Disorders: Yes Hx Hypertension: Yes Hx Internal Defibrillator: Yes - PULMONARY Hx Respiratory Disorders: Yes Hx Tuberculosis: Yes (62 years ago) - NEUROLOGICAL Hx Neurological Disorder: No - HEENT Hx HEENT Problems: Yes (pain in left ear) - RENAL Hx Chronic Kidney Disease: No - ENDOCRINE/METABOLIC Hx Endocrine Disorders: Yes Hx Diabetes Mellitus Type 2: Yes Hx Hypothyroidism: Yes - HEMATOLOGICAL/ONCOLOGICAL Hx Blood Disorders: No - INTEGUMENTARY Hx Dermatological Problems: Yes (lesion on nose removed) - MUSCULOSKELETAL/RHEUMATOLOGICAL Hx Musculoskeletal Disorders: Yes Hx Falls: Yes Hx Unsteady Gait: Yes - GASTROINTESTINAL Hx Gastrointestinal Disorders: Yes Hx Gastroesophageal Reflux: Yes Other/Comment: "digestive problems" - GENITOURINARY/GYNECOLOGICAL Hx Genitourinary Disorders: No - PSYCHIATRIC Hx Emotional Abuse: No Hx Physical Abuse: No Hx Substance Use: No - SURGICAL HISTORY Hx Surgeries: Yes Hx Coronary Stent: Yes Other/Comment: "bowel surgery" - ANESTHESIA Hx Anesthesia: No Hx Anesthesia Reactions: No Hx Malignant Hyperthermia: No Meds Home Medications: Home Medication List Medication Instructions Recorded Confirmed Type Atorvastatin [Lipitor] 20 mg PO HS tab 02/02/19 Rx Levothyroxine [Synthroid] 75 mcg PO DAILY tab 02/02/19 Rx amLODIPine [Norvasc] 5 mg PO DAILY tab 02/02/19 Rx Allergies/Adverse Reactions: Allergies Allergy/AdvReac Type Severity Reaction Status Date / Time No Known Allergies Allergy Verified 02/01/19 15:51 Physical Exam - Constitutional Appears: Well, No Acute Distress - Head Exam Head Exam: ATRAUMATIC, NORMAL INSPECTION, NORMOCEPHALIC - Eye Exam Eye Exam: EOMI, Normal appearance, PERRL. absent: Conjunctival injection, Scleral icterus - ENT Exam ENT Exam: Mucous Membranes Moist - Neck Exam Neck exam: Positive for: Full Rom. Negative for: Tenderness - Respiratory Exam Respiratory Exam: Clear to Auscultation Bilateral, NORMAL BREATHING PATTERN. absent: Accessory Muscle Use, Chest Wall Tenderness, Decreased Breath Sounds, Rales, Rhonchi, Wheezes, Respiratory Distress - Cardiovascular Exam Cardiovascular Exam: REGULAR RHYTHM, RRR, +S1. absent: Bradycardia, Tachycardia, Diastolic murmur, Irregular Rhythm, Systolic Murmur - GI/Abdominal Exam GI & Abdominal Exam: Normal Bowel Sounds, Soft. absent: Diminished Bowel Sounds, Distended, Firm, Guarding, Tenderness - Extremities Exam Extremities exam: Positive for: full ROM. Negative for: calf tenderness, pedal edema Additional comments: tenderness of the right knee with abrasion and tenderness of left fifth and forth digit - Back Exam Back exam: NORMAL INSPECTION. absent: CVA tenderness (L), CVA tenderness (R), paraspinal tenderness - Neurological Exam Neurological exam: Alert, CN II-XII Intact, Oriented x3 - Psychiatric Exam Psychiatric exam: Normal Affect, Normal Mood Additional comments: no agitation, anxiety or depression - Skin Skin Exam: Abrasion, Dry, Normal Color, Warm Results - Vital Signs Recent Vital Signs: Last Vital Signs Temp 97.5 F L 02/02/19 06:00 Pulse 64 02/02/19 06:00 Resp 20 02/02/19 06:00 BP 155/73 H 02/02/19 06:00 Pulse Ox 99 02/01/19 20:57 - Labs Result Diagrams: 02/01/19 16:30 02/01/19 16:30 Labs: Laboratory Results - last 24 hr 02/01/19 02/01/19 02/01/19 16:30 16:30 20:44 WBC 9.1 RBC 3.92 Hgb 12.4 Hct 37.6 MCV 95.9 MCH 31.6 MCHC 33.0 RDW 13.1 Plt Count 287 MPV 9.3 Neut % (Auto) 61.9 Lymph % (Auto) 29.1 [place] % (Auto) 7.7 H Eos % (Auto) 1.1 L Baso % (Auto) 0.2 Lymph # (Auto) 2.7 [place] # (Auto) 0.7 H Eos # (Auto) 0.1 Baso # (Auto) 0.02 Absolute Neuts (auto) 5.66 Sodium 141 Potassium 4.5 Chloride 109 H Carbon Dioxide 21 Anion Gap 15 BUN 32 H Creatinine 1.1 Est GFR ( Amer) 57 Est GFR (Non-Af Amer) 47 POC Glucose (mg/dL) Random Glucose 98 Calcium 10.5 Total Bilirubin 0.4 AST 36 ALT 25 Alkaline Phosphatase 54 Lactate Dehydrogenase 472 Total Creatine Kinase 56 Troponin I < 0.01 Total Protein 7.9 Albumin 4.5 Globulin 3.3 Albumin/Globulin Ratio 1.4 Urine Color Yellow Urine Appearance Clear Urine pH 6.0 Ur Specific [place] 1.025 Urine Protein Trace H Urine Glucose (UA) Negative Urine Ketones Negative Urine Blood Negative Urine Nitrate Negative Urine Bilirubin Negative Urine Urobilinogen 0.2 Ur Leukocyte Esterase Small H Urine RBC None Urine WBC 2 - 5 Ur Epithelial Cells 0 - 2 Calcium Oxalate Crystal Small 02/01/19 21:27 WBC RBC Hgb Hct MCV MCH MCHC RDW Plt Count MPV Neut % (Auto) Lymph % (Auto) [place] % (Auto) Eos % (Auto) Baso % (Auto) Lymph # (Auto) [place] # (Auto) Eos # (Auto) Baso # (Auto) Absolute Neuts (auto) Sodium Potassium Chloride Carbon Dioxide Anion Gap BUN Creatinine Est GFR ( Amer) Est GFR (Non-Af Amer) POC Glucose (mg/dL) 141 H Random Glucose Calcium Total Bilirubin AST ALT Alkaline Phosphatase Lactate Dehydrogenase Total Creatine Kinase Troponin I Total Protein Albumin Globulin Albumin/Globulin Ratio Urine Color Urine Appearance Urine pH Ur Specific [place] Urine Protein Urine Glucose (UA) Urine Ketones Urine Blood Urine Nitrate Urine Bilirubin Urine Urobilinogen Ur Leukocyte Esterase Urine RBC Urine WBC Ur Epithelial Cells Calcium Oxalate Crystal Assessment & Plan - Assessment and Plan (Free Text) Assessment: 83 yo female with PMH of HTN, hypothyroidism, diabetes, hyperlipidemia presents after fall. - fall - HTN - hypothyroidism - diabetes - hyperlipidemia Orthopedic was consulted for questionable 5th digit fracture. Final reading of left hand xray showed no fractures or dislocation, degenerative changes. Right Knee xray no demonstrated fracture or dislocation, degenerative changes. Head CT showed no acute intracranial pathology, age-related changes. cxr showed no ac tive disease. UA showed small leukocyte esterase, no urinary symptoms. Continue home norvasc for BP control. Continue Lipitor for hyperlipidemia. continue synthriod for hypothyroidism. Insulin sliding scale for diabetic management while inpatient. PT evaluation pending. Case discussed with Dr. Ortiz <Stephane Ortiz S - Last Filed: 02/03/19 08:44> Results - Vital Signs Recent Vital Signs: Last Vital Signs Temp 97.6 F 02/02/19 11:47 Pulse 85 02/02/19 11:47 Resp 18 02/02/19 11:47 BP 147/82 02/02/19 11:47 Pulse Ox 99 02/01/19 20:57 - Labs Result Diagrams: 02/01/19 16:30 02/01/19 16:30 Labs: Laboratory Results - last 24 hr 02/02/19 02/02/19 07:51 11:06 POC Glucose (mg/dL) 135 H 234 H Assessment & Plan - Assessment and Plan (Free Text) Assessment: Pt was seen and examined by me. I agree with the note of the medical detailist. I have reviewed the medications and the last labs.
[2019-02-02] MEDS: Insulin Reg-LOW-Coverage SC SCH (07:57)
[2019-02-02] MEDS: Levothyroxine 75 MCG TAB PO SCH (09:52)
--- NOTE | 2019-02-02 10:47 | CON ---
DATE: 02/02/2019 ORTHOPEDIC CONSULT LOCATION: Room 277, bed 1. HISTORY OF PRESENT ILLNESS: The patient is an 83-year-old female who slipped and fell and came to the emergency room yesterday. She sustained an injury to her left hand. X-ray shows minimally displaced fracture at the base of the fifth metacarpal of her left hand. The initial fracture was missed because it was not out of place, but I looked at the x-ray that shows definitely it is a fracture of the fifth metacarpal base of the left hand. She has mild ecchymosis. No undue swelling noted with no displacement enough to operate on. I removed the ulnar gutter splint she was in as it was too much for an 83-year-old female. So we put her in a removable Velcro splint to protect that left hand and wrist. It is going to take four to six weeks to heal. I talked to her daughter, Abril at [phone] that she could go home once she is medically cleared, and I will see her in the office in about a month, but she is to wear the splint at the end of month and she could take off the splint to wash and move her fingers and wrist, and not to do any undo activities when she has the wrist splint on the left wrist. FINAL DIAGNOSIS: Stable fifth metacarpal fracture base of the left hand. No surgery is needed. John Looney DO [email or web address]
[2019-02-02 11:48] VITALS: BP 147/82; PULSE 85; RESP 18; TEMP 97.6
--- NOTE | 2019-02-02 13:45 | CP.PCM.DIS ---
<Pushpa Marquez - Last Filed: 02/02/19 15:19> Provider - Provider Date of Admission: 02/01/19 17:51 Attending physician: Stephane Ortiz MD Primary care physician: NO PRIMARY CARE PROVIDER Consults: 02/01/19 17:56 Orthopedic Consult Stat Comment: Consulting Provider: John Looney Consulting Physician: John Looney Reason for Consult: 5th digit fracture 02/02/19 00:53 Social Work Referral Routine Comment: admission assessment protocol Physician Instructions: Reason For Exam: lois score of 8 Time Spent in preparation of Discharge (in minutes): 45 Diagnosis - Discharge Diagnosis (1) Fall Status: Acute (2) Hand fracture Status: Acute Hospital Course - Lab Results Lab Results: Most Recent Lab Values WBC 9.1 10^3/uL (4.5-11.0) 02/01/19 16:30 RBC 3.92 10^6/uL (3.5-6.1) 02/01/19 16:30 Hgb 12.4 g/dL (12.0-16.0) 02/01/19 16:30 Hct 37.6 % (36.0-48.0) 02/01/19 16:30 MCV 95.9 fl (80.0-105.0) 02/01/19 16:30 MCH 31.6 pg (25.0-35.0) 02/01/19 16:30 MCHC 33.0 g/dl (31.0-37.0) 02/01/19 16:30 RDW 13.1 % (11.5-14.5) 02/01/19 16:30 Plt Count 287 10^3/uL (120.0-450.0) 02/01/19 16:30 MPV 9.3 fl (7.0-11.0) 02/01/19 16:30 Neut % (Auto) 61.9 % (50.0-68.0) 02/01/19 16:30 Lymph % (Auto) 29.1 % (22.0-35.0) 02/01/19 16:30 [place] % (Auto) 7.7 % (1.0-6.0) H 02/01/19 16:30 Eos % (Auto) 1.1 % (1.5-5.0) L 02/01/19 16:30 Baso % (Auto) 0.2 % (0.0-3.0) 02/01/19 16:30 Lymph # (Auto) 2.7 (1.2-3.4) 02/01/19 16:30 [place] # (Auto) 0.7 (0.1-0.6) H 02/01/19 16:30 Eos # (Auto) 0.1 (0.0-0.7) 02/01/19 16:30 Baso # (Auto) 0.02 K/mm3 (0.0-2.0) 02/01/19 16:30 Absolute Neuts (auto) 5.66 (1.4-6.5) 02/01/19 16:30 Sodium 141 mmol/L (132-148) 02/01/19 16:30 Potassium 4.5 mmol/L (3.6-5.0) 02/01/19 16:30 Chloride 109 mmol/L (98-107) H 02/01/19 16:30 Carbon Dioxide 21 mmol/L (21-33) 02/01/19 16:30 Anion Gap 15 (10-20) 02/01/19 16:30 BUN 32 mg/dL (7-21) H 02/01/19 16:30 Creatinine 1.1 mg/dl (0.7-1.2) 02/01/19 16:30 Est GFR ( Amer) 57 02/01/19 16:30 Est GFR (Non-Af Amer) 47 02/01/19 16:30 POC Glucose (mg/dL) 234 mg/dL (65-110) H 02/02/19 11:06 Random Glucose 98 mg/dL (70-110) 02/01/19 16:30 Calcium 10.5 mg/dL (8.4-10.5) 02/01/19 16:30 Total Bilirubin 0.4 mg/dL (0.2-1.3) 02/01/19 16:30 AST 36 U/L (14-36) 02/01/19 16:30 ALT 25 U/L (7-56) 02/01/19 16:30 Alkaline Phosphatase 54 U/L (38-126) 02/01/19 16:30 Lactate Dehydrogenase 472 U/L (333-699) 02/01/19 16:30 Total Creatine Kinase 56 U/L (35-230) 02/01/19 16:30 Troponin I < 0.01 ng/mL 02/01/19 16:30 Total Protein 7.9 g/dL (5.8-8.3) 02/01/19 16:30 Albumin 4.5 g/dL (3.0-4.8) 02/01/19 16:30 Globulin 3.3 gm/dL 02/01/19 16:30 Albumin/Globulin Ratio 1.4 (1.1-1.8) 02/01/19 16:30 Urine Color Yellow (YELLOW) 02/01/19 20:44 Urine Appearance Clear (CLEAR) 02/01/19 20:44 Urine pH 6.0 (4.7-8.0) 02/01/19 20:44 Ur Specific [place] 1.025 (1.005-1.035) 02/01/19 20:44 Urine Protein Trace mg/dL (<30 mg/dL) H 02/01/19 20:44 Urine Glucose (UA) Negative mg/dL (NEGATIVE) 02/01/19 20:44 Urine Ketones Negative mg/dL (NEGATIVE) 02/01/19 20:44 Urine Blood Negative (NEGATIVE) 02/01/19 20:44 Urine Nitrate Negative (NEGATIVE) 02/01/19 20:44 Urine Bilirubin Negative (NEGATIVE) 02/01/19 20:44 Urine Urobilinogen 0.2 E.U./dL (<1 E.U./dL) 02/01/19 20:44 Ur Leukocyte Esterase Small Miladis/uL (NEGATIVE) H 02/01/19 20:44 Urine RBC None /hpf (0-2) 02/01/19 20:44 Urine WBC 2 - 5 /hpf (0-6) 02/01/19 20:44 Ur Epithelial Cells 0 - 2 /hpf (0-5) 02/01/19 20:44 Calcium Oxalate Crystal Small /hpf (NONE) 02/01/19 20:44 - Hospital Course Hospital Course: PGY [address] Ortiz 83 yo female with PMH of HTN, hypothyroidism, diabetes, hyperlipidemia presents after fall. Patient states that she was walking to the shop when she fell and hit her face. She denies loss of consciousness, dizziness, lightheadedness, chest pain or palpitation at the time. She complained of pain in her left head and right knee but was able to tolerate it. Orthopedic was consulted for questionable 5th digit fracture, recommended to continue wearing hand split and follow up in 1 month. Left hand xray showed no fractures or dislocation. Right Knee xray no demonstrated fracture or dislocation. Head CT showed no acute intracranial pathology. Patient was continued on home medications for HTN, HLD, and hypothyroidism. She was on insulin sliding scale for diabetic management while inpatient. PT evaluation recommended home. Patient daughter was at bedside, hospital course and discharge plan was discussed. Case discussed with Dr. Ortiz Discharge Exam - Head Exam Head Exam: ATRAUMATIC, NORMAL INSPECTION, NORMOCEPHALIC - Eye Exam Eye Exam: EOMI, Normal appearance, PERRL. absent: Conjunctival injection, Periorbital swelling, Scleral icterus - ENT Exam ENT Exam: Mucous Membranes Moist - Neck Exam Neck exam: Full Rom, Normal Inspection - Respiratory Exam Respiratory Exam: Clear to PA & Lateral, NORMAL BREATHING PATTERN, UNREMARKABLE. absent: Accessory Muscle Use, Decreased Breath Sounds, Rales, Rhonchi, Wheezes, Respiratory Distress, Stridor - Cardiovascular Exam Cardiovascular Exam: REGULAR RHYTHM, RRR. absent: Bradycardia, Tachycardia, Diastolic murmur, Irregular Rhythm, Systolic Murmur - GI/Abdominal Exam GI & Abdominal Exam: Normal Bowel Sounds, Soft, Unremarkable. absent: Distended, Firm, Guarding, Tenderness - Extremities Exam Additional comments: abrasion and tenderness of the right knee. Tenderness of the 5th digit of the left hand - Back Exam Back exam: NORMAL INSPECTION. absent: CVA tenderness (L), CVA tenderness (R), paraspinal tenderness, vertebral tenderness - Neurological Exam Neurological exam: Alert, Oriented x3 - Psychiatric Exam Psychiatric exam: Normal Affect, Normal Mood - Skin Skin Exam: Abrasion, Dry, Normal Color, Warm Discharge Plan - Follow Up Plan Condition: FAIR Disposition: HOME/ ROUTINE Instructions: Hand Fracture (DC), Syncope (Fainting) (DC) Additional Instructions: - please keep your appointment with Dr. Locke on 02/04 - please follow up with the orthopedic doctor Dr. Mayen in 4 weeks. - the splint on the left hand/wrist can be removed to shower but please place it back so the hand can heal. - continue all home medications - if symptoms persist or worsen return to the nearest ER. Referrals: Samir Locke MD [Family Provider] - John Looney DO [Staff Provider] - PCP,NO [Primary Care Provider] - <Stephane Ortiz - Last Filed: 02/03/19 08:41> Provider - Provider Date of Admission: 02/01/19 17:51 Attending physician: Stephane Ortiz MD Primary care physician: NO PRIMARY CARE PROVIDER Consults: 02/01/19 17:56 Orthopedic Consult Stat Comment: Consulting Provider: John Looney Consulting Physician: John Looney Reason for Consult: 5th digit fracture 02/02/19 00:53 Social Work Referral Routine Comment: admission assessment protocol Physician Instructions: Reason For Exam: lois score of 8 Hospital Course - Lab Results Lab Results: Most Recent Lab Values WBC 9.1 10^3/uL (4.5-11.0) 02/01/19 16:30 RBC 3.92 10^6/uL (3.5-6.1) 02/01/19 16:30 Hgb 12.4 g/dL (12.0-16.0) 02/01/19 16:30 Hct 37.6 % (36.0-48.0) 02/01/19 16:30 MCV 95.9 fl (80.0-105.0) 02/01/19 16:30 MCH 31.6 pg (25.0-35.0) 02/01/19 16:30 MCHC 33.0 g/dl (31.0-37.0) 02/01/19 16:30 RDW 13.1 % (11.5-14.5) 02/01/19 16:30 Plt Count 287 10^3/uL (120.0-450.0) 02/01/19 16:30 MPV 9.3 fl (7.0-11.0) 02/01/19 16:30 Neut % (Auto) 61.9 % (50.0-68.0) 02/01/19 16:30 Lymph % (Auto) 29.1 % (22.0-35.0) 02/01/19 16:30 [place] % (Auto) 7.7 % (1.0-6.0) H 02/01/19 16:30 Eos % (Auto) 1.1 % (1.5-5.0) L 02/01/19 16:30 Baso % (Auto) 0.2 % (0.0-3.0) 02/01/19 16:30 Lymph # (Auto) 2.7 (1.2-3.4) 02/01/19 16:30 [place] # (Auto) 0.7 (0.1-0.6) H 02/01/19 16:30 Eos # (Auto) 0.1 (0.0-0.7) 02/01/19 16:30 Baso # (Auto) 0.02 K/mm3 (0.0-2.0) 02/01/19 16:30 Absolute Neuts (auto) 5.66 (1.4-6.5) 02/01/19 16:30 Sodium 141 mmol/L (132-148) 02/01/19 16:30 Potassium 4.5 mmol/L (3.6-5.0) 02/01/19 16:30 Chloride 109 mmol/L (98-107) H 02/01/19 16:30 Carbon Dioxide 21 mmol/L (21-33) 02/01/19 16:30 Anion Gap 15 (10-20) 02/01/19 16:30 BUN 32 mg/dL (7-21) H 02/01/19 16:30 Creatinine 1.1 mg/dl (0.7-1.2) 02/01/19 16:30 Est GFR ( Amer) 57 02/01/19 16:30 Est GFR (Non-Af Amer) 47 02/01/19 16:30 POC Glucose (mg/dL) 234 mg/dL (65-110) H 02/02/19 11:06 Random Glucose 98 mg/dL (70-110) 02/01/19 16:30 Calcium 10.5 mg/dL (8.4-10.5) 02/01/19 16:30 Total Bilirubin 0.4 mg/dL (0.2-1.3) 02/01/19 16:30 AST 36 U/L (14-36) 02/01/19 16:30 ALT 25 U/L (7-56) 02/01/19 16:30 Alkaline Phosphatase 54 U/L (38-126) 02/01/19 16:30 Lactate Dehydrogenase 472 U/L (333-699) 02/01/19 16:30 Total Creatine Kinase 56 U/L (35-230) 02/01/19 16:30 Troponin I < 0.01 ng/mL 02/01/19 16:30 Total Protein 7.9 g/dL (5.8-8.3) 02/01/19 16:30 Albumin 4.5 g/dL (3.0-4.8) 02/01/19 16:30 Globulin 3.3 gm/dL 02/01/19 16:30 Albumin/Globulin Ratio 1.4 (1.1-1.8) 02/01/19 16:30 Urine Color Yellow (YELLOW) 02/01/19 20:44 Urine Appearance Clear (CLEAR) 02/01/19 20:44 Urine pH 6.0 (4.7-8.0) 02/01/19 20:44 Ur Specific [place] 1.025 (1.005-1.035) 02/01/19 20:44 Urine Protein Trace mg/dL (<30 mg/dL) H 02/01/19 20:44 Urine Glucose (UA) Negative mg/dL (NEGATIVE) 02/01/19 20:44 Urine Ketones Negative mg/dL (NEGATIVE) 02/01/19 20:44 Urine Blood Negative (NEGATIVE) 02/01/19 20:44 Urine Nitrate Negative (NEGATIVE) 02/01/19 20:44 Urine Bilirubin Negative (NEGATIVE) 02/01/19 20:44 Urine Urobilinogen 0.2 E.U./dL (<1 E.U./dL) 02/01/19 20:44 Ur Leukocyte Esterase Small Miladis/uL (NEGATIVE) H 02/01/19 20:44 Urine RBC None /hpf (0-2) 02/01/19 20:44 Urine WBC 2 - 5 /hpf (0-6) 02/01/19 20:44 Ur Epithelial Cells 0 - 2 /hpf (0-5) 02/01/19 20:44 Calcium Oxalate Crystal Small /hpf (NONE) 02/01/19 20:44 - Hospital Course Hospital Course: Pt was seen and examined by me. I agree with the note of the medical aide. I have reviewed the medications and the last labs.
--- NOTE | 2019-02-02 22:36 | CARD ---
APPROVED REPORT Date of service: 02/01/2019 EKG Measurement Heart [id number] [id number] <Conclusion> Normal sinus rhythm Nonspecific ST and T wave abnormality Abnormal ECG
--- NOTE | 2019-02-03 18:46 | HP ---
DATE OF EXAM: 02/03/2019 HOSPITAL COURSE: The patient was seen and examined. I do agree with the note of the biomedical scientist. I was involved in the plan of care. The patient had a fall. She did have an injury to her left hand as well as her chin. X-rays of her left hand did not show a fracture. The patient was seen by Orthopedics. She was advised about possible rehab, but she prefers to go home. The patient is on Lipitor for dyslipidemia. She is on Synthroid for hypothyroidism. The patient is comfortable. She denies any pain. I did speak to the patient's daughter at the bedside to give an update on the patient's diagnosis and plan of care. The patient is asking to be discharged home and daughter agreed. CONDITION: Stable. ACTIVITY: Increased as tolerated. Stephane Ortiz MD
--- NOTE | 2019-02-04 01:58 | DS ---
HOSPITAL COURSE: The patient did not wish to stay in the hospital, so she was discharged. I spoke with the patient's daughter who is at the bedside. She is going to follow with the primary care doctor. She is advised to get a walker to help with the ambulation. She has had 2 falls in the last three months. Stephane Ortiz MD
== END 2019-02-02 13:11 | disposition home or self-care (01) ==
LOC: ED 15:46 → ERH 17:51 → UNDOADMOB 17:51 → ERH 20:15 → 2RSO 20:57
PROVIDERS: ADMIT Internal Medicine Nephrology; ATTEND Internal Medicine Nephrology
DX: S62.317A Displaced fracture of base of fifth metacarpal bone, left hand, initial encounter for closed fracture (principal); R42 Dizziness and giddiness; E11.9 Type 2 diabetes mellitus without complications; I10 Essential (primary) hypertension; E78.5 Hyperlipidemia, unspecified; E03.9 Hypothyroidism, unspecified; W01.0XXA Fall on same level from slipping, tripping and stumbling without subsequent striking against object, initial encounter; Y93.01 Activity, walking, marching and hiking; Y92.513 Shop (commercial) as the place of occurrence of the external cause; Z79.890 Hormone replacement therapy; Z85.828 Personal history of other malignant neoplasm of skin; Z91.81 History of falling; Z86.11 Personal history of tuberculosis
CPT/HCPCS: 70450; 71045; 73130; 73560; 80053; 81001; 82550; 82948; 83615; 84484; 85025; 93005; 97162; 97530; 99285; G0378; G8978; G8979